=== PATIENT | male | born 1985 | race Caucasian/White ===

== ENCOUNTER 2020-01-10 05:00 | Emergency (ER) | payer OTHER, SELFPAY ==
[2020-01-10 05:08] VITALS: BP 116/83; PULSE 83; RESP 20; TEMP 36; O2SAT 96
--- NOTE | 2020-01-10 05:26 | ED.GENADULT ---
HPI - General Adult General Chief complaint: Urogenital-Male Stated complaint: sti exposure Time Seen by Provider: 01/10/20 05:02 Source: RN notes reviewed History of Present Illness HPI narrative: Patient presents emergency department from home for possible STD exposure. Patient states he had unprotected sexual intercourse approximately 1 week ago. He states that since that time he only symptom is noticed an occasional burning with urination. He does state though that his significant other has had vaginal discharge and he was concerned of a possible STD. He denies having fevers or chills abdominal pain testicular pain or any other symptoms Related Data Allergies Allergy/AdvReac Type Severity Reaction Status Date / Time No Known Allergies Allergy Unknown Verified 12/16/18 17:26 No Known Allergies Allergy Uncoded 12/16/18 17:26 Review of Systems Review of Systems: Narrative: Gen.: Denies fevers or chills Respiratory: Denies shortness of breath or cough CV: Denies chest pain GI: Denies abdominal pain nausea, emesis or diarrhea see HPI Musculoskeletal: Denies back pain or muscle pain Neuro: Denies headache Skin: Denies rash Except as documented, all other systems reviewed and negative [facility] Past Medical History Medical History (Updated 01/10/20 @ 06:00 by Ricardo Weaver DO) Patient denies significant medical history Social History Social History (Updated 01/10/20 @ 05:28 by Ricardo Weaver DO) Smoking status: Current every day smoker Exam Narrative: Exam Narrative: APPEARANCE: No acute distress, nontoxic, resting in bed EYES: EOMI HEENT: Normocephalic, atraumatic, OMM RESPIRATORY: No respiratory distress Clear to auscultation bilaterally with no rhonchi wheezing or rales. CARDIOVASCULAR: Regular rate and rhythm without murmurs rubs or gallops. ABDOMINAL: Soft, nontender, nondistended, no rebound or guarding MUSCULOSKELETAl: Moves all extremities. NEURO: Awake and alert. Following commands, speech normal, no focal deficits SKIN:: Warm, dry. No rashes lesions or abrasions PSYCHIATRIC: Normal affect/mood, Course Course Emergency Course: Discussed with patient testing via swab versus urine for chlamydia and gonorrhea RNA request urine at this time. Of note the patient significant other is in the emergency department being tested and had negative trichomonas test Discussed with patient results of workup and diagnosis. Discussed need for follow-up with primary care, proper use of medication, and reasons to return to the emergency department. Patient understands and agrees to current treatment plan Vital Signs Vital signs: Vital Signs Temperature 96.8 F L 01/10/20 05:08 Pulse Rate 83 01/10/20 05:08 Respiratory Rate 20 01/10/20 05:08 Blood Pressure 116/83 01/10/20 05:08 Pulse Oximetry 96 01/10/20 05:08 Temperature 96.8 F L 01/10/20 05:08 Pulse Rate 83 01/10/20 05:08 Respiratory Rate 20 01/10/20 05:08 Blood Pressure 116/83 01/10/20 05:08 Pulse Oximetry 96 01/10/20 05:08 Medical Decision Making Vital Signs Vital Signs: Vital Signs Temperature 96.8 F L 01/10/20 05:08 Pulse Rate 83 01/10/20 05:08 Respiratory Rate 20 01/10/20 05:08 Blood Pressure 116/83 01/10/20 05:08 Pulse Oximetry 96 01/10/20 05:08 Temperature 96.8 F L 01/10/20 05:08 Pulse Rate 83 01/10/20 05:08 Respiratory Rate 20 01/10/20 05:08 Blood Pressure 116/83 01/10/20 05:08 Pulse Oximetry 96 01/10/20 05:08 Lab Data Labs: Lab Results 01/10/20 Range/Units 05:29 C.trachomatis RNA (TMA) Pending N.gonorrhoeae RNA (TMA) Pending Discharge Plan Discharge Clinical Impression: Sexually transmitted disease exposure Patient Disposition: Home, Self-Care Condition: Stable Instructions: Antibiotic Form, Sexually Transmitted Diseases (ED) Additional Instructions: Return for fever abdominal pain or any other symptoms of concern Follow-up/Refe
[2020-01-10] MEDS: cefTRIAXone 250 MG VIAL IM (06:14)
[2020-01-10] MEDS: AZITHROMYCIN 250 MG TABLET 1000 MG PO (06:14)
[2020-01-10 06:15] VITALS: BP 124/71; PULSE 80; RESP 18; O2SAT 99
== END 2020-01-10 06:17 | disposition home or self-care (01) ==
LOC: ANHED 06:03
PROVIDERS: Emergency Provider Emergency Medicine; PCP Nurse Practitioner Family
DX: Z20.2 Contact with and (suspected) exposure to infections with a predominantly sexual mode of transmission (principal); F17.200 Nicotine dependence, unspecified, uncomplicated
CPT/HCPCS: 87491; 87591; 96372; 99283; A9270; J0696

== ENCOUNTER 2020-05-02 04:48 | Emergency (ER) | payer OTHER, SELFPAY ==
[2020-05-02 04:53] VITALS: BP 141/92; PULSE 120; RESP 18; TEMP 36.8; O2SAT 99
--- NOTE | 2020-05-02 05:22 | ED.GENADULT ---
HPI - General Adult General Chief complaint: Extremity Problem,Nontraumatic Stated complaint: bilat shoulder pain x 4 months now to my back. Time Seen by Provider: 05/02/20 05:00 Source: patient Mode of arrival: ambulatory Limitations: no limitations History of Present Illness HPI narrative: Patient is 34 years old white male presents with intermittent pain across upper back, shoulders and elbow for the last 4 to 5 months. Patient is physically inactive, denying any trauma. Denying any fever, chills, nausea, vomiting, shortness of breath, chest pain or abdominal pain. Related Data Allergies Allergy/AdvReac Type Severity Reaction Status Date / Time No Known Allergies Allergy Unknown Verified 12/16/18 17:26 No Known Allergies Allergy Uncoded 12/16/18 17:26 Review of Systems Review of Systems: Narrative: CONSTITUTIONAL: Denies fever, chills, or sweats. EYES: Denies visual changes, redness, or discharge. ENT: Denies rhinorrhea, congestion, sore throat, or otalgia. CARDIOVASCULAR: Denies chest pain, palpitations, or edema. RESPIRATORY: Denies cough or dyspnea. GASTROINTESTINAL: Denies abdominal pain, nausea, vomiting, or diarrhea. GENITOURINARY: Denies dysuria or hematuria. SKIN: Denies rash or itching. MUSCULOSKELETAL: Denies back pain, joint pain, or myalgia. NEUROLOGIC: Denies headache, numbness, or weakness. PSYCHIATRIC: Denies anxiety or depression. PMFSH Past Medical History Medical History Patient denies significant medical history Social History Social History Smoking status: Current every day smoker Exam Narrative: Exam Narrative: General appearance: Well-developed, well-nourished, patient looks very healthy Skin: Normal color Head: Normocephalic, nontraumatic Eyes: Clear conjunctiva ENT: Oropharynx normal, ears normal, nose normal Neck: Supple, nontender Chest and respiratory: Airway patent, no respiratory distress, no accessory muscle use Heart: Regular rate/rhythm Abdomen: Soft, nontender, no organomegaly, quiet bowel sounds Vascular: Normal peripheral pulses, normal capillary refill. Musculoskeletal: Normal range of motion, nontender back, no swelling, no deformity Neurologic: Alert and oriented ?3, [employer] is normal as tested, no gross motor deficit Course Course Emergency Course: Stable Vital Signs Vital signs: Vital Signs Temperature 36.8 C 05/02/20 04:53 Pulse Rate 120 H 05/02/20 04:53 Respiratory Rate 18 05/02/20 04:53 Blood Pressure 141/92 H 05/02/20 04:53 Pulse Oximetry 99 05/02/20 04:53 Temperature 36.8 C 05/02/20 04:53 Pulse Rate 120 H 05/02/20 04:53 Respiratory Rate 18 05/02/20 04:53 Blood Pressure 141/92 H 05/02/20 04:53 Pulse Oximetry 99 05/02/20 04:53 Medical Decision Making MDM Narrative Medical decision making narrative: Patient came with muscle pain. Denying associated symptoms. Patient probably need to do physical therapy or workout. My plan to discharge him on anti-inflammatory medication and PPI then referred him to his family physician if there is no improvement Differential Diagnosis Differential Diagnosis: Musculoskeletal pain Vital Signs Vital Signs: Vital Signs Temperature 36.8 C 05/02/20 04:53 Pulse Rate 120 H 05/02/20 04:53 Respiratory Rate 18 05/02/20 04:53 Blood Pressure 141/92 H 05/02/20 04:53 Pulse Oximetry 99 05/02/20 04:53 Temperature 36.8 C 05/02/20 04:53 Pulse Rate 120 H 05/02/20 04:53 Respiratory Rate 18 05/02/20 04:53 Blood Pressure 141/92 H 05/02/20 04:53 Pulse Oximetry 99 05/02/20 04:53 Critical Care
[2020-05-02] MEDS: KETOROLAC (*BKC) 60 MG/2 ML VIAL IM (05:45)
[2020-05-02] MEDS: CYCLOBENZAPRINE HCL 10 MG TABLET PO (05:45)
[2020-05-02 06:00] VITALS: BP 117/84; PULSE 111; RESP 16; O2SAT 96
== END 2020-05-02 06:00 | disposition home or self-care (01) ==
PROVIDERS: Emergency Provider Emergency Medicine; PCP Physician Assistant
DX: M25.512 Pain in left shoulder (principal); M25.511 Pain in right shoulder; F17.200 Nicotine dependence, unspecified, uncomplicated
CPT/HCPCS: 96372; 99283; A9270; J1885

== ENCOUNTER 2020-09-18 02:03 | Emergency (ER) | payer MEDICAID, SELFPAY ==
--- NOTE | ~2020-09-18 | CT_ITS ---
EXAMINATION: CT brain wo con INDICATION: Head injury COMPARISON: None TECHNIQUE: Standard unenhanced head CT. The dose-length product (DLP) was 605.33 mGy-cm. The mA was a djusted according to patient size. Iterative reconstruction technique was employed. FINDINGS: There is no acute infarction or abnormal mass lesion. There is a large laceration of the ri ght frontal scalp. There is a hematoma of the left parietal scalp. Areas of hyperattenuation are note d in the bilateral frontal lobes as well as the right temporal lobe. The ventricles are normal. There is no abnormal mass effect or midline shift. The fernandez-white matter differentiation is normal. The ba celia cisterns are patent. The orbits are normal. There is partial opacification of the bilateral maxil delaney sinuses and the left sphenoid sinus. IMPRESSION: 1. Acute subarachnoid hemorrhage in the frontal lobes and right temporal lobe, left parietal scalp he matoma, and right frontal scalp laceration. These findings were discussed with Dr. Royce Zimmerman MD in the Emergency Department at 0256 hours on 09/18/2020 by the [employer] Radiologist. Reviewed, dictated and finalized at location A. IMPRESSION: 1. Acute subarachnoid hemorrhage in the frontal lobes and right temporal lobe, left parietal scalp hematoma, and right frontal scalp laceration. These finding s were discussed with Dr. Royce Zimmerman MD in the Emergency Department at 0256 hours on 09/18/2020 by the [employer] Radiologist.
--- NOTE | ~2020-09-18 | CT_ITS ---
EXAMINATION: CT cervical spine wo con DATE: 09/18/2020 02:29 INDICATION: Neck pain, head injury TECHNIQUE: Computed tomography (CT) of the cervical spine was performed without intravenous contrast. The dose-length product (DLP) was 400.21 mGy-cm. Automated exposure control and iterative reconstruc tion technique were employed. COMPARISON: None FINDINGS: There is no fracture, dislocation, or subluxation. The vertebral body heights, alignment, a nd intervertebral disc spaces are normal. The paravertebral soft tissues are unremarkable. The odonto id is intact. IMPRESSION: 1. No acute osseous abnormality. Reviewed, dictated and finalized at location A.
[2020-09-18 02:06] VITALS: BP 142/93; PULSE 107; RESP 20; TEMP 36.7; O2SAT 98
--- NOTE | 2020-09-18 02:21 | PC.NURSE ---
Patient taken to CT via stretcher.
--- NOTE | 2020-09-18 02:32 | ED.HEATRA ---
HPI - Head Injury General Chief complaint: Head Injury Stated complaint: head laceration Time Seen by Provider: 09/18/20 02:10 History of Present Illness HPI Narrative: Patient is a 35-year-old male who presents to the ER with head trauma. Patient with large laceration to the right forehead and laceration behind the left ear. Patient reports remembers trying to walk down some stairs but is unsure if he walked down them or fell down them. He was dropped off by a friend who does not have a cell phone for him to contact to find out what happened. Patient reports he drinks 6 Budweiser's and had a pint of whiskey this evening. Has no complaints of change in vision/dizziness/nausea/vomiting/headache. Related Data Home Medications Medication Instructions Recorded Confirmed mirtazapine [Remeron] mg 09/18/20 Allergies Allergy/AdvReac Type Severity Reaction Status Date / Time No Known Allergies Allergy Unknown Verified 09/18/20 02:16 Review of Systems Review of Systems: ROS unobtainable: Yes other (Intoxication limits review of systems.) PMFSH Past Medical History Medical History (Updated 09/18/20 @ 03:28 by Royce Zimmerman MD) Patient denies significant medical history Surgical History Surgical History (Updated 09/18/20 @ 02:34 by Royce Zimmerman MD) History of fundoplication Social History Social History (Updated 09/18/20 @ 02:34 by Royce Zimmerman MD) Smoking status: Current every day smoker Alcohol intake: current Exam Narrative: Exam Narrative: GENERAL: Ill-appearing, well-nourished, and in no acute distress. HEAD: Normocephalic, gaping 4x 1.5 cm laceration right forehead. Dried blood across the face/scalp/neck. 2 cm laceration behind the left ear over the mastoid with soft tissue swelling. EYES: PERRL and EOMI. Contusion around right eye. ENT: Mucous membranes moist. NECK: Supple. C-Spine immobilized. CHEST: Clear to auscultation. No respiratory distress. HEART: Regular rate and rhythm. Normal peripheral pulses. ABDOMEN: Soft, nontender, nondistended. EXTREMITIES: Normal range of motion. No edema. SKIN: Warm, dry, no rash. NEURO: Alert and oriented x3. Course Course Emergency Course: Patient accepted for transfer to [facility]. After transfer patient became very argumentative and was wanting to walk out AGAINST MEDICAL ADVICE or sign papers to get discharged. Discussed that due to his intoxication, and his multiple areas of brain bleed I do not feel he is able to make an informed decision to refuse any sort of care. Patient was then given Ativan 2 mg. An ambulance is on the leg. Patient's mother was contacted by the patient and she was wanting the patient to be taken to [facility] by ambulance at the recommendation of this physician. After this patient continues to be agitated and received fentanyl for pain. He then calmed down. Ambulance arrived and he was agreeable to transport after once again contacting his mother via [employer] to discuss the situation. Vital Signs Vital signs: Vital Signs Temperature 98.1 F 09/18/20 02:06 Pulse Rate 107 H 09/18/20 02:06 Respiratory Rate 20 09/18/20 02:06 Blood Pressure 142/93 H 09/18/20 02:06 Pulse Oximetry 98 09/18/20 02:06 Temperature 98.1 F 09/18/20 03:45 Pulse Rate 102 H 09/18/20 03:45 Respiratory Rate 18 09/18/20 03:45 Blood Pressure 131/90 09/18/20 03:45 Pulse Oximetry 98 09/18/20 03:45 MDM - Head Injury Imaging Data Radiologist's impression: CT head: Multiple areas of subarachnoid hemorrhage. Pneumocephalus left temporal region. CT cervical spine: No acute fracture of the cervical spine. Critical Care Time Critical Care Time Critical Care Time: Yes Total Critical Care Time: 35 Discharge Plan Discharge Clinical Impression: Traumatic subarachnoid hemorrhage, Pneumocephalus Patient Disposition: Acute Care Hospital Condition: Serious Prescriptions: No Actio
--- NOTE | 2020-09-18 02:49 | PC.NURSE ---
VORB place patient in c-collar. C-collar placed.
--- NOTE | 2020-09-18 03:14 | PC.NURSE ---
Patient informed of his condition and need for transport. Patient removed his c-collar and attempting to remove IV. Patient informed of the severity of his condition. Patient started yelling and got out of bed. ERP, this nurse and digital imaging technician in room. Patient stating I know my rights, I am leaving here. My mom is coming to pick me up to take me there. I am leaving now! Patient informed that he is unable to do so, he is intoxicated. ERP in room and gave VORB at 0322 to give 2mg ativan IVP. Patient given med. ERP explaining to patient on why he cannot leave. Patient assisted back to [facility].
[2020-09-18] MEDS: LORazepam INJ (*CRX) 2 MG/ML VIAL (03:22)
--- NOTE | 2020-09-18 03:22 | PC.NURSE ---
VORB give 2mg ativan IVP. Given at 0322.
[2020-09-18] MEDS: fentaNYL CITRATE INJ (*CRX) 100 MCG/2 ML VIAL 50 MCG IV PUSH (03:35)
--- NOTE | 2020-09-18 03:41 | PC.NURSE ---
EMS here to transport patient. Patient agreeable at this time. C-collar placed back on.
[2020-09-18 03:45] VITALS: BP 131/90; PULSE 102; RESP 18; TEMP 36.7; O2SAT 98
== END 2020-09-18 03:47 | disposition short-term general hospital (02) ==
PROVIDERS: Emergency Provider Emergency Medicine; PCP Physician Assistant
DX: S06.6X9A Traumatic subarachnoid hemorrhage with loss of consciousness of unspecified duration, initial encounter (principal); G93.89 Other specified disorders of brain; F17.210 Nicotine dependence, cigarettes, uncomplicated; W10.9XXA Fall (on) (from) unspecified stairs and steps, initial encounter
CPT/HCPCS: 70450; 72125; 96374; 96375; 99291; J2060; J3010; L0140

== ENCOUNTER 2020-10-19 21:31 | Emergency (ER) | payer BC, SELFPAY ==
[2020-10-19 21:49] VITALS: BP 136/95; PULSE 105; RESP 14; TEMP 36.6; O2SAT 99
[2020-10-19 22:36] VITALS: BP 108/74; PULSE 97; RESP 18; TEMP 36.6; O2SAT 96
--- NOTE | 2020-10-19 23:24 | ED.WOUNDLAC ---
HPI - Wound/Laceration General Chief Complaint: Wound/Laceration Stated Complaint: INFECTED WOUND Time Seen by Provider: 10/19/20 22:41 Source: patient and family Mode of arrival: ambulatory Limitations: no limitations History of Present Illness HPI narrative: 35-year-old here with complaints of purulent drainage coming from his laceration which he sustained a month ago. Patient states that he will was hit by a baseball had sutures placed here in the ER and was later transferred to [facility]. For the past few days he has noticed some pus coming out from the site also states that he noticed a small suture material. Denies any fever or chills. Onset (ago): day(s) (2) Location: face Associated symptoms: none Related Data Home Medications Medication Instructions Recorded Confirmed mirtazapine [Remeron] mg 09/18/20 Allergies Allergy/AdvReac Type Severity Reaction Status Date / Time No Known Allergies Allergy Unknown Verified 10/19/20 22:44 Review of Systems Review of Systems: All systems reviewed & are unremarkable except as noted in HPI and below Constitutional: Constitutional: Reports no additional constitutional complaints Eyes: Eyes: Reports no additional eye complaints Cardiovascular: Cardiovascular: Reports no additional cardiovascular complaints Respiratory: Respiratory: Reports no additional respiratory complaints Gastrointestinal: Gastrointestinal: Reports no additional gastrointestinal complaints Musculoskeletal: Musculoskeletal: Reports no additional musculoskeletal complaints Integumentary/Breasts: Skin/Breast: Reports as per HPI Neurologic: Reports system reviewed and no additional complaints, except as documented PMFSH Past Medical History Medical History Patient denies significant medical history Surgical History Surgical History History of fundoplication Social History Social History Smoking status: Current every day smoker Alcohol intake: current Exam Narrative: GENERAL: Well-appearing, well-nourished, and in no acute distress. HEAD: Normocephalic, atraumatic. a small area on the right side of the face has scab with a suture material protruding through the skin and some purulent drainage . EYES: PERRLA and EOMI. ENT: Nares clear, no rhinorrhea or epistaxis. Mucous membranes moist. NECK: Supple. CHEST: Clear to auscultation. No respiratory distress. HEART: Regular rate and rhythm. No murmur heard. Normal peripheral pulses. EXTREMITIES: Normal range of motion. No edema. SKIN: Warm, dry, no rash. NEURO: No focal deficits. Alert and oriented x3. PSYCH: Normal mood and affect. Course Vital Signs Vital signs: Vital Signs Temperature 36.6 C 10/19/20 21:49 Pulse Rate 105 H 10/19/20 21:49 Respiratory Rate 14 10/19/20 21:49 Blood Pressure 136/95 H 10/19/20 21:49 Pulse Oximetry 99 10/19/20 21:49 Temperature 36.6 C 10/19/20 22:36 Pulse Rate 97 10/19/20 22:36 Respiratory Rate 18 10/19/20 22:36 Blood Pressure 108/74 10/19/20 22:36 Pulse Oximetry 96 10/19/20 22:36 Procedures Other Procedure Procedure 1: Other Procedure: suture was removed with forceps Discharge Plan Discharge Clinical Impression: Infected wound Patient Disposition: Home, Self-Care Condition: Stable Instructions: Antibiotic Form, Acute Wounds (DC) Additional Instructions: take antibiotic as prescribe Prescriptions: New amoxicillin-pot clavulanate [Augmentin] 875-125 mg tablet 1 tablet PO Q12H Qty: 20 RF: 0 No Action mirtazapine [Remeron] 30 mg Tablet RF: 0 Follow-up/Referrals: PHYSICIAN NOT ON STAFF,NONSTAFF [Primary Care Provider] - Shaggy Fisher MD [Physician] - Time of Disposition: 23:26
--- NOTE | 2020-10-19 23:53 | PC.NURSE ---
Pt left before being given discharge papers. Multiple attempts made to contact patient over the phone, no success at this time.
== END 2020-10-19 23:45 | disposition home or self-care (01) ==
PROVIDERS: Emergency Provider Family Medicine
DX: S01.81XA Laceration without foreign body of other part of head, initial encounter (principal); L08.9 Local infection of the skin and subcutaneous tissue, unspecified; W21.03XA Struck by baseball, initial encounter
CPT/HCPCS: 99283

== ENCOUNTER 2020-12-20 20:19 | Emergency (ER) | payer BC, SELFPAY ==
--- NOTE | ~2020-12-20 | CT_ITS ---
EXAMINATION: CT brain wo con EXAM DATE: 12/20/2020 20:52 INDICATION: Head injury, neuro symptoms. Bilateral hand numbness. TECHNIQUE: Spiral CT of the head was performed without contrast. Axial, coronal and sagittal images were reviewed. The dose-length product (DLP) for this examination was 605.33 mGy-cm. The exposure w as tailored according to patient size, and iterative reconstruction (ASIR) was used as additional dos e reduction technique. There is no prior study for comparison. FINDINGS: There is no acute intraparenchymal hemorrhage. No evidence of intraparenchymal brain mass lesion. No evidence of acute infarction. There is no mass effect or midline shift. The ventricles are normal in size. There are no extra-axial collections. There are no acute calvarial fractures. T he orbits are unremarkable. Soft tissue is unremarkable. The visualized sinuses and mastoid air kurt ls are well aerated. Resolution of previously seen subarachnoid hemorrhage. IMPRESSION: 1. No acute intracranial findings. Reviewed, dictated and finalized at location A.
[2020-12-20 20:33] VITALS: BP 153/99; PULSE 108; RESP 14; TEMP 36.8; O2SAT 99
[2020-12-20 21:39] VITALS: BP 128/71; PULSE 89; RESP 14; TEMP 36.6; O2SAT 98
[2020-12-20 21:52] VITALS: BP 120/88; PULSE 97; RESP 16; O2SAT 98
--- NOTE | 2020-12-20 22:23 | ED.NEUROSD ---
HPI - Neuro Symptoms/Deficit General Chief Complaint: Neuro Symptoms/Deficit Stated Complaint: bilateral hand numbness, 1 month Time Seen by Provider: 12/20/20 22:05 Source: patient History of Present Illness HPI Narrative: Patient presents with concerns for paresthesias to his bilateral hands. Patient reports he was seen a few months ago for a head injury had head bleeds was referred to [facility] was discharged home. Patient ports he has not followed up with anyone since his head injuries. Couple weeks after his head injury he noted bilateral numbness to his hands describes sensation in his hands fall asleep. Symptoms are constant all fingers and on the palmar surface of his hands. Denies any focal weakness. Also reports intermittent shooting sensation of numbness throughout his body. Patient is unable to identify any clear triggering events. His symptoms were not more prevalent any particular time of day they do not appear to be associated with headache. Denies any additional head injuries. Related Data Home Medications Medication Instructions Recorded Confirmed mirtazapine [Remeron] mg 09/18/20 Allergies Allergy/AdvReac Type Severity Reaction Status Date / Time No Known Allergies Allergy Unknown Verified 12/20/20 21:59 Review of Systems Review of Systems: CONSTITUTIONAL: Denies fever, chills, or sweats. EYES: Denies visual changes, redness, or discharge. ENT: Denies rhinorrhea, congestion, sore throat, or otalgia. CARDIOVASCULAR: Denies chest pain, palpitations, or edema. RESPIRATORY: Denies cough or dyspnea. GASTROINTESTINAL: Denies abdominal pain, nausea, vomiting, or diarrhea. GENITOURINARY: Denies dysuria or hematuria. SKIN: Denies rash or itching. MUSCULOSKELETAL: Denies back pain, joint pain, or myalgia. NEUROLOGIC: Denies headache, dizziness, or weakness. PSYCHIATRIC: Denies anxiety or depression. All systems reviewed & are unremarkable except as noted in HPI and below PMFSH Past Medical History Medical History Patient denies significant medical history Surgical History Surgical History History of fundoplication Social History Social History Smoking status: Current every day smoker Alcohol intake: current Exam Narrative: GENERAL: Well-appearing, well-nourished, and in no acute distress. HEAD: Normocephalic, atraumatic. EYES: PERRLA and EOMI. ENT: Nares clear, no rhinorrhea or epistaxis. Mucous membranes moist. NECK: Supple. No masses. No JVD EXTREMITIES: Normal range of motion. No edema. SKIN: Warm, dry, no rash. NEURO: Cranial nerves 2 through 12 are intact patient has 5 out of 5 strength in all extremities, sensation intact to light in all extremities alert and oriented x3. PSYCH: Normal mood and affect. Course Vital Signs Vital signs: Vital Signs Temperature 36.8 C 12/20/20 20:33 Pulse Rate 108 H 12/20/20 20:33 Respiratory Rate 14 12/20/20 20:33 Blood Pressure 153/99 H 12/20/20 20:33 Pulse Oximetry 99 12/20/20 20:33 Temperature 36.6 C 12/20/20 21:39 Pulse Rate 76 12/20/20 22:30 Respiratory Rate 14 12/20/20 22:30 Blood Pressure 130/81 12/20/20 22:30 Pulse Oximetry 97 12/20/20 22:30 MDM - Neuro Symptoms/Deficit MDM Narrative Medical decision making narrative: H&P as above, vs initially with mild tachycardia resolved without intervention, pt looks clinically well, exam without focal neurological deficits,img clinically unremarkable, additional labs/img considered, symptomatic relief available as needed, on reevaluation pt continues to looks clinically well. Suspect paresthesias remote head injury, dns active intracranial hemorrhage, cord compromise, electrolyte abnormalities. plan to tx/monitor as op w/ pcm f/u findings/plan discussed with pt, pt agree/comfortable with plan
[2020-12-20 22:30] VITALS: BP 130/81; PULSE 76; RESP 14; O2SAT 97
== END 2020-12-20 22:30 | disposition home or self-care (01) ==
PROVIDERS: Emergency Provider Emergency Medicine; PCP Physician Assistant
DX: R20.2 Paresthesia of skin (principal)
CPT/HCPCS: 70450; 99284

== ENCOUNTER 2020-12-29 06:27 | Emergency (ER) | payer BC, SELFPAY ==
[2020-12-29 06:29] VITALS: BP 146/84; PULSE 114; RESP 16; TEMP 36.4; O2SAT 97
[2020-12-29] MEDS: BACITRACIN OINTMENT 15 GM TUBE 1 APPLIC (08:05)
--- NOTE | 2020-12-29 08:23 | ED.WOUNDLAC ---
HPI - Wound/Laceration General Chief Complaint: Wound/Laceration Stated Complaint: i think i need a couple stitches Time Seen by Provider: 12/29/20 07:18 History of Present Illness HPI narrative: Dropped empty soup can on foot. He noted laceration so he came to the ER for evaluation. Patient did not feel he broke his foot reports pain just the laceration site but is burning, constant, with moving his toe, no radiation. Patient is unsure of his last tetanus shot. Denies any focal numbness or weakness Related Data Home Medications Medication Instructions Recorded Confirmed No Home Medications 12/29/20 12/29/20 Allergies Allergy/AdvReac Type Severity Reaction Status Date / Time No Known Allergies Allergy Unknown Verified 12/29/20 06:46 Review of Systems Review of Systems: CONSTITUTIONAL: Denies fever, chills, or sweats. CARDIOVASCULAR: Denies chest pain, palpitations, or edema. RESPIRATORY: Denies cough or dyspnea. GASTROINTESTINAL: Denies abdominal pain, nausea, vomiting, or diarrhea. MUSCULOSKELETAL: Denies back pain, or myalgia. NEUROLOGIC: Denies headache, numbness, dizziness, or weakness. PSYCHIATRIC: Denies anxiety or depression. [facility] Past Medical History Medical History Patient denies significant medical history Surgical History Surgical History History of fundoplication Social History Social History Smoking status: Current every day smoker Alcohol intake: current Exam Narrative: GENERAL: Well-appearing, well-nourished, and in no acute distress. HEAD: Normocephalic, atraumatic. EYES: PERRLA and EOMI. ENT: Nares clear, no rhinorrhea or epistaxis. Mucous membranes moist. NECK: Supple. No masses. No JVD EXTREMITIES: Normal range of motion. Superficial laceration to the dorsal aspect of the third right. Wound examined through full range of motion no deep space tissue was identified such as tendon bone or large vessels SKIN: Warm, dry, no rash. NEURO: No focal deficits. Alert and oriented x3. PSYCH: Normal mood and affect. Course Vital Signs Vital signs: Vital Signs Temperature 36.4 C 12/29/20 06:29 Pulse Rate 114 H 12/29/20 06:29 Respiratory Rate 16 12/29/20 06:29 Blood Pressure 146/84 H 12/29/20 06:29 Pulse Oximetry 97 12/29/20 06:29 Temperature 36.4 C 12/29/20 06:29 Pulse Rate 114 H 12/29/20 06:29 Respiratory Rate 16 12/29/20 06:29 Blood Pressure 146/84 H 12/29/20 06:29 Pulse Oximetry 97 12/29/20 06:29 MDM - Wound/Laceration MDM Narrative Medical decision making narrative: Patient presented with a laceration after dropping a empty soup can on his toe. Distal extremities neurovascularly intact. Patient offered imaging multiple times to evaluate for fracture patient declined, wound was irrigated. Attempted skin adhesive however patient was still bleeding after irrigation and exploration. wound was rewrapped for bleeding control with plan to reapply skin adhesive. Patient left prior to reapplication of skin adhesive. Wound edges were well approximated already and would likely heal without further intervention. Patient's tetanus was updated while in the ER Discharge Plan Discharge Clinical Impression: Laceration Patient Disposition: Elopement After Seen by Prov Condition: Improved Prescriptions: No Action No Home Medications RF: 0 Follow-up/Referrals: Phong,MICKY Mcneil [Primary Care Provider] - Time of Disposition: 10:00
== END 2020-12-29 09:05 | disposition left against medical advice (07) ==
PROVIDERS: Emergency Provider Emergency Medicine; PCP Physician Assistant
DX: S91.112A Laceration without foreign body of left great toe without damage to nail, initial encounter (principal); W20.8XXA Other cause of strike by thrown, projected or falling object, initial encounter; F17.200 Nicotine dependence, unspecified, uncomplicated
CPT/HCPCS: 12001; 99282; A9270

== ENCOUNTER 2021-02-24 22:58 | Emergency (ER) | payer BC, SELFPAY ==
--- NOTE | ~2021-02-24 | XR_ITS ---
EXAMINATION: XR hand RT min 3V EXAM DATE: 02/24/2021 23:14 INDICATION: Punching injury, right hand pain, laceration. TECHNIQUE: Right hand frontal, lateral and oblique projections obtained and reviewed. There is no pr ior study for comparison. FINDINGS: Lucency through the 4th metacarpal shaft suspected more likely vascular groove than acute c losed posttraumatic nondisplaced fracture. This finding has been indicated, marked on the examination for review, clinical correlation. Swelling over the 5th metatarsal base. IMPRESSION: Lucency through the right 4th metacarpal shaft suspected more likely vascular groove than acute closed posttraumatic nondisplaced fracture. Reviewed, dictated and finalized at location A. PLANS STAFF OFFICER IMPRESSION: Lucency through the right 4th metacarpal shaft suspected more likel y vascular groove than acute closed posttraumatic nondisplaced fracture.
[2021-02-24 23:01] VITALS: BP 116/91; PULSE 97; RESP 18; TEMP 36.9; O2SAT 99
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
[2021-02-24] MEDS: LIDO 1%/EPINEPHRINE 1:100,000 20 ML VIAL (23:50)
[2021-02-25 00:15] VITALS: BP 106/70; PULSE 89; RESP 16; O2SAT 100
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
== END 2021-02-25 00:17 ==
PROVIDERS: Emergency Provider General Practice; PCP Internal Medicine
DX: S61.411A Laceration without foreign body of right hand, initial encounter (principal); F17.210 Nicotine dependence, cigarettes, uncomplicated; W22.09XA Striking against other stationary object, initial encounter
CPT/HCPCS: 12002; 73130; 99283

== ENCOUNTER 2021-04-26 17:35 | Emergency (ER) | payer BC, SELFPAY ==
[2021-04-26 17:37] VITALS: BP 146/92; PULSE 101; RESP 17; TEMP 36.4; O2SAT 98
--- NOTE | 2021-04-26 18:43 | PC.NURSE ---
called to go to room, not in lobby
== END 2021-04-26 18:55 | disposition left against medical advice (07) ==
LOC: ANHED 18:49
PROVIDERS: PCP Internal Medicine
DX: R10.10 Upper abdominal pain, unspecified (principal)
CPT/HCPCS: 99199

== ENCOUNTER 2021-07-21 08:44 | Outpatient (CLI) | payer BC, SELFPAY ==
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
== END 2021-07-21 08:45 | disposition home or self-care (01) ==
LOC: ANHNEURO 08:46
PROVIDERS: PCP Internal Medicine; Visit Provider Psychiatry & Neurology Neurology
DX: R20.2 Paresthesia of skin (principal)
CPT/HCPCS: 95816

== ENCOUNTER 2021-08-31 16:46 | Emergency (ER) | payer BC, SELFPAY ==
[2021-08-31 16:58] VITALS: BP 118/76; PULSE 98; RESP 20; TEMP 36.9; O2SAT 99
== END 2021-08-31 18:00 | disposition left against medical advice (07) ==
LOC: ANHED 18:15
PROVIDERS: PCP Internal Medicine
DX: Z20.822 Contact with and (suspected) exposure to COVID-19 (principal)
CPT/HCPCS: 99199

== ENCOUNTER 2021-10-12 05:26 | Emergency (ER) | payer BC, SELFPAY ==
[2021-10-12 05:29] VITALS: BP 135/99; PULSE 77; RESP 18; TEMP 36.9; O2SAT 98
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
[2021-10-12 06:41] LABS: Basophils Absolute Auto 0.1 K/mm3 (0.0-0.1); Basophils Percent Auto 0.9 % (0.2-1.2); Eosinophils Absolute Auto 0.1 K/mm3 (0-0.3); Eosinophils Percent Auto 0.8 % (0-4.4); Hematocrit 49.2 % (42.0-52.0); Hemoglobin 16.4 g/dL (14.0-18.0); Immature Granulocyte Absolute 0.04 K/mm3 (0.00-0.031); Immature Granulocyte Percent A 0.5 % (0-0.5); Lymphocytes Absolute Auto 2.13 K/mm3 (0.9-3.2); Lymphocytes Percent Auto 26.8 % (18.3-44.2); Mean Corpuscular HGB Conc 33.3 g/dl (32-36); Mean Corpuscular Hemoglobin 32.4 pg (26-34); Mean Corpuscular Volume 97.2 fl (80-100); Mean Platelet Volume 10.4 fl (7.4-10.4); Monocytes Absolute Auto 0.7 K/mm3 (0.1-0.6); Monocytes Percent Auto 8.2 % (2.6-8.5); Neutrophils Percent Auto 62.8 % (45.5-73.1); Platelet Count Result 197 k/mm3 (150-375); Red Blood Count 5.06 M/mm3 (4.6-6.20); Red Cell Distribution Width 13.2 % (11.5-14.5); White Blood Count 7.9 K/mm3 (4.5-10.0)
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
--- NOTE | 2021-10-12 06:57 | PC.NURSE ---
Charito is refusing SI/HI at this time and is refusing green scrubs. ED charge aware as well as EDP Peri
[2021-10-12 07:02] LABS: Alanine Aminotransferase 34 U/L (6-50); Albumin Level 4.7 g/dL (3.5-5.1); Alkaline Phosphatase 56 U/L (38-126); Anion Gap 15 mmol/L (8-16); Aspartate Amino Transferase 39 U/L (17-59); Bilirubin,Total 1.3 mg/dL (0.2-1.3); Blood Urea Nitrogen 12 mg/dL (9-20); Calcium 9.3 mg/dL (8.4-10.2); Carbon Dioxide 24 mmol/L (22-30); Chloride 105 mmol/L (98-107); Estimated CRCL calculation 93 ml/min; Estimated Glomerular Filt Rate > 60; Glucose 93 mg/dL (65-110); Potassium 4.2 mmol/L (3.4-5.0); Sodium 144 mmol/L (137-145)
--- NOTE | 2021-10-12 07:13 | PC.NURSE ---
pt ambulated to waiting area. this RN and charge authorizer redirecting pt back to his room. pt refusing to listen. pt walked out ER doors. Mahsa SALCIDO called.
--- NOTE | 2021-10-12 07:41 | PC.NURSE ---
Mahsa SALCIDO still searching for pt.
[2021-10-12 08:00] LABS: Acetaminophen < 10 ug/mL (10-30); Ethanol 229 mg/dL (<10); Salicylate < 1.0 mg/dL (2-20)
== END 2021-10-12 07:43 | disposition left against medical advice (07) ==
LOC: ANHED 06:25
PROVIDERS: Emergency Provider Emergency Medicine; PCP Internal Medicine
DX: F41.9 Anxiety disorder, unspecified (principal); F19.10 Other psychoactive substance abuse, uncomplicated; F17.210 Nicotine dependence, cigarettes, uncomplicated
CPT/HCPCS: 36415; 80053; 80307; 84443; 85025; 99283

== ENCOUNTER 2021-10-25 17:47 | Emergency (ER) | payer BC, SELFPAY ==
[2021-10-25 18:04] VITALS: BP 104/58; PULSE 122; RESP 16; TEMP 36.8; O2SAT 100
--- NOTE | 2021-10-25 18:09 | PC.NURSE ---
pt stating he wants to leave and not be seen. EDP made aware.
--- NOTE | 2021-10-25 18:26 | PC.NURSE ---
EDP saw patient and gave fit for confinement VORB. pt out of department in PD custody.
== END 2021-10-25 18:29 | disposition left against medical advice (07) ==
LOC: ANHED 18:28
PROVIDERS: PCP Internal Medicine
DX: R47.81 Slurred speech (principal)
CPT/HCPCS: 99199

== ENCOUNTER 2022-04-13 06:26 | Emergency (ER) | payer BC, SELFPAY ==
--- NOTE | ~2022-04-13 | XR_ITS ---
Supine and upright views of the abdomen Clinical history: Dislodged G-tube Findings: Bowel gas pattern is nonspecific. Percutaneous gastrostomy tube noted. Oral contrast presen t throughout large bowel. No evidence for obstruction or free air. No abnormal mass lesion or calcifi cation is seen. Osseous structures are intact. Impression: Nonspecific bowel gas pattern. Percutaneous gastrostomy tube present. No definite abnormal extravasation of contrast seen, but the i njected contrast is poorly visualized on the final image. Reviewed, dictated and finalized at location M. MACHINE OPERATOR Impression: Nonspecific bowel gas pattern. Percutaneous gastrostomy tube present. No definite abnormal extravasation of co ntrast seen, but the injected contrast is poorly visualized on the final image.
[2022-04-13 06:29] VITALS: BP 96/71; PULSE 61; RESP 14; TEMP 36.6; O2SAT 100
--- NOTE | 2022-04-13 06:47 | PC.NURSE ---
ERP replaced G-tube in L lower abdomen. pt. has 16 FR. pt. tolerated well.
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
--- NOTE | 2022-04-13 08:30 | PC.NURSE ---
anh soria accepted return to [facility] 0900 trip #[id number]
[2022-04-13 09:07] VITALS: BP 97/69; PULSE 54; RESP 16; O2SAT 100
== END 2022-04-13 09:07 ==
PROVIDERS: Emergency Provider Family Medicine; PCP Internal Medicine
DX: Z43.1 Encounter for attention to gastrostomy (principal); Z87.820 Personal history of traumatic brain injury; F17.210 Nicotine dependence, cigarettes, uncomplicated
CPT/HCPCS: 49465; 99284

== ENCOUNTER 2022-06-18 09:54 | Emergency (ER) | payer BC, SELFPAY ==
--- NOTE | ~2022-06-18 | CT_ITS ---
EXAMINATION: CT cervical spine wo con DATE: 06/18/2022 11:29 INDICATION: Neck injury. TECHNIQUE: Computed tomography (CT) of the cervical spine was performed without intravenous contrast. Automated exposure control and iterative reconstruction technique were employed. The dose-length pro duct was 305.20 mGy-cm. COMPARISON: CT cervical spine 09/18/2020 FINDINGS: There is cerumen in the left external auditory canal. There is 6 degrees levocurvature of c ervical spine. Vertebral body heights are normal. There is mildly decreased disc height at C4-C5. The re are changes of posterior fusion procedure in thoracic spine. The following disc levels are specifi farhat discussed: C2-C3: There is mild bilateral uncovertebral joint osteoarthritis. There is mild right facet joint os teoarthritis. There is no neural foraminal stenosis. There is no central canal stenosis. C3-C4: There is mild bilateral uncovertebral joint osteoarthritis. There is mild right facet joint os teoarthritis. There is mild bilateral neural foraminal stenosis. There is no central canal stenosis. C4-C5: There is mild bilateral uncovertebral joint osteoarthritis. There is no facet joint osteoarthr itis. There is no neural foraminal stenosis. There is no central canal stenosis. C5-C6: There is no uncovertebral joint osteoarthritis. There is no facet joint osteoarthritis. There is no neural foraminal stenosis. There is no central canal stenosis. C6-C7: There is no uncovertebral joint osteoarthritis. There is no facet joint osteoarthritis. There is no neural foraminal stenosis. There is no central canal stenosis. C7-T1: There is no uncovertebral joint osteoarthritis. There is mild bilateral facet joint osteoarthr itis. There is no neural foraminal stenosis. There is no central canal stenosis. IMPRESSION: 1. No fracture. 2. Mild cervical spondylosis. Reviewed, dictated and finalized at location A.
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
--- NOTE | ~2022-06-18 | CT_ITS ---
EXAMINATION: CT brain wo con DATE: 06/18/2022 11:28 INDICATION: Fall with head injury TECHNIQUE: Computed tomography (CT) of the head was performed without intravenous contrast. Sagittal and coronal reconstructions were performed. The mA was adjusted according to patient size. Iterative reconstruction technique was employed. The dose-length product was 605.33 mGy-cm. COMPARISON: head CT dated 12/20/2020 FINDINGS: No fracture. Small region of chronic encephalomalacia, new since the prior study lentiform nucleus an d centered at the left lentiform nucleus and subinsular white matter. No acute intracranial hemorrhag e, acute infarction or abnormal extra axial fluid collection. Ventricles are normal and symmetric. No mass/mass effect. The orbits, paranasal sinuses and mastoid air cells are normal. IMPRESSION: 1. No fracture or acute intracranial process. 2. Chronic encephalomalacia at the left lentiform nucleus and subinsular white matter suggestive of p rior infarct. Reviewed, dictated and finalized at location A. IMPRESSION: 1. No fracture or acute intracranial process. 2. Chronic encephalomalacia at the left lentiform nucleus and subinsular white matter suggestive of prior infarct.
[2022-06-18 09:55] VITALS: BP 113/83; PULSE 99; RESP 18; TEMP 36.7; O2SAT 100
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
[2022-06-18] MEDS: KETOROLAC (*BKC) 60 MG/2 ML VIAL IM (11:01)
[2022-06-18 12:23] VITALS: BP 122/86; PULSE 94; RESP 14; O2SAT 98
--- NOTE | 2022-06-18 14:22 | PC.NURSE ---
[facility] HERE TO TRANSPORT PT BACK TO [facility]
== END 2022-06-18 14:23 | disposition home or self-care (01) ==
PROVIDERS: Emergency Provider Physician Assistant; PCP Internal Medicine
DX: S09.90XA Unspecified injury of head, initial encounter (principal); F17.210 Nicotine dependence, cigarettes, uncomplicated; Z87.820 Personal history of traumatic brain injury; G93.89 Other specified disorders of brain; M47.812 Spondylosis without myelopathy or radiculopathy, cervical region; Z98.1 Arthrodesis status; S22.061S Stable burst fracture of T7-T8 vertebra, sequela; Z99.3 Dependence on wheelchair; W05.0XXA Fall from non-moving wheelchair, initial encounter; X58.XXXS Exposure to other specified factors, sequela
CPT/HCPCS: 70450; 72125; 72128; 96372; 99284; J1885

== ENCOUNTER 2022-07-03 17:58 | Observation (INO) | payer BC, SELFPAY ==
[2022-07-03] VITALS (12 sets, daily range): BP systolic 94–113; BP diastolic 70–84; PULSE 107–144; RESP 16–23; TEMP 37.6–38.9; O2SAT 95–99
--- NOTE | ~2022-07-03 | CT_ITS ---
EXAMINATION: CT soft tissue neck wo con DATE: 07/03/2022 21:24 INDICATION: Fever following recent instrumentation. TECHNIQUE: Computed tomography (CT) of the neck was performed without intravenous contrast. The dose- length product was 570.77 mGy-cm. Automated exposure control and iterative reconstruction technique w ere employed. COMPARISON: None FINDINGS: Visualized intracranial content are unremarkable. There is mild mucosal thickening of the m axillary and the ethmoid sinuses. Mastoids are pneumatized. Parapharyngeal spaces are symmetric. No s ignificant cervical lymph node enlargement. No paraspinal soft tissue abnormality. No mass effect on the airway. There is patchy consolidation of the right upper and bilateral lower lobes, consistent wi th pneumonia. Cannot exclude aspiration. The epiglottis is unremarkable. No significant abnormality o f the cervical spine. Spinal fusion changes of the upper thoracic spine are partially visualized. IMPRESSION: 1. Patchy consolidation of the right upper and bilateral lower lobes, consistent with pneumonia. Cons ider aspiration in the appropriate clinical setting. Reviewed, dictated and finalized at location A. IMPRESSION: 1. Patchy consolidation of the right upper and bilateral lower lobes, consisten t with pneumonia. Consider aspiration in the appropriate clinical setting.
--- NOTE | ~2022-07-03 | XR_ITS ---
XR chest 2V 07/03/2022 19:19 Indication: Fever. Procedure: AP and lateral views of the chest Comparison: 03/29/2012 Findings: Elevated right diaphragm. Heart size normal. There are Watkins rods transfixing the thor acic spine. There is left basilar atelectasis. No significant effusion or pneumothorax. Impression: 1: Left basilar atelectasis. 2: Elevated right diaphragm, suspicious for phrenic nerve paralysis. Reviewed, dictated and finalized at location A. Impression: 1: Left basilar atelectasis. 2: Elevated right diaphragm, suspicious for phrenic nerve paralysis.
--- NOTE | ~2022-07-03 | CT_ITS ---
EXAMINATION: CT chest abdomen pelvis w con DATE: 07/03/2022 21:41 CDT INDICATION: Fever with recent instrumentation. TECHNIQUE: Computed tomography (CT) of the chest, abdomen, and pelvis was performed without intraveno us contrast. The dose-length product was 1139.83 mGy-cm. Automated exposure control and iterative rec onstruction technique were employed. COMPARISON: None FINDINGS: CHEST CT: There are spinal rods extending from T3-T9. There is a chronic burst there is consolidation of the glenna ng parenchyma of the right upper and bilateral lower lobes, consistent with pneumonia. No pneumothora x. No significant pleural or pericardial effusion. . Chronic fracture deformity of T6. Mild mediastin al lymph node enlargement, likely reactive. ABDOMEN/PELVIS CT: The liver, pancreas, adrenal glands and kidneys are unremarkable. There is splenomegaly. There is bri vation of the right diaphragm. No free air or free fluid. Gastric tube in expected position. There is fecal impaction of the rectum. IMPRESSION: 1. Patchy bilateral airspace disease, compatible with pneumonia. 2: Splenomegaly. Reviewed, dictated and finalized at location A.
--- NOTE | ~2022-07-03 | CT_ITS ---
EXAMINATION: CT brain wo con DATE: 07/03/2022 21:24 INDICATION: Fever. Recent instrumentation. TECHNIQUE: Computed tomography (CT) of the head was performed without intravenous contrast. The dose- length product was 605.33 mGy-cm. Automated exposure control and iterative reconstruction technique w ere employed. COMPARISON: CT dated 06/18/2022 FINDINGS: There is a large chronic left lacunar infarction of the subinsular white matter and lentifo rm nucleus. No acute hemorrhage, infarction, mass or mass effect. No ventriculomegaly or midline shif t. Basilar cisterns are patent. There is mild mucosal thickening of the paranasal sinuses. No depress ed skull fractures. IMPRESSION: 1. No acute intracranial abnormality. 2: Large chronic left lacunar infarction. Reviewed, dictated and finalized at location A.
--- NOTE | ~2022-07-03 | XR_ITS ---
MODIFIED ESOPHAGRAM HISTORY: Aspiration pneumonia TECHNIQUE: Modified barium esophagram was performed on 07/05/2022. I administered fluoroscopy and perf ormed the exam with speech pathologist. Patient was seated for lateral fluoroscopic imaging for nancy stion of thin liquids, pudding, solids and quantified amounts, followed by thin liquids in uncontroll ed amounts. This was recorded on tape. A single fluoroscopic spot image was also recorded. The DAP fo r this procedure was 3.2 Gycm2. The amount of fluoroscopy time used during this procedure was 4.8 min utes. FINDINGS: Oral stage: Adequate function. Pharyngeal stage: There is reduced laryngeal elevation and tongue base retraction. There is vallecula r residue and piriform sinus residue. Laryngeal penetration, potentially with small amount of aspirat ion with thin liquids which elicited a cough reflex. Cervical/esophageal stage: Adequate function. IMPRESSION: Pharyngeal dysphagia as detailed above including laryngeal penetration and potentially sm all amount of aspiration with thin liquids. Please correlate with speech pathologist findings and sp ecific feeding recommendations. Reviewed, dictated and finalized at location A. IMPRESSION: Pharyngeal dysphagia as detailed above including laryngeal penetrat ion and potentially small amount of aspiration with thin liquids. Please corre late with speech pathologist findings and specific feeding recommendations.
--- NOTE | 2022-07-03 18:16 | ECG_ITS ---
Measurements Intervals [place] Rate: 142 P: 52 MS: 153 QRS: -55 QRSD: 66 T: 55 QT: 259 QTc: 399 Interpretive Statements SINUS TACHYCARDIA, POSSIBLE ATRIAL FLUTTER MARKED LEFT AXIS DEVIATION [QRS AXIS < -30] LOW QRS VOLTAGE IN PRECORDIAL LEADS [QRS DEFLECTION < 1.0 mV IN CHEST LEADS] INCOMPLETE RIGHT BUNDLE BRANCH BLOCK NO PREVIOUS ECG AVAILABLE FOR COMPARISON Electronically Signed On 07-04-2022 15:41:23 CDT by Suman Lau M.D.
[2022-07-03 19:55] LABS: Basophils Percent Auto 0.1 % (0.2-1.2); Hematocrit 49.7 % (42.0-52.0); Hemoglobin 16.8 g/dL (14.0-18.0); Immature Granulocyte Absolute 0.03 K/mm3 (0.00-0.031); Immature Granulocyte Percent A 0.4 % (0-0.5); Lymphocytes Absolute Auto 0.53 K/mm3 (0.9-3.2); Lymphocytes Percent Auto 6.7 % (18.3-44.2); Mean Corpuscular HGB Conc 33.8 g/dl (32-36); Mean Corpuscular Hemoglobin 31.6 pg (26-34); Mean Corpuscular Volume 93.4 fl (80-100); Mean Platelet Volume 10.8 fl (7.4-10.4); Monocytes Absolute Auto 0.6 K/mm3 (0.1-0.6); Monocytes Percent Auto 8.1 % (2.6-8.5); Neutrophils Absolute Auto 6.7 K/mm3 (1.3-6.7); Neutrophils Percent Auto 84.7 % (45.5-73.1); Platelet Count Result 154 k/mm3 (150-375); Red Blood Count 5.32 M/mm3 (4.6-6.20); Red Cell Distribution Width 12.3 % (11.5-14.5); White Blood Count 7.9 K/mm3 (4.5-10.0)
[2022-07-03 20:11] LABS: Lactic Acid Reflex 1.3 mmol/L (0.7-2.0)
[2022-07-03 20:12] LABS: Alanine Aminotransferase 69 U/L (6-50); Albumin Level 5.1 g/dL (3.5-5.1); Alkaline Phosphatase 128 U/L (38-126); Anion Gap 9 mmol/L (8-16); Aspartate Amino Transferase 34 U/L (17-59); Bilirubin,Total 0.9 mg/dL (0.2-1.3); Blood Urea Nitrogen 15 mg/dL (9-20); Calcium 9.4 mg/dL (8.4-10.2); Carbon Dioxide 29 mmol/L (22-30); Chloride 97 mmol/L (98-107); Estimated CRCL calculation 144 ml/min; Estimated Glomerular Filt Rate > 60; Glucose 100 mg/dL (65-110); Potassium 4.2 mmol/L (3.4-5.0); Sodium 135 mmol/L (137-145)
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
[2022-07-03] MEDS: LACTATED RINGERS 1,000 ML 999 ML IV CONT ×2 (20:45→20:46)
[2022-07-03 21:18] LABS: Appearance Urine Clear (Clear); Bacteria Urine None Seen /hpf; Bilirubin Urine Negative (Negative); Blood Urine Negative (Negative); Color Urine Yellow (Yellow); Glucose Urine UA Negative (Negative); Ketones Urine Negative (Negative); Leukocyte Esterase Ur Negative LEU/UL (Negative); Nitrate Urine Negative (Negative); Non Pathogenic Casts 0-2; Protein Urine Trace mg/dL (Negative); RBC Urine 0-2 /hpf (0-2); Specific Grav Ur 1.021 (1.001-1.035); Squamous Epithelial Cell Urine None seen /hpf (Few); WBC Urine 0-5 /hpf; pH Urine 7.5 (5.0-9.0)
[2022-07-03 21:24] LABS: Add Urine Microscopic? YES
[2022-07-03 21:34] LABS: Influenza A QL RT-PCR Negative (Negative); Influenza B QL RT-PCR Negative (Negative); RSV RNA, RT-PCR Negative (Negative); SARS-CoV-2 RNA PCR Negative
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
[2022-07-03] MEDS: CEFEPIME 2 GM/NS 50 ML 2 GM/50 ML BAG IVPB (22:27)
[2022-07-04] VITALS (20 sets, daily range): BP systolic 98–130; BP diastolic 59–82; PULSE 81–127; RESP 16–18; TEMP 36.5–38.6; O2SAT 92–100; BMI 21.6
[2022-07-04 05:35] LABS: Estimated CRCL calculation 169 ml/min; Estimated Glomerular Filt Rate > 60
[2022-07-04] MEDS: SODIUM CHLORIDE 0.9% IV 1,000 ML 100 ML IV CONT (05:59)
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
[2022-07-04 08:29] LABS: CRP 5.8 mg/dL (<1.0)
[2022-07-04] MEDS: CEFEPIME 2 GM/NS 50 ML 2 GM/50 ML BAG IVPB ×3 (08:50→21:08)
[2022-07-04] MEDS: ACETAMINOPHEN ELIXIR 325 MG/10.15 ML UDC 650 MG FEED TUBE ×2 (08:54→16:44)
[2022-07-04 08:56] LABS: Procalcitonin 0.4 ng/mL
[2022-07-04] MEDS: metroNIDAZOLE 500 MG/ISO 100ML 500 MG/100 ML BAG 100 MG IVPB ×3 (09:39→21:07)
[2022-07-04] MEDS: ENOXAPARIN 40 MG/0.4 ML SYRINGE SUB-Q (09:40)
[2022-07-04] MEDS: FAMOTIDINE 20 MG TABLET FEED TUBE ×2 (09:40→21:08)
--- NOTE | 2022-07-04 11:54 | PC.NURSE ---
On 07/04/22, the student, [Shaila Mendez], provided care and completed [facility] documentation on this patient. I have reviewed the student's documentation and agree with the findings.
[2022-07-04] MEDS: HALOPERIDOL 0.5 MG TABLET 1.5 MG FEED TUBE (21:08)
[2022-07-05] VITALS (9 sets, daily range): BP systolic 95–118; BP diastolic 59–77; PULSE 59–108; RESP 16–18; TEMP 36.8–37.1; O2SAT 94–97; BMI 21.1
--- NOTE | 2022-07-05 | ECHO_ITS ---
Patient Info Name: Mitch Frias Age: 36 years : 1985 Gender: Male Ht: 71 in Wt: 154 lbs BSA: 1.87 m2 HR: 83 bpm BP: 95 / 59 mmHg Technical Quality: Good Exam Date: 07/05/2022 1:47 PM Exam Location: [facility] Pulmonary Patient Status: Inpatient Admit Date: 07/03/2022 Staff Ordering Physician: Alycia Diehl MD Regional Sales Engineer: Erich Springer, RDCS, RT Attending Provider: Alycia Diehl MD Referring Physician: Fazal MCCORMACK; Exam Type: CA echo doppler color flow Study Info Indications - Endocarditis Complete two-dimensional, color flow and Doppler transthoracic echocardiogram is performed. Strain analysis performed. Summary 1. Complete two-dimensional, color flow and Doppler transthoracic echocardiogram is performed. 2. Left ventricular chamber dimension is normal. 3. Left ventricular systolic function is normal, estimated at 60-65%. 4. The left ventricular diastolic function is normal. 5. E/e' 5 is not elevated. 6. Global longitudinal strain is mildly abnormal at -16.2%. 7. There is trace tricuspid valve regurgitation. Left Ventricle E/e' 5 is not elevated. Global longitudinal strain is mildly abnormal at -16.2%. Left ventricular chamber dimension is normal. Left ventricular systolic function is normal, estimated at 60-65%. The left ventricular diastolic function is normal. Right Ventricle Right ventricular chamber dimension is normal. Right ventricular systolic function is normal. Left Atria Left atrial chamber dimension is normal. Right Atria Right atrial chamber dimension is normal. Aortic Valve The aortic valve is trileaflet. There is no aortic valve stenosis. There is no aortic valve regurgitation. No aortic valve vegetation visualized. Pulmonic Valve There is no pulmonic regurgitation. No pulmonic valve vegetation visualized. Mitral Valve There is no mitral valve stenosis. There is no mitral valve regurgitation. No mitral valve vegetation visualized. Tricuspid Valve RVSP is not calculated due to an inadequate TR jet. There is trace tricuspid valve regurgitation. No tricuspid valve vegetation visualized. Pericardium/Pleural There is no pericardial effusion. Inferior Vena Cava Normal inferior vena cava with >50% collapse upon inspiration consistent with normal right atrial pressure, 5 mmHg. Aorta The aortic root size at the sinus of Valsalva is normal. Left Ventricular Outflow Tract Name Value Normal LVOT 2D LVOT Diameter 2.0 cm LVOT Doppler LVOT Peak Gradient 2 mmHg LVOT Mean Gradient 1 mmHg LVOT VTI 14 cm LVOT VTI/AV VTI Ratio 0.9 LVOT Stroke Volume 45 ml LVOT CO 3.7 l/min LVOT CI 2.0 l/min/m2 Mitral Valve Name Value Normal
[2022-07-05] MEDS: CEFEPIME 2 GM/NS 50 ML 2 GM/50 ML BAG IVPB ×3 (05:46→22:56)
[2022-07-05] MEDS: ACETAMINOPHEN ELIXIR 325 MG/10.15 ML UDC 650 MG FEED TUBE ×4 (05:47→23:30)
[2022-07-05] MEDS: metroNIDAZOLE 500 MG/ISO 100ML 500 MG/100 ML BAG 100 MG IVPB ×3 (05:47→22:56)
[2022-07-05 05:48] LABS: Basophils Percent Auto 0.2 % (0.2-1.2); Eosinophils Percent Auto 0.2 % (0-4.4); Hematocrit 41.1 % (42.0-52.0); Hemoglobin 13.9 g/dL (14.0-18.0); Immature Granulocyte Absolute 0.02 K/mm3 (0.00-0.031); Immature Granulocyte Percent A 0.4 % (0-0.5); Lymphocytes Absolute Auto 0.62 K/mm3 (0.9-3.2); Lymphocytes Percent Auto 12.8 % (18.3-44.2); Mean Corpuscular HGB Conc 33.8 g/dl (32-36); Mean Corpuscular Hemoglobin 31.7 pg (26-34); Mean Corpuscular Volume 93.6 fl (80-100); Mean Platelet Volume 10.8 fl (7.4-10.4); Monocytes Absolute Auto 0.5 K/mm3 (0.1-0.6); Monocytes Percent Auto 10.3 % (2.6-8.5); Neutrophils Absolute Auto 3.7 K/mm3 (1.3-6.7); Neutrophils Percent Auto 76.1 % (45.5-73.1); Platelet Count Result 148 k/mm3 (150-375); Red Blood Count 4.39 M/mm3 (4.6-6.20); Red Cell Distribution Width 12.1 % (11.5-14.5); White Blood Count 4.9 K/mm3 (4.5-10.0)
[2022-07-05 06:03] LABS: Alanine Aminotransferase 37 U/L (6-50); Albumin Level 3.8 g/dL (3.5-5.1); Alkaline Phosphatase 87 U/L (38-126); Anion Gap 6 mmol/L (8-16); Aspartate Amino Transferase 23 U/L (17-59); Bilirubin,Total 0.8 mg/dL (0.2-1.3); Blood Urea Nitrogen 14 mg/dL (9-20); Calcium 8.1 mg/dL (8.4-10.2); Carbon Dioxide 25 mmol/L (22-30); Chloride 101 mmol/L (98-107); Estimated CRCL calculation 169 ml/min; Estimated Glomerular Filt Rate > 60; Glucose 115 mg/dL (65-110); Magnesium 1.9 mg/dL (1.6-2.3); Potassium 4.1 mmol/L (3.4-5.0); Sodium 132 mmol/L (137-145)
[2022-07-05] MEDS: FAMOTIDINE 20 MG TABLET FEED TUBE ×2 (08:55→20:46)
[2022-07-05] MEDS: ENOXAPARIN 40 MG/0.4 ML SYRINGE SUB-Q (08:56)
[2022-07-05 10:26] LABS: Vancomycin Trough 7.7 ug/mL (10.0-20.0)
--- NOTE | 2022-07-05 10:49 | PC.NURSE ---
On 07/05/22, the student, [Roslyn Sabillon], provided care and completed [facility] documentation on this patient. I have reviewed the student's documentation and agree with the findings.
--- NOTE | 2022-07-05 14:24 | PCSTNOTE ---
Please refer to the Modified Barium Swallow Evaluation in the EMR.
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
[2022-07-05] MEDS: BACLOFEN 5 MG TABLET PO (17:50)
[2022-07-05] MEDS: HALOPERIDOL 0.5 MG TABLET 1.5 MG FEED TUBE (20:46)
[2022-07-06] VITALS: PULSE 89
[2022-07-06 04:00] VITALS: PULSE 76
[2022-07-06 06:00] VITALS: BP 107/60; PULSE 89; RESP 18; TEMP 36.8; O2SAT 96
[2022-07-06] MEDS: CEFEPIME 2 GM/NS 50 ML 2 GM/50 ML BAG IVPB (06:22)
[2022-07-06] MEDS: metroNIDAZOLE 500 MG/ISO 100ML 500 MG/100 ML BAG 100 MG IVPB (06:22)
[2022-07-06] MEDS: ACETAMINOPHEN ELIXIR 325 MG/10.15 ML UDC 650 MG FEED TUBE (06:23)
[2022-07-06 06:44] LABS: Basophils Percent Auto 0.6 % (0.2-1.2); Eosinophils Absolute Auto 0.1 K/mm3 (0-0.3); Eosinophils Percent Auto 3.8 % (0-4.4); Hematocrit 38.1 % (42.0-52.0); Hemoglobin 12.8 g/dL (14.0-18.0); Immature Granulocyte Absolute 0.01 K/mm3 (0.00-0.031); Immature Granulocyte Percent A 0.3 % (0-0.5); Lymphocytes Absolute Auto 0.93 K/mm3 (0.9-3.2); Mean Corpuscular HGB Conc 33.6 g/dl (32-36); Mean Corpuscular Volume 92.3 fl (80-100); Mean Platelet Volume 10.6 fl (7.4-10.4); Monocytes Absolute Auto 0.4 K/mm3 (0.1-0.6); Monocytes Percent Auto 10.7 % (2.6-8.5); Neutrophils Percent Auto 57.6 % (45.5-73.1); Platelet Count Result 137 k/mm3 (150-375); Red Blood Count 4.13 M/mm3 (4.6-6.20); Red Cell Distribution Width 12.2 % (11.5-14.5); White Blood Count 3.5 K/mm3 (4.5-10.0)
[2022-07-06 06:58] LABS: Alanine Aminotransferase 29 U/L (6-50); Albumin Level 3.5 g/dL (3.5-5.1); Alkaline Phosphatase 71 U/L (38-126); Anion Gap 5 mmol/L (8-16); Aspartate Amino Transferase 20 U/L (17-59); Bilirubin,Total 0.4 mg/dL (0.2-1.3); Blood Urea Nitrogen 14 mg/dL (9-20); Carbon Dioxide 26 mmol/L (22-30); Chloride 105 mmol/L (98-107); Estimated CRCL calculation 168 ml/min; Estimated Glomerular Filt Rate > 60; Glucose 145 mg/dL (65-110); Potassium 3.8 mmol/L (3.4-5.0); Sodium 136 mmol/L (137-145)
[2022-07-06 08:00] VITALS: PULSE 79
[2022-07-06] MEDS: ENOXAPARIN 40 MG/0.4 ML SYRINGE SUB-Q (08:39)
[2022-07-06] MEDS: polyethylene glycoL 3350 17 GM POWD.PACK PO (08:39)
[2022-07-06] MEDS: ASPIRIN 81 MG CHEWABLE TABLET PO (08:40)
[2022-07-06] MEDS: FAMOTIDINE 20 MG TABLET FEED TUBE (08:40)
[2022-07-06] MEDS: BACLOFEN 5 MG TABLET PO ×2 (08:40→16:34)
--- NOTE | 2022-07-06 11:41 | PCNFU ---
Nutrition Follow-Up Complete: Altered GI function as related to possible aspiration pneumonia as evidenced by NPO. goal: Meet estimated nutritional needs. Patient is progressing towards goal. We will continue current goal. Pt current nutrition is Minced and Moist Level 5 with Moderately Thick liquids, Level 2 with nocturnal tube feedings of Jevity 1.5 at 110 ml/hr from 2000 hrs to 0400 hrs. Last recorded weight is 69.6 kg up from 68.7 kg on admit. Bowel Motility:No Bm reported. Labs Reviewed:Glu 145, Na 136 Meds Noted:Pepcid, Lovenox,Miralax, Suppository Skin: WNL Additional Notes: Patient is tolerating > 75% of oral diet. Tube feedings also being tolerating of Jevity 1.5 at 110 ml/hr for 8 hours which are providing an additional 1320 kcals/56 gms protein/669 ml water. Tube feeding meeting 67% kcal needs and 81% protein needs. Flush ordered for 30 ml water q 4 hours. Agree with diet orders. Will monitor skin,weight, labs, tube feeding tolerance every Saturday and Saturday.
[2022-07-06] MEDS: AMOXICILLIN/CLAVULANATE K 875-125 MG TAB 1 TABLET FEED TUBE (12:02)
[2022-07-06] MEDS: TIZANIDINE HCL 4 MG TABLET PO (12:59)
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
[2022-07-06 14:00] VITALS: BP 99/62; PULSE 89; RESP 18; TEMP 36.6; O2SAT 98
[2022-07-06 14:52] VITALS: O2SAT 98
[2022-07-06 14:52] LABS: EDCOVIDSCREEN Negative (Negative)
== END 2022-07-06 17:45 ==
LOC: ANHED 19:55 → ANH2MED 07-04 00:36
PROVIDERS: Emergency Medicine; Nurse Practitioner Family; Admitting Provider Internal Medicine; Emergency Provider Emergency Medicine; PCP Hospitalist; Visit Provider Internal Medicine
DX: A41.9 Sepsis, unspecified organism (principal); J69.0 Pneumonitis due to inhalation of food and vomit; G81.91 Hemiplegia, unspecified affecting right dominant side; S06.9XAS Unspecified intracranial injury with loss of consciousness status unknown, sequela; V89.2XXS Person injured in unspecified motor-vehicle accident, traffic, sequela; R94.31 Abnormal electrocardiogram [ECG] [EKG]; R50.9 Fever, unspecified; F41.9 Anxiety disorder, unspecified; M62.421 Contracture of muscle, right upper arm; M62.461 Contracture of muscle, right lower leg; Z93.1 Gastrostomy status; Z20.822 Contact with and (suspected) exposure to COVID-19; R13.19 Other dysphagia; F17.210 Nicotine dependence, cigarettes, uncomplicated; F10.90 Alcohol use, unspecified, uncomplicated; I45.10 Unspecified right bundle-branch block; R00.0 Tachycardia, unspecified; I44.4 Left anterior fascicular block; R91.8 Other nonspecific abnormal finding of lung field; R16.1 Splenomegaly, not elsewhere classified; Z79.51 Long term (current) use of inhaled steroids; Z79.899 Other long term (current) drug therapy; Z84.89 Family history of other specified conditions
CPT/HCPCS: 36415; 70450; 70490; 71046; 71260; 74177; 80053; 80202; 81001; 82565; 83605; 83735; 84145; 84443; 85025; 86140; 87040; 87077; 87081; 87181; 87186; 87426; 87637; 92507; 92610; 92611; 93005; 93306; 94667; 94668; 96365; 96366; 96367; 96368; 96372; 96375; 97161; 97165; 97530; 97535; 99285; A9270; C9803; G0378; G0379; J0131; J0692; J1650; J3370; J7030; J7120; Q9967

== ENCOUNTER 2023-04-16 14:47 | Emergency (ER) | payer BC, SELFPAY ==
[2023-04-16 15:14] VITALS: BP 141/97; PULSE 121; RESP 18; TEMP 36.4; O2SAT 97
--- NOTE | 2023-04-16 15:55 | ED.URI ---
HPI - URI/Sore Throat General Chief Complaint: Upper Respiratory Infection Stated Complaint: sorethroat History of Present Illness HPI Narrative: 37-year-old male history of TBI presented for complaint of right sided sore throat, onset last night. Also reports decreased appetite today. Denies any associated symptoms. Related Data Home Medications Medication Instructions Recorded Confirmed aspirin 81 mg chewable tablet 81 mg PO DAILY 07/04/22 04/16/23 baclofen 5 mg tablet 10 mg PO TID 07/04/22 04/16/23 albuterol sulfate 90 mcg/actuation 2 puff inhalation PRN PRN 04/16/23 04/16/23 aerosol inhaler Shortness Of Breath Or Wheezing desipramine 25 mg tablet 100 mg PO HS 04/16/23 04/16/23 docusate sodium 100 mg capsule 100 mg PO BID 04/16/23 04/16/23 gabapentin 300 mg capsule 300 mg PO TID 04/16/23 04/16/23 haloperidol 1 mg tablet 1 mg PO DAILY 04/16/23 04/16/23 pantoprazole 40 mg tablet,delayed 40 mg PO BID 04/16/23 04/16/23 release Allergies Allergy/AdvReac Type Severity Reaction Status Date / Time No Known Allergies Allergy Unknown Verified 04/16/23 15:34 Review of Systems Review of Systems: CONSTITUTIONAL: Denies body aches, fever, chills, or sweats. EYES: Denies visual changes, redness, or discharge. ENT: reports throat pain Denies rhinorrhea, congestion, or otalgia. CARDIOVASCULAR: Denies chest pain, palpitations, or edema. RESPIRATORY: Denies dyspnea. GASTROINTESTINAL: Denies abdominal pain, nausea, vomiting, or diarrhea. SKIN: Denies rash, itching, or wounds. MUSCULOSKELETAL: Denies back pain, joint pain, or myalgia. NEUROLOGIC: Denies headache PMFSH Past Medical History Medical History Anxiety Head ache Patient denies significant medical history Stroke Left lacunar infarction 2021 Substance abuse Methamphetamines TBI (traumatic brain injury) Tobacco abuse Surgical History Surgical History History of fundoplication History of tracheostomy Removed 01/2022 Family History Family History Father Hypertension Anxiety Mother Anxiety Social History Social History Smoking packs per day: 1 Smoking cigarettes per day: 20.0 Smoking status: Current every day smoker Tobacco type: cigarettes Alcohol intake: current Alcohol use details: soical Substance use: never Substance use type: does not use Lack of Transportation: No Lack of Food: Never True Current Housing: I Have Housing Concerned About Future Housing: No Difficulty Paying Gas/Electric Bills: No Difficulty Paying for Meds: No Currently Unemployed: No Education: High School Diploma/GED Difficulty w/ Childcare or Family Care: No Spiritual care concerns: No Exam Narrative: GENERAL: well-appearing, no acute distress. Sitting in w/c. EYES: conjunctivae clear ENT: Mucous membranes moist. TM pearly fernandez with normal light reflex bilaterally; no tragal tenderness. Oropharynx erythematous Tonsils enlarged 2+ with exudate. No drooling, no hoarseness, no trismus, uvula midline. No tripod positioning, hot potato voice, or soft palate swelling. NECK: Supple. No lymphadenopathy CHEST: Clear to auscultation, breath sounds equal. No respiratory distress, speaks in full sentences. HEART: Regular rate and rhythm. No murmur heard. SKIN: Warm, dry, no rash. NEURO: Alert and oriented x3. Course Course Emergency Course: Patient is aware of diagnosis, understands and agrees to treatment plan. Anticipatory guidance given. Patient agrees to follow-up as directed and is aware of reasons to seek care at the emergency department. Portions of this record may have been created with voice recognition software Level of Care: Express Care Visit Vital Signs Vital signs: Vital Signs Te
== END 2023-04-16 16:11 | disposition home or self-care (01) ==
PROVIDERS: Emergency Provider Nurse Practitioner Family; PCP Family Medicine
DX: J02.9 Acute pharyngitis, unspecified (principal); F17.210 Nicotine dependence, cigarettes, uncomplicated; Z86.73 Personal history of transient ischemic attack (TIA), and cerebral infarction without residual deficits; Z79.82 Long term (current) use of aspirin
CPT/HCPCS: 87081; 87880; 99213; G0463

== ENCOUNTER 2023-09-29 22:54 | Emergency (ER) | payer OTHER, SELFPAY ==
--- NOTE | ~2023-09-29 | XR_ITS ---
Portable chest x-ray Comparison: 07/03/2022 Clinical History: Aspiration Findings: Stable elevation right hemidiaphragm. Lungs are clear, without focal consolidation or pleu ral effusion. Cardiomediastinal silhouette is stable. Extensive thoracic spinal fixation hardware is unchanged. Impression: Clear lungs. Stable elevation of right hemidiaphragm. Stable extensive thoracic spinal fixation hardware. Reviewed, dictated and finalized at location . Impression: Clear lungs. Stable elevation of right hemidiaphragm. Stable extensive thoracic spinal fixation hardware.
[2023-09-29 23:10] VITALS: BP 147/108; PULSE 88; RESP 20; TEMP 36.1; O2SAT 95
[2023-09-30 00:58] VITALS: PULSE 74; RESP 18; O2SAT 94
--- NOTE | 2023-09-30 02:19 | ED.GENADULT ---
HPI - General Adult General Chief complaint: Unspecified Stated complaint: took home meds, aspiration? Time Seen by Provider: 09/30/23 01:38 History of Present Illness HPI narrative: 38-year-old male presents emergency department for evaluation for possible aspiration. Patient states he was taking his nighttime medications when he coughed and gagged. Mother states that the patient did have some emesis after taking the meds. Patient was then complaining of some shortness of breath. Patient does have a history of aspiration pneumonia when he was nursing wounds of follow-up was concerned and did want this to evolve into something worse. Upon arrival emergency department patient states that his symptoms have improved. Patient states he has some soreness of his upper throat but denies any chest pain or abdominal pain. Patient is in no distress at time of evaluation. Related Data Home Medications Medication Instructions Recorded Confirmed aspirin 81 mg chewable tablet 81 mg PO DAILY 07/04/22 04/16/23 baclofen 5 mg tablet 10 mg PO TID 07/04/22 04/16/23 albuterol sulfate 90 mcg/actuation 2 puff inhalation PRN PRN 04/16/23 04/16/23 aerosol inhaler Shortness Of Breath Or Wheezing desipramine 25 mg tablet 100 mg PO HS 04/16/23 04/16/23 docusate sodium 100 mg capsule 100 mg PO BID 04/16/23 04/16/23 gabapentin 300 mg capsule 300 mg PO TID 04/16/23 04/16/23 haloperidol 1 mg tablet 1 mg PO DAILY 04/16/23 04/16/23 pantoprazole 40 mg tablet,delayed 40 mg PO BID 04/16/23 04/16/23 release Allergies Allergy/AdvReac Type Severity Reaction Status Date / Time No Known Allergies Allergy Unknown Verified 09/29/23 23:13 Review of Systems Review of Systems: All systems reviewed & are unremarkable except as noted in HPI and below PMFSH Past Medical History Medical History Anxiety Head ache Patient denies significant medical history Stroke Left lacunar infarction 2021 Substance abuse Methamphetamines TBI (traumatic brain injury) Tobacco abuse Surgical History Surgical History History of fundoplication History of tracheostomy Removed 01/2022 Family History Family History Father Hypertension Anxiety Mother Anxiety Social History Social History Smoking packs per day: 1 Smoking cigarettes per day: 20.0 Smoking status: Current every day smoker Tobacco type: cigarettes Alcohol intake: current Alcohol use details: soical Substance use: never Substance use type: does not use Lack of Transportation: No Lack of Food: Never True Current Housing: I Have Housing Concerned About Future Housing: No Difficulty Paying Gas/Electric Bills: No Difficulty Paying for Meds: No Currently Unemployed: No Education: High School Diploma/GED Difficulty w/ Childcare or Family Care: No Spiritual care concerns: No Exam Narrative: APPEARANCE: Well appearing, no pain, no distress, well-nourished. HEAD: normocephalic, atraumatic. EYES: PERRLA/EOMI, conjunctivae clear. NOSE: Normal no drainage EARS:TMS clear with good light reflex. THROAT: Pharynx clear, no exudate. NECK: Supple. No adenopathy, no masses. RESPIRATORY: Airway patent, respirations nonlabored. Clear to auscultation bilaterally, no rales, rhonchi, wheezing. CARDIOVASCULAR: Regular rate and rhythm without murmurs rubs or gallops. ABDOMINAL: Soft, nontender, nondistended, normal bowel sounds MUSCULOSKELETAL: Moves all extremities. Strength/ROM intact, No edema, No calf tenderness. NEURO: Alert. Cranial nerves II through XII intact. Grossly intact SKIN: Warm, dry. Normal Color Course Course Emergency Course: Patient felt improved compared to arrival. Patient and family are comfortable plan for discharge and close follow.
== END 2023-09-30 02:30 | disposition home or self-care (01) ==
PROVIDERS: Emergency Provider Emergency Medicine; PCP Family Medicine
DX: T17.998A Other foreign object in respiratory tract, part unspecified causing other injury, initial encounter (principal); F41.9 Anxiety disorder, unspecified; F17.210 Nicotine dependence, cigarettes, uncomplicated; Z87.820 Personal history of traumatic brain injury; Z79.82 Long term (current) use of aspirin; Z79.899 Other long term (current) drug therapy
CPT/HCPCS: 71045; 99283

== ENCOUNTER 2024-07-21 09:04 | Emergency (ER) | payer OTHER, SELFPAY ==
[2024-07-21 09:06] VITALS: BP 147/103; PULSE 66; RESP 17; TEMP 36.6; O2SAT 96
--- OUTSIDE RECORDS SUMMARY | 2024-07-21 09:29 | XMS_ITS | Clinical Summary ---
Author Organization [facility] Address [address] [place] [address] Care Team Providers Care Inspector Final Assembly Mechanical Name Role Phone Ran Thacker MD Primary Care Provider [phone] Korey Matute MD Unavailable [phone] Fernando Camarillo MD Unavailable Allergies No known active allergies Medications polyethylene glycol (GLYCOLAX) 17 GM/SCOOP Powder take BY MOUTH DAILY NEEDED FOR CONSTIPATION DIRECTED. DISSOLVE 17 GRAMS (ONE CAPFUL/PACKET) IN 8 OZ OF WATER, JUICE, SODA, COFFEE OR TEA AND DRINK DAILY DIRECTED. 023 Active Aspirin Low Dose 81 MG Chewable Tablet Take 81 mg by mouth daily. 023 Active botulinum Toxin Type A (Botox) 100 units Recon Soln 100 Units by Intramuscular route. 024 Active pantoprazole (PROTONIX) 40 MG Tablet Delayed Response Take 1 Tablet by mouth daily. 90 Tablet 3 024 Active oxyCODONE-Aceta minophen (PERCOCET) 10-325 MG TabletIndicatio ns:History of back surgery,Chronic bilateral thoracic back pain Take 1 Tablet by mouth 2 times daily as needed for Severe pain. 60 Tablet 025 Active gabapentin (NEURONTIN) 300 MG Capsule TAKE 1 CAPSULE BY MOUTH EVERY 8 HOURS 90 Capsule 2 025 Active metoprolol Succinate (TOPROL-XL) 25 MG TABLET SR 24 HRIndications:P rimary hypertension Take 1 Tablet by mouth daily. 90 Tablet 3 025 Active temazepam (RESTORIL) 30 MG CapsuleIndicati ons:Insomnia, unspecified type Take 1 Capsule by mouth nightly as needed for Sleep. 30 Capsule 025 Active docusate sodium (COLACE) 100 MG CapsuleIndicati ons:Constipatio n, unspecified constipation type Take 1 Capsule by mouth 2 times daily. 180 Capsule 1 025 Active baclofen (LIORESAL) 10 MG TabletIndicatio ns:Chronic pain syndrome Take 1 Tablet by mouth 3 times daily. 90 Tablet 1 025 Active metoprolol Succinate (TOPROL-XL) 25 MG TABLET SR 24 HRIndications:P rimary hypertension Take 1 Tablet by mouth daily. 90 Tablet 3 024 2024 Discontinued(R eorder) docusate sodium (COLACE) 100 MG CapsuleIndicati ons:Constipatio n, unspecified constipation type Take 1 Capsule by mouth 2 times daily. 180 Capsule 1 024 2024 Discontinued(R eorder) gabapentin (NEURONTIN) 300 MG Capsule TAKE 1 CAPSULE BY MOUTH EVERY 8 HOURS 90 Capsule 2 025 2024 Discontinued baclofen (LIORESAL) 10 MG TabletIndicatio ns:Chronic pain syndrome Take 1 Tablet by mouth 3 times daily. 90 Tablet 1 025 2024 Discontinued(R eorder) temazepam (RESTORIL) 30 MG CapsuleIndicati ons:Insomnia, unspecified type Take 1 Capsule by mouth nightly as needed for Sleep. 30 Capsule 025 2024 Discontinued(R eorder) Active Problems Problem Noted Date Diagnosed Date Memory loss 05/11/2024 Gastroesophageal reflux disease 05/11/2024 Bleeding hemorrhoids 01/08/2024 Psoriasis 10/10/2023 Chronic pain syndrome 07/11/2023 Tachycardia 07/11/2023 Primary hypertension 07/11/2023 Chronic bilateral thoracic back pain 07/05/2023 Overweight (BMI 25.0-29.9) 04/04/2023 Constipation 04/04/2023 Insomnia 04/04/2023 Hyperlipidemia 01/27/2023 B12 deficiency 01/27/2023 Vitamin D deficiency 01/27/2023 Polycythemia 01/27/2023 History of traumatic brain injury 12/27/2022 History of back surgery 12/27/2022 Impacted cerumen of left ear 12/27/2022 Impaired mobility and ADLs 12/27/2022 Hyperglycemia 12/27/2022 Encounters Date Type Department Care Team Description 07/16/2024 10:45 AM CDT Physical Therapy [facility] [address] [place] [address] William Harrison MD Bogowith, Kelly A, PT History of traumatic brain injury (Primary Dx); Gait difficulty; Contracture of muscle of multiple sites Discharge Disposition: Discharged to home or Selfcare 07/16/2024 Travel 07/09/2024 11:30 AM CDT Physical Therapy [facility] [address] [address] William Harrison MD Bogowith, Kelly A, PT History of traumatic brain injury (Primary Dx); Gait difficulty; Contracture of muscle of multiple sites Discharge Disposition: Discharged to home or Selfcare 07/09/2024 [facility] [address] [place] [address] Ran Thacker MD Medication Renewal Reviewed 07/09/2024 Travel 07/03/2024 [facility] [place] [address] Ran Thacker MD Medication Renewal Reviewed 06/27/2024 MyChart RX Renewal [facility] [address] [place] [address] Ran Thacker MD Medication Renewal Reviewed 06/25/2024 11:30 AM CDT Physical Therapy [facility] at [address] [place] [address] William Hrarison MD Kutchma, Joshua J, PT Gait difficulty (Primary Dx); Contracture of muscle of multiple sites; History of traumatic brain injury Discharge Disposition: Discharged to home or Selfcare 06/25/2024 Travel 06/22/2024 [facility] [place] [address] Ran Thacker MD Medication Refill 06/18/2024 11:30 AM CDT Physical Therapy [facility] at [address] [place] [address] William Harrison MD Bogowith, Kelly A, PT History of traumatic brain injury (Primary Dx); Gait difficulty; Contracture of muscle of multiple sites Discharge Disposition: Discharged to home or Selfcare 06/18/2024 Travel 06/11/2024 MyChart RX Renewal [facility] [address] [place] [address] Ran Thacker MD Medication Renewal Declined 06/10/2024 2:00 PM CDT Physical Therapy [facility] at [address] [address] William Harrison MD Bogowith, Kelly A, PT History of traumatic brain injury (Primary Dx); Gait difficulty Discharge Disposition: Discharged to home or Selfcare 06/10/2024 Travel 06/01/2024 2:00 PM CDT Clinical Support [facility] [address] [place] [address] Donna Michel PAC B12 deficiency; Polycythemia Discharge Disposition: Discharged to home or Selfcare 06/01/2024 Travel 05/31/2024 MyChart RX Renewal [facility] [address] [place] [address] Ran Thacker MD Medication Renewal Reviewed 05/27/2024 10:45 AM CDT Physical Therapy [facility] [address] [place] [address] William Harrison MD Bogowith, Kelly A, PT History of traumatic brain injury (Primary Dx); Gait difficulty; Contracture of muscle of multiple sites Discharge Disposition: Discharged to home or Selfcare 05/27/2024 Plan of Care Documentation [facility] at [address] [place] [address] 05/27/2024 Travel 05/18/2024 11:00 AM EMISSIONS TESTING TECHNICIAN Occupational Therapy [facility] at [address] [place] [address] William Harrison MD Embick, Alyssa, [place] Discharge Disposition: Discharged to home or Selfcare 05/18/2024 Travel 05/11/2024 10:00 AM EMISSIONS TESTING TECHNICIAN [facility] [address] [place] [address] Ran Thacker MD Memory loss (Primary Dx); Chronic pain syndrome; History of traumatic brain injury; Gastroesophageal reflux disease, unspecified whether esophagitis present Discharge Disposition: Discharged to home or Selfcare 05/11/2024 [facility]phone [facility] [place] [address] Ran Thacker MD 05/11/2024 Travel 05/07/2024 8:30 AM EMISSIONS TESTING TECHNICIAN Physical Therapy [facility] [address] [place] [address] William Harrison MD Bogowith, Kelly A, PT History of traumatic brain injury (Primary Dx); Gait difficulty; Contracture of muscle of multiple sites Discharge Disposition: Discharged to home or Selfcare 05/07/2024 7:45 AM EMISSIONS TESTING TECHNICIAN Occupational Therapy [facility] [address] [place] [address] William Harrison MD Embick, Alyssa, OT History of traumatic brain injury (Primary Dx) Discharge Disposition: Discharged to home or Selfcare 05/07/2024 Travel 05/01/2024 MyChart RX Renewal [facility] [address] [place] [address] Ran Thacker MD Medication Renewal Reviewed 04/30/2024 8:30 AM EMISSIONS TESTING TECHNICIAN Physical Therapy [facility] [address] [place] [address] William Harrison MD Bogowith, Kelly A, PT History of traumatic brain injury (Primary Dx); Gait difficulty; Contracture of muscle of multiple sites Discharge Disposition: Discharged to home or Selfcare 04/30/2024 Travel 04/23/2024 8:30 AM EMISSIONS TESTING TECHNICIAN Physical Therapy [facility] [address] [place] [address] William Harrison MD Bogowith, Kelly A, PT History of traumatic brain injury (Primary Dx); Gait difficulty; Contracture of muscle of multiple sites Discharge Disposition: Discharged to home or Selfcare 04/23/2024 Travel from Last 3 Months Immunizations Immunization Administration Dates Next Due COVID-19, MRNA, LNP-S, BIVAL ENT , PFIZER, 30 MCG/0.3 ML (12+ Y/O) 07/25/2022 COVID-19, Mrna, Lnp-s, Pf, 50 mcg/0.5 mL 023 Covid-19, Mrna, Lnp-s, Pf, 1 00 Mcg Or 50 Mcg Dose (MODERNA) 03/31/2021,10/12/2020,09/14/2020 Covid-19, Mrna, Lnp-s, Pf, 3 0 Mcg/0.3 Ml Dose, Neftali-sucrose (Pfizer masters top) 06/13/2022 Influenza Vaccine greater than 3 yrs 11/21/2023 Influenza Vaccine, Quadrivalent, PF 12/27/2022 Influenza,Split Virus,Trivalent,Injectable,PF 11/21/2023 TDAP Vaccine 11/06/2021,09/18/2020,10/07/2015 Family History Medical History Relation Name Comments No Known Problems Brother 1 No Known Problems Brother 2 No Known Problems Daughter Hypertension Father Yash Frias Sr Control led blood pressure Other-comment Father Yash Frias Sr bladde r issues Heart Disease Maternal Grandfather Rheumatoid Arthritis Mother Sinai Frias Takes arthritis medicine weekly No Known Problems Son 1 No Known Problems Son 2 Relation Name Status Comments Brother 1 Alive Brother 2 Alive Daughter Alive Father Yash Frias Sr Alive Maternal Grandfather Mother Sinai Frias Alive Son 1 Alive Son 2 Alive Social History Tobacco Use Types Packs/Day Years Used Date Smoking Tobacco: Former Cigarettes 1 17 2 005 - 2021 Smokeless Tobacco: Never Tobacco Cessation:Counseling Given: Yes Alcohol Use Standard Drinks/Week Comments Not Currently 0 (1 standard drink = 0.6 oz pur e alcohol) [facility] [employer] Answer Date Recorded In the past 12 months has [employer] gas, oil, or water [employer] threatened to shut off services in your home? No 01/08/2024 Social Connection and Isolat ion Panel [NHANES] Answer Date Recorded In a typical week, how many times do you talk on the phone with family, friends, or neighbors? More than three times a week 01/08/2024 How often do you get togethe r with friends or relatives? Once a week 01/08/2024 How often do you attend chur or sikh services? Patient declined 01/08/2024 Do you belong to any clubs o r organizations such as synagogue groups, unions, fraternal or athletic groups, or school groups? Patient declined 01/08/2024 How often do you attend meet ings of the clubs or organizations you belong to? Never 01/08/2024 Are you , , di vorced, , never , or living with a partner? 01/08/2024 AUDIT-C Answer Date Recorded Q1: How often do you have a drink containing alc ohol? Monthly or less 01/08/2024 Q2: How many drinks containi ng alcohol do you have on a typical day when you are drinking? 1 or 2 01/08/2024 Q3: How often do you have si x or more drinks on one occasion? Never 01/08/2024 Overall Financial Resource Strain (CARDIA) Answe r Date Recorded How hard is it for you to pa y for the very basics like food, housing, medical care, and heating? Somewhat hard 01/08/2024 PHQ-2 Answer Date Recorded Total Score - Questions 1-9 0 04/19 [facility] Occupat ional [facility] - Occupational Stress Questionnaire Answer Date Recorded Do you feel stress - tense, restless, nervous, or anxious, or unable to sleep at night because your mind is troubled all the time - these days? To some extent 01/08/2024 Exercise Vital Sign Answer Date Recorde d On average, how many days pe r week do you engage in moderate to strenuous exercise (like a brisk walk)? 7 days On average, how many minutes do you engage in exercise at this level? Patient declined 01/08/2024 Hunger Vital Sign Answer Date Recorded Within the past 12 months, y ou worried that your food would run out before you got the money to buy more. Never true 01/08/20 24 Within the past 12 months, t he food you bought just didn't last and you didn't have money to get more. Never true 01/08/2024 PRAPARE - Transportation Answer Date Re corded In the past 12 months, has l ack of transportation kept you from medical appointments or from getting medications? No 12/17 In the past 12 months, has l ack of transportation kept you from meetings, work, or from getting things needed for daily living? No 01/08/2024 Housing Stability Vital Sign Answer Mookie e Recorded In the last 12 months, was t here a time when you were not able to pay the mortgage or rent on time? No 04/03/2023 In the last 12 months, how many places have you lived? 1 04/03/2023 In the last 12 months, was t here a time when you did not have a steady place to sleep or slept in a mcc (including now)? No 04/03/2023 Housing Stability Vital Sign Answer Mookie e Recorded In the last 12 months, was t here a time when you were not able to pay the mortgage or rent on time? No 01/08/2024 In the past 12 months, how m any times have you moved where you were living? 0 01/08/2024 At any time in the past 12 m ont, were you homeless or living in a mcc (including now)? No 01/08/2024 Sexually Active Control Partners Comments Not Currently Female Sex and Gender Information Value Date Recorded Sex Assigned at Not on file Legal Sex Male 10:13 AM CDT Gender Identity Not on file Sexual Orientation Not on file Last Filed Vital Signs Vital Sign Reading Time Taken Comments Blood Pressure 120/80 05/11/2024 9:42 AM EMISSIONS TESTING TECHNICIAN Pulse 55 05/11/2024 9:42 AM EMISSIONS TESTING TECHNICIAN Temperature 36.3 C (97.3 F) 05/11/2024 9:42 AM EMISSIONS TESTING TECHNICIAN Respiratory Rate 16 03/03/2024 9:28 AM EMISSIONS TESTING TECHNICIAN Oxygen Saturation 94% 05/11/2024 9:42 AM EMISSIONS TESTING TECHNICIAN Inhaled Oxygen Concentration - - Weight 99.8 kg (220 lb) 05/11/2024 9:42 AM EMISSIONS TESTING TECHNICIAN Height 180.3 cm (5' 11 ) 05/11/2024 9:42 AM EMISSIONS TESTING TECHNICIAN Body Mass Index 30.68 05/11/2024 9:42 AM EMISSIONS TESTING TECHNICIAN Plan of Treatment Upcoming Encounters Date Type Department Care Team (Late st Contact Info) Description 07/23/2024 2:45 PM CDT Physical Therapy [facility] [address] [address] William Harrison MD [address] [facility] [facility] [address] [place] [address] Evie Arechiga, PT [place] Discharge Disposition: Discharged to home or Selfcare 09/03/2024 8:30 AM CDT Lab [facility] [address] [place] [address] MichelDonna August, PAC [address] [place] [address] Discharge Disposition: Discharged to home or Selfcare 09/03/2024 9:40 AM CDT [facility] [address] [place] [address] MichelDonna August, PAC [address] [place] [address] Renan Hernandez MD [address] [place] [address] Discharge Disposition: Discharged to home or Selfcare 09/03/2024 10:30 AM CDT Clinical Support [facility] [address] [place] [address] MichelJennyfere August, PAC [address] [place] [address] Discharge Disposition: Discharged to home or Selfcare 09/14/2024 10:45 AM CDT Office Visit [facility] [address] [place] [address] [facility] [address] [facility] [address] [address] Health Maintenance Due Date Last Done Comments Hepatitis C Virus (HCV) Screening 1985 Hepatitis B Immunization (1 of 3 - 19+ 3-dose series) 2004 Td Immunization Every 10 Years (Adults With 1 Tdap) 11/07/2031 11/06/2021, 09/18/2020, 10/07/2015 Respiratory Syncytial Virus (RSV) Immunization (Adult) (1 - 1-dose 75+ series) 2060 DTaP/Tdap/Td Immunization Discontinued 2021, 09/18/2020, 10/07/2015 Influenza Immunization Completed 4, 11/21/2023, 12/27/2022 SARS-COV-2 Immunization Completed 11/21/19 24, 01/28/2023, 07/25/2022, Additional history exists Human Papillomavirus (HPV) Immunization Aged Out No longer eligible based on patient's age to complete this topic Meningococcal Immunization (ACWY) Aged Out No longer eligible based on patient's age to complete this topic Pneumococcal Immunization Combined Aged Out No longer eligible based on patient's age to complete this topic Rotavirus Immunization Aged Out No lo nger eligible based on patient's age to complete this topic Procedures Procedure Name Priority Date/Time Associated Diagnosis Comments CBC WITH AUTO DIFFERENTIAL Routine 06/01/2024 1:10 PM CDT Polycythemia COMPLETE BLOOD COUNT (CBC) WITH DIFF Routine 06/01/2024 1:10 PM CDT Polycythemia VITAMIN B12 Routine 06/01/2024 1:10 PM CDT B12 deficiency URINE DRUG SCREEN Today 05/11/2024 Chronic pain syndrome from Last 3 Months Results * CBC WITH AUTO DIFFERENTIAL (06/01/2024 1:10 PM CDT) WBC 7.49 4.00 - 12.00 10(3)/mcL 06/01/2024 1:20 PM CDT [facility] RBC 5.18 4.40 - 5.80 10(6)/mcL 06/01/2024 1:20 PM CDT [facility] HEMOGLOBIN (HGB) 15.4 13.0 - 16.5 g/dL 06/01/2024 1:20 PM CDT [facility] HEMATOCRIT (HCT) 47.0 38.0 - 50.0 % 06/01/2024 1:20 PM CDT [facility] MCV 90.7 82.0 - 96.0 fL 06/01/2024 1:20 PM CDT [facility] MCH 29.7 26.0 - 32.0 pg 06/01/2024 1:20 PM CDT [facility] MCHC 32.8 31.0 - 36.0 g/dL 06/01/2024 1:20 PM CDT [facility] PLATELET COUNT 144 140 - 440 10(3)/mcL 06/01/2024 1:20 PM CDT [facility] RDW 12.8 11.8 - 15.5 % 06/01/2024 1:20 PM CDT [facility] MPV 11.5 8.0 - 12.6 fL 06/01/2024 1:20 PM CDT [facility] NEUTROPHILS 65.3 40.0 - 68.0 % 06/01/2024 1:20 PM CDT [facility] LYMPHOCYTES 22.3 19.0 - 49.0 % 06/01/2024 1:20 PM CDT [facility] MONOCYTES 8.5 3.0 - 13.0 % 06/01/2024 1:20 PM CDT [facility] EOSINOPHILS 3.5 0.0 - 8.0 % 06/01/2024 1:20 PM CDT [facility] BASOPHILS 0.4 0.0 - 1.0 % 06/01/2024 1:20 PM CDT [facility] ABSOLUTE NEUTROPHILS 4.89 1.40 - 5.30 10(3)/mcL 06/01/2024 1:20 PM CDT [facility] ABSOLUTE LYMPHOCYTES 1.67 0.90 - 3.30 10(3)/mcL 06/01/2024 1:20 PM CDT [facility] ABSOLUTE MONOCYTES 0.64 0.10 - 0.90 10(3)/mcL 06/01/2024 1:20 PM CDT [facility] ABSOLUTE EOSINOPHIL 0.26 0.00 - 0.50 10(3)/mcL 06/01/2024 1:20 PM CDT [facility] ABSOLUTE BASOPHILS 0.03 0.00 - 0.10 10(3)/mcL 06/01/2024 1:20 PM CDT [facility] NRBC PER 100 WBC 0 06/02/19 1:20 PM CDT [facility] Blood Venipuncture / Unknown 06/01/2024 1:10 PM CDT 06/01/2024 1:[address] [facility] PAC HEMATOLOGY ORDERABLES Fin al Result Performing Organization Address City/[facility]/ZIP Co de Phone Number [facility] [address] [place] [address] * VITAMIN B12 (06/01/2024 1:10 PM CDT) VITAMIN B12 572 213 - 816 pg/mL 06/01/2024 2:34 PM CDT [facility] Blood Venipuncture / Unknown 06/01/2024 1:10 PM CDT 06/01/2024 1:10 PM CDT Result [facility] CHEMISTRY ORDERABLES Estella l Result Performing Organization Address City/[facility] Co de Phone Number [facility] [address] [place] [address] * URINE DRUG SCREEN (05/11/2024) Saliva 05/11/2024 Ran Thacker MD URINE ORDERABLES Final Re sult from Last 3 Months Insurance MEDICAID [facility] PLAN Advance Directives Documents on File Type Date Recorded Patient Wave Solder Offbearer Expl anation Power of Hydrometeorologist for Health Care 01/08/2024 10:05 AM POA Power of Hydrometeorologist for Health Care 12/27/2022 3:34 PM POA MEDICAL Care Teams Inspector Final Assembly Mechanical Relationship Specialty Start Date End Date Ran Thacker MD [address]2 [facility] [address] [place] [address] PCP - General Family Medicine 11/30/22 Korey Matute MD [address] [place] [id number] Consulting Physician Neurology 02/01/23 Fernando Camarillo MD [address] [facility] [address] [place] [address] Consulting Physician Colon and Rectal Surgery 01/31/24
--- OUTSIDE RECORDS SUMMARY | 2024-07-21 09:29 | XMS_ITS | Encounter Summary ---
Author Organization [facility] Address [address] [place] [address] Phone Care Team Providers Care Pmo Business Analyst Name Role Phone Ran Thacker MD Primary Care Provider [phone] Korey Matute MD Unavailable [phone] Fernando Camarillo MD Unavailable Reason for Visit * Reason Comments Medication Refill Encounter Details Date Type Department Care Team (Late st Contact Info) Description 11/11/2023 Refill [facility] #2 [place] [address] Ran Thacker MD #[address] [id number] Medication Refill Social History Tobacco Use Types Packs/Day Years Used Date Smoking Tobacco: Former Cigarettes Smokeless Tobacco: Never Alcohol Use Standard Drinks/Week Comments Not Currently 0 (1 standard drink = 0.6 oz pur e alcohol) [facility] Utilities Answer Date Recorded In the past 12 months has [employer], gas, oil, or water [employer] threatened to shut off services in your home? No 04/03/2023 Social Connection and Isolat ion Panel [NHANES] Answer Date Recorded In a typical week, how many times do you talk on the phone with family, friends, or neighbors? More than three times a week 04/03/2023 How often do you get togethe r with friends or relatives? More than three times a week 04/03/2023 How often do you attend chur ch or zoroastrian services? Never 04/03/2023 Do you belong to any clubs o r organizations such as sabianist groups, unions, fraternal or athletic groups, or school groups? No 04/03/2023 How often do you attend meet ings of the clubs or organizations you belong to? Never 04/03/2023 Are you , , di vorced, , never , or living with a partner? 04/03/2023 AUDIT-C Answer Date Recorded Q1: How often do you have a drink containing alcohol? Never 04/03/2023 Q2: How many drinks containi ng alcohol do you have on a typical day when you are drinking? Patient does not drink Q3: How often do you have si x or more drinks on one occasion? Never 04/03/2023 Overall Financial Resource Strain (CARDIA) Answe r Date Recorded How hard is it for you to pa y for the very basics like food, housing, medical care, and heating? Not hard at all 04/03/2023 PHQ-2 Answer Date Recorded Total Score - Questions 1-9 0 09/16 [facility] [place] of Occupat ional Health - Occupational Stress Questionnaire Answer Date Recorded Do you feel stress - tense, restless, nervous, or anxious, or unable to sleep at night because your mind is troubled all the time - these days? Not at all 04/03/2023 Exercise Vital Sign Answer Date Recorde d On average, how many days pe r week do you engage in moderate to strenuous exercise (like a brisk walk)? 0 days 04/03/2023 On average, how many minutes do you engage in exercise at this level? 0 min 04/03/2023 Hunger Vital Sign Answer Date Recorded Within the past 12 months, y ou worried that your food would run out before you got the money to buy more. Never true 04/03/19 24 Within the past 12 months, t he food you bought just didn't last and you didn't have money to get more. Never true 04/03/2023 PRAPARE - Transportation Answer Date Re corded In the past 12 months, has l ack of transportation kept you from medical appointments or from getting medications? No 03/18 In the past 12 months, has l ack of transportation kept you from meetings, work, or from getting things needed for daily living? No 04/03/2023 Housing Stability Vital Sign Answer [...] place to sleep or slept in a correction (including now)? No 04/03/2023 Sex and Gender Information Value Date Recorded Sex Assigned at Not on file Legal Sex Male 10:13 AM CDT Gender Identity Not on file Sexual Orientation Not on file documented as of this encounter Miscellaneous Notes * Telephone Encounter - Nakia Davis RN - 11/12/2023 11:18 AM CDT Images from the original note were not included. Name from pharmacy: BACLOFEN 10MG TABLETS Will file in chart as: baclofen (LIORESAL) 10 MG Tablet The original prescription was reordered on 11/12/2023 by Ran Thacker MD. * Telephone Encounter - Nakia Davis RN - 11/12/2023 8:12 AM CDT duplicate documented in this encounter Plan of Treatment Upcoming Encounters Date Type Department Care Team (Late st Contact Info) Description 07/23/2024 2:45 PM CDT Physical Therapy [facility] Rehab at [facility] [address] [facility], [facility] [address] [place] [address] William Harrison MD [address] [address] Evie Arechiga, PT [place] Discharge Disposition: Discharged to home or Selfcare 09/03/2024 8:30 AM CDT Lab [facility] [address] [place] [address] MichelJennyferaugust, PAC [address] [place] [address] Discharge Disposition: Discharged to home or Selfcare 09/03/2024 9:40 AM CDT Office Visit [facility] [address] [place] [address] Michel, Donna August, PAC [address] [place] [address] Renan Hernandez MD [address] [place] [address] Discharge Disposition: Discharged to home or Selfcare 09/03/2024 10:30 AM CDT Clinical Support [facility] [address] [place] [address] [facility] [address] [place] [address] Discharge Disposition: Discharged to home or Selfcare 09/14/2024 10:45 AM CDT Office Visit [facility] #2 [place] [address] Ran Thacker MD [address] [address] documented as of this encounter Visit Diagnoses Not on filedocumented in this encounter Additional Health Concerns Assessment Noted Time PHQ-9 Depression Total Score: 0 07//20 24 1:23 PM CDT documented as of this encounter Care Teams Pmo Business Analyst Relationship Specialty Start Date End Date Ran Thacker MD #[address] [address] PCP - General Family Medicine 11/30/22 Korey Matute MD #2 [place] [address] Consulting Physician Neurology 02/01/23 Fernando Camarillo MD #[address] [address] Consulting Physician Colon and Rectal Surgery 01/31/24 documented as of this encounter
--- OUTSIDE RECORDS SUMMARY | 2024-07-21 09:29 | XMS_ITS | Encounter Summary ---
Author Organization [facility] Address [address] [place] [address] Phone Care Team Providers Care Signal Wirer Name Role Phone Ran Thacker MD Primary Care Provider [phone] Milena Chakraborty Unavailable Unavailab Milena Pollard Unavailable Unavailab Korey Mccloud MD Unavailable [phone] Fernando Camarillo MD Unavailable Reason for Visit * Reason Comments Medication Refill Encounter Details Date Type Department Care Team (Late st Contact Info) Description 03/28/2023 Refill [facility] - Family Medicine [facility] #2 [place] [address] Ran Thacker MD #[address] [address] Medication Refill Social History Tobacco Use Types Packs/Day Years Used Date Smoking Tobacco: Never Smokeless Tobacco: Never Alcohol Use Standard Drinks/Week Comments Never 0 (1 standard drink = 0.6 oz pur e alcohol) Sex and Gender Information Value Date Recorded Sex Assigned at Not on file Legal Sex Male 10:13 AM CDT Gender Identity Not on file Sexual Orientation Not on file documented as of this encounter Miscellaneous Notes * Telephone Encounter - Nakia Davis RN - 03/29/2023 8:41 AM CST Medication failed the protocol, provider to review and approve the medication order if appropriate. Requested Prescriptions Pending Prescriptions Disp Refills baclofen (LIORESAL) 10 MG Tablet [Pharmacy Med Name: BACLOFEN 10MG TABLETS] 90 Tablet 0 Sig: TAKE 1 TABLET BY MOUTH THREE TIMES DAILY Not Delegated - Muscle Relaxants Protocol Failed - 03/28/2023 3:48 PM Failed - This refill cannot be delegated Passed - Visit with relevant provider in past 12 months or upcoming 90 days Recent Visits Date Type Provider Dept 12/27/22 Office Visit Rna Thacker MD [facility] Showing recent visits within past 365 days and meeting all other requirements Future Appointments Date Type Provider Dept 04/04/23 Appointment Ran Thacker MD [facility] Showing future appointments within next 90 days and meeting all other requirements UELS PRODUCT MANAGER documented in this encounter Plan of Treatment Upcoming Encounters Date Type Department Care Team (Late st Contact Info) Description 07/23/2024 2:45 PM CDT Physical Therapy [facility] Rehab at [facility] [address] [phone] William Harrisno MD [address] [address] Evie Arechiga, PT [place] Discharge Disposition: Discharged to home or Selfcare 09/03/2024 8:30 AM CDT Lab [facility] [address] [place] [address] Donna Michel PAC [address] [place] [address] Discharge Disposition: Discharged to home or Selfcare 09/03/2024 9:40 AM CDT Office Visit [facility] Services [address] [place] [address] Donna Michel August, PAC [address] [place] [address] Renan Hernandez MD [address] [place] [address] Discharge Disposition: Discharged to home or Selfcare 09/03/2024 10:30 AM CDT Clinical Support [facility] [address] [place] [address] Donna Michel August, PAC [address] [place] [address] Discharge Disposition: Discharged to home or Selfcare 09/14/2024 10:45 AM CDT Office Visit [facility] - Family Medicine [facility] #2 [place] [address] Ran Thacker MD #[address] [address] documented as of this encounter Visit Diagnoses Not on filedocumented in this encounter Additional Health Concerns Infection Onset Date Last Indicated Resolved Time COVID - 19 03/28/2023 03/28/2023 04/07/2023 12:1 6 AM [employer] PRODUCT MANAGER documented as of this encounter Care Teams Signal Wirer Relationship Specialty Start Date End Date Ran Thacker MD #[address] [address] PCP - General Family Medicine 11/30/22 Milena Chakraborty LSW [place] Rail Engineer 12/27/22 04/03/23 Milena Chakraborty LSW [place] Fish Packer Rail Engineer 12/27/22 06/24/23 Korey Matute MD #2 [place] [address] Consulting Physician Neurology 02/01/23 Fernando Camarillo MD #[address] [address] Consulting Physician Colon and Rectal Surgery 01/31/24 documented as of this encounter
--- OUTSIDE RECORDS SUMMARY | 2024-07-21 09:29 | XMS_ITS | Encounter Summary ---
Author Organization [facility] Address [address] [place] [address] Phone Care Team Providers Care Siphon Operator Name Role Phone Ran Thacker MD Primary Care Provider [phone] Korey Matute MD Unavailable [phone] Fernando Camarillo MD Unavailable Reason for Visit * Reason Comments Medication Refill Encounter Details Date Type Department Care Team (Late st Contact Info) Description 11/11/2023 Refill [facility] - Family Medicine [facility] #2 [place] [address] Ran Thacker MD #[address] [id number] Medication Refill Social History Tobacco Use Types Packs/Day Years Used Date Smoking Tobacco: Former Cigarettes Smokeless Tobacco: Never Alcohol Use Standard Drinks/Week Comments Not Currently 0 (1 standard drink = 0.6 oz pur e alcohol) [facility] Utilities Answer Date Recorded In the past 12 months has [employer], gas, oil, or water [employer] threatened to shut off services in your [...] often do you attend chur ch or denominational services? Never 04/03/2023 Do you belong to any clubs o r organizations such as yazidism groups, unions, fraternal or athletic groups, or [...] Total Score - Questions 1-9 0 09/16 [facility] [place] of Occupat ional Health - Occupational Stress [...] place to sleep or slept in a detention (including now)? No 04/03/2023 Sex and Gender [...] prescription was reordered on 11/12/2023 by Ran Tahcker MD. * Telephone Encounter - Nakia Davis RN - 11/12/2023 8:12 AM CDT duplicate documented in this encounter Plan of Treatment Upcoming Encounters Date Type Department Care Team (Late st Contact Info) Description 07/23/2024 2:45 PM CDT Physical Therapy [facility] Rehab at [facility] 200 [facility], [facility] H[address] [place] [address] William Harrison MD [address] [address] Evie Arechiga, PT [place] Discharge Disposition: Discharged to home or Selfcare 09/03/2024 8:30 AM CDT Lab [facility] Services [address] [place] [address] MichelJennyferaugust, PAC [address] [place] [address] Discharge Disposition: Discharged to home or Selfcare 09/03/2024 9:40 AM CDT Office Visit [facility] [address] [place] [address] Michel, Donna August, PAC [address] [place] [address] Renan Hernandez MD [address] [place] [address] Discharge Disposition: Discharged to home or Selfcare 09/03/2024 10:30 AM CDT Clinical Support [facility] [address] [place] [address] [facility] [address] [place] [address] Discharge Disposition: Discharged to home or Selfcare 09/14/2024 10:45 AM CDT Office Visit [facility] - Family Medicine [facility] #2 [place] [address] Ran Thacker MD #[address] [address] documented as of this encounter Visit Diagnoses Not on filedocumented in this encounter Additional Health Concerns Assessment Noted Time PHQ-9 Depression Total Score: 0 07//20 24 1:23 PM CDT documented as of this encounter Care Teams Siphon Operator Relationship Specialty Start Date End Date Ran Thacker MD #[address] [address] PCP - General Family Medicine 11/30/22 Korey Matute MD #2 [place] [address] Consulting Physician Neurology 02/01/23 Fernando Camarillo MD #[address] [address] Consulting Physician Colon and Rectal Surgery 01/31/24 documented as of this encounter
--- OUTSIDE RECORDS SUMMARY | 2024-07-21 09:30 | XMS_ITS | Encounter Summary ---
Author Organization [facility] Address [address] [place] [address] Phone Care Team Providers Care Mononitrotoluene Operator Name Role Phone Ran Thacker MD Primary Care Provider [phone] Milena Chakraborty Unavailable Unavailab Milena Pollard Unavailable Unavailab Korey Mccloud MD Unavailable [phone] Fernando Camarillo MD Unavailable Reason for Visit * Reason Comments Medication Refill Encounter Details Date Type Department Care Team (Late st Contact Info) Description 03/25/2023 Refill [facility] - Family Medicine [facility] #2 [place] [address] Ran Thacker MD #[address] [address] Medication Refill Social History Tobacco Use Types [...] Telephone Encounter - Nakia Davis RN - 03/25/2023 2:35 PM CST Signed Yesterday (03/24/2023): desipramine (NORPRAMIN) 25 MG Tablet Sig: TAKE 4 TABLETS BY MOUTH EVERY NIGHT Disp: 120 Tablet ? Refills: 0 Signed by: Ran Thacker MD [facility] MEJIA ICAL SECURITY MANAGER documented in this encounter Plan of Treatment Upcoming Encounters Date Type Department Care Team (Late st Contact Info) Description 07/23/2024 2:45 PM CDT Physical Therapy [facility] Rehab at [facility] [address] [phone] William Harrison MD [address] [address] Evie Arechiga, PT [place] Discharge Disposition: Discharged to home or Selfcare 09/03/2024 8:30 AM CDT Lab [facility] Oncology Services 0 [place] [address] Donna Michel August, PAC [address] [place] [address] Discharge Disposition: Discharged to home or Selfcare 09/03/2024 9:40 AM CDT Office Visit [facility] Services [address] [place] [address] Donna Michel August, PAC [address] [place] [address] Renan Hernandez MD [address] [place] [address] Discharge Disposition: Discharged to home or Selfcare 09/03/2024 10:30 AM CDT Clinical Support [facility] On[facility] Services [address] [place] [address] Michel Donna Meghna, PAC [address] [place] [address] Discharge Disposition: Discharged to home or Selfcare 09/14/2024 10:45 AM CDT Office Visit [facility] - [facility] #2 [place] [address] Ran Thacker MD #2 [facility] [address] [place] [address] documented as of this encounter Visit Diagnoses Not on filedocumented in this encounter Additional Health Concerns Infection Onset Date Last Indicated Resolved Time COVID - 19 03/28/2023 03/28/2023 04/07/2023 12:1 6 AM PHYSICAL SECURITY MANAGER documented as of this encounter Care Teams Mononitrotoluene Operator Relationship Specialty Start Date End Date Ran Thacker MD #[address] [address] PCP - General Family Medicine 11/30/22 Milena Chakraborty LSW [place] Quartz Cutter 12/27/22 04/03/23 Milena Chakraborty LSW [place] Sleeping Bag Filler Quartz Cutter 12/27/22 06/24/23 Korey Matute MD #2 [place] [address] Consulting Physician Neurology 02/01/23 Fernando Camarillo MD #2 [facility] [address] [place] [address] Consulting Physician Colon and Rectal Surgery 01/31/24 documented as of this encounter
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
--- OUTSIDE RECORDS SUMMARY | 2024-07-21 09:30 | XMS_ITS | Encounter Summary ---
Author Organization [facility] Address [address] [place] [address] Phone Care Team Providers Care Ict Support And Test Engineers Name Role Phone Ran Thacker MD Primary Care Provider [phone] Milena Chakraborty Unavailable Unavailab Milena Pollard Unavailable Unavailab Korey Mccloud MD Unavailable [phone] Fernando Camarillo MD Unavailable Reason for Visit * Reason Comments Medication Refill Encounter Details Date Type Department Care Team (Late st Contact Info) Description 02/20/2023 Refill [facility] - Family Medicine [facility] [address] [place] [address] Ran Thacker MD [address] [address] Medication Refill Social History Tobacco Use Types Packs/Day Years Used Date Smoking Tobacco: Never Smokeless Tobacco: Never Alcohol Use Standard Drinks/Week Comments Never 0 (1 standard drink = 0.6 oz pur e alcohol) Sex and Gender Information Value Date Recorded Sex Assigned at Not on file Legal Sex Male 10:13 AM CDT Gender Identity Not on file Sexual Orientation Not on file COVID-19 Exposure Response Date Recorded In the last 10 days, have yo u been in contact with someone who was confirmed or suspected to have Coronavirus/COVID-19? No / Unsure 01/25/2023 9:16 AM RUNNING INSTRUCTOR documented as of this encounter Miscellaneous Notes * Telephone Encounter - Jaycee Soto RN - 02/20/2023 12:32 PM RUNNING INSTRUCTOR Medication failed the protocol, provider to review and approve the medication order if appropriate. Requested Prescriptions Pending Prescriptions Disp Refills gabapentin (NEURONTIN) 300 MG Capsule [Pharmacy Med Name: GABAPENTIN 300MG CAPSULES] 90 Capsule 0 Sig: TAKE 1 CAPSULE BY MOUTH EVERY 8 HOURS Not Delegated - Anticonvulsants Excluding Benzodiazepines Protocol Failed - 02/20/2023 12:28 PM Failed - This refill cannot be delegated Passed - Visit with relevant provider in past 12 months or upcoming 90 days Recent Visits Date Type Provider Dept 12/27/22 Office Visit Ran Thacker MD [facility] Showing recent visits within past 365 days and meeting all other requirements Future Appointments Date Type Provider Dept 04/04/23 Appointment Ran Thacker MD [facility] Showing future appointments within next 90 days and meeting all other requirements ING INSTRUCTOR documented in this encounter Plan of Treatment Upcoming Encounters Date Type Department Care Team (Late st Contact Info) Description 07/23/2024 2:45 PM CDT Physical Therapy [facility] at [address] [phone] William Harrison MD [address] [address] Evie Arechiga, PT [place] Discharge Disposition: Discharged to home or Selfcare 09/03/2024 8:30 AM CDT Lab [facility] Oncology Services [address] [place] [phone] Donna Michel, PAC [address] [place] [address] Discharge Disposition: Discharged to home or Selfcare 09/03/2024 9:40 AM CDT Office Visit [facility] Oncology Services [address] [place] [address] HeltonDonna August, PAC [address] [place] [address] Renan Hernandez MD [address] [place] [address] Discharge Disposition: Discharged to home or Selfcare 09/03/2024 10:30 AM CDT Clinical Support [facility] Oncology Services [address] [place] [address] [facility] August, PAC [address] [place] [address] Discharge Disposition: Discharged to home or Selfcare 09/14/2024 10:45 AM CDT Office Visit [facility] Group - Family Medicine [facility] [address] [place] [address] Ran Thacker MD [address] [address] documented as of this encounter Visit Diagnoses Not on filedocumented in this encounter Additional Health Concerns Infection Onset Date Last Indicated Resolved Time COVID - 19 03/28/2023 03/28/2023 04/07/2023 12:1 6 AM RUNNING INSTRUCTOR documented as of this encounter Care Teams Ict Support And Test Engineers Relationship Specialty Start Date End Date Ran Thacker MD [address] [address] PCP - General Family Medicine 11/30/22 Milena Chakraborty LSW [place] Agriculture Technician 12/27/22 04/03/23 Milena Chakraborty, TECHNICAL EDUCATION TEACHER [place] Auger Operator Agriculture Technician 12/27/22 06/24/23 Korey Matute MD [address] [place] [address] Consulting Physician Neurology 02/01/23 Fernando Camarillo MD [address] [address] Consulting Physician Colon and Rectal Surgery 01/31/24 documented as of this encounter
--- OUTSIDE RECORDS SUMMARY | 2024-07-21 09:30 | XMS_ITS | Encounter Summary ---
Author Organization [facility] Address [address] [place] [address] Phone Care Team Providers Care Transformation Analyst Name Role Phone Ran Thacker MD Primary Care Provider [phone] Korey Matute MD Unavailable [phone] Fernando Camarillo MD Unavailable Reason for Visit * Reason Comments Medication Refill Encounter Details Date Type Department Care Team (Late st Contact Info) Description 06/28/2023 Refill [facility] Medical [facility] - Family Medicine [facility] [address] [place] [address] Ran Thacker MD #[address] [id number] Medication Refill Social History Tobacco Use Types Packs/Day Years Used Date Smoking Tobacco: Some Days Cigarettes Smokeless Tobacco: Never Alcohol Use Standard Drinks/Week Comments Not Currently 0 (1 standard drink = 0.6 oz pur e alcohol) [facility] Utilities Answer Date Recorded In the past 12 months has [employer], gas, oil, or water [employer] threatened to shut off services in your [...] often do you attend chur ch or taoism services? Never 04/03/2023 Do you belong to any clubs o r organizations such as congregation groups, unions, fraternal or athletic groups, or [...] Recorded Total Score - Questions 1-9 0 03/18 [facility] - Occupational Stress [...] place to sleep or slept in a fpc (including now)? No 04/03/2023 Sex and Gender Information Value Date Recorded Sex Assigned at Not on file Legal Sex Male 10:13 AM CDT Gender Identity Not on file Sexual Orientation Not on file documented as of this encounter Miscellaneous Notes * Telephone Encounter - Nakia Davis RN - 06/28/2023 1:25 PM CDT Medication failed the protocol, provider to review and approve the medication order if appropriate. Requested Prescriptions Pending Prescriptions Disp Refills baclofen (LIORESAL) 10 MG Tablet [Pharmacy Med Name: BACLOFEN 10MG TABLETS] 90 Tablet 0 Sig: TAKE 1 TABLET BY MOUTH THREE TIMES DAILY Not Delegated - Muscle Relaxants Protocol Failed - 06/28/2023 8:30 AM Failed - This refill cannot be delegated Passed - Visit with relevant provider in past 12 months or upcoming 90 days Recent Visits Date Type Provider Dept 04/04/23 Office Visit Ran Thacker MD [facility] 12/27/22 Office Visit Ran Thacker MD [facility] Showing recent visits within past 365 days and meeting all other requirements Future Appointments Date Type Provider Dept 07/11/23 Appointment Ran Thacker MD [facility] Showing future appointments within next 90 days and meeting all other requirements documented in this encounter Plan of Treatment Upcoming Encounters Date Type Department Care Team (Late st Contact Info) Description 07/23/2024 2:45 PM CDT Physical Therapy [facility] at [facility] [address] [facility], [address] [address] William Harrison MD [address] [facility] [address] [place] [address] Evie Arechiga, PT [place] Discharge Disposition: Discharged to home or Selfcare 09/03/2024 8:30 AM CDT Lab [facility] [address] [place] [address] Donna Michel August, PAC [address] [place] [address] Discharge Disposition: Discharged to home or Selfcare 09/03/2024 9:40 AM CDT [facility] [address] [place] [address] Donna Michel August, PAC [address] [place] [address] Renan Hernandez MD [address] [place] [address] Discharge Disposition: Discharged to home or Selfcare 09/03/2024 10:30 AM CDT [facility] [address] [place] [address] Donna Michel August, PAC [address] [place] [address] Discharge Disposition: Discharged to home or Selfcare 09/14/2024 10:45 AM CDT Office Visit [facility] Medical Group - Family [facility] [address] [place] [address] Ran Thacker MD #[address] [facility] [address] [place] [address] documented as of this encounter Visit Diagnoses Not on filedocumented in this encounter Additional Health Concerns Assessment Noted Time PHQ-9 Depression Total Score: 0 04/03/19 24 9:52 AM DROP FORGER documented as of this encounter Care Teams Transformation Analyst Relationship Specialty Start Date End Date Ran Thacker MD #[address] [address] PCP - General Family Medicine 11/30/22 Korey Matute MD [address] [place] [address] Consulting Physician Neurology 02/01/23 Fernando Camarillo MD #[address] [address] Consulting Physician Colon and Rectal Surgery 01/31/24 documented as of this encounter
--- OUTSIDE RECORDS SUMMARY | 2024-07-21 09:30 | XMS_ITS | Encounter Summary ---
Author Organization [facility] Address [address] [place] [address] Phone Care Team Providers Care Acid Splicer Name Role Phone Ran Thacker MD Primary Care Provider [phone] Korey Matute MD Unavailable [phone] Fernando Camarillo MD Unavailable Reason for Referral * Medication Prior Authorization - Denied Specialty Diagnoses / Procedures Referred By Contmike t Referred To Contact Ran Thacker MD #[address] [address] Phone: tel: fax: Referral ID Status Reason Start Date Expiration Date Visits Re quested Visits Authorized [id number] Denied 1 1 Reason for Visit * Reason Onset Date Comments Medication Management 01/10/2024 Encounter Details Date Type Department Care Team (Late st Contact Info) Description 01/10/2024 [facility]phone [facility] [address] [place] [address] Ran Thacker MD #[address] [address] Medication Management Social History Tobacco Use Types Packs/Day Years Used Date Smoking Tobacco: Former Cigarettes Smokeless Tobacco: Never Alcohol Use Standard Drinks/Week Comments Not Currently 0 (1 standard drink = 0.6 oz pur e alcohol) [facility] Utilities Answer Date Recorded In the past 12 months has th e electric, gas, oil, or water company threatened to shut off services in your [...] 01/08/2024 How often do you attend chur ch or voodoo services? Patient declined 01/08/2024 Do you belong to any clubs o r organizations such as jain groups, unions, fraternal or athletic groups, or [...] Total Score - Questions 1-9 0 09/16 [facility] [place] of Occupat ional Health - Occupational Stress [...] place to sleep or slept in a long term (including now)? No 04/03/2023 Housing Stability Vital Sign Answer Mookie e Recorded In the last 12 months, was t here a time when you were not able to pay the mortgage or rent on time? No 01/08/2024 In the past 12 months, how m any times have you moved where you were living? 0 01/08/2024 At any time in the past 12 m [facility], were you homeless or living in a long term (including now)? No 01/08/2024 Sex and Gender Information Value Date Recorded Sex Assigned at Not on file Legal Sex Male 10:13 AM CDT Gender Identity Not on file Sexual Orientation Not on file documented as of this encounter Miscellaneous Notes * Telephone Encounter - Ran Thacker MD - 01/10/2024 9:18 PM CDT New med order entered for once a day. Thanks! * Telephone Encounter - Marquita Keane RN - 01/10/2024 10:41 AM CDT Situation: Medication management Background: EVANGELISTA Rawls verified calling Assessment: For the Pantoprazole medication, was advised per pharmacy the insurance will not pay for if taking twice per day. States was advised the insurance will pay for medication if taking one pill per day. [facility] stating Mitch has been taking two pills per day. Current prescription is for twice daily. [facility] asking if able to decrease dose to once per day for insurance to cover medication. Recommendation: Please advise and callback to notify. Thank you. documented in this encounter Plan of Treatment Upcoming Encounters Date Type Department Care Team (Late st Contact Info) Description 07/23/2024 2:45 PM CDT Physical Therapy [facility] [address] [address] William Harrison MD [address] [address] Evie Arechiga, PT [place] Discharge Disposition: Discharged to home or Selfcare 09/03/2024 8:30 AM CDT [facility] [address] [place] [phone] Donna Michel August, PAC [address] [place] [address] Discharge Disposition: Discharged to home or Selfcare 09/03/2024 9:40 AM CDT Office Visit [facility] Services [address] [place] [phone] Donna Michel August, PAC [address] [place] [address] Renan Hernandez MD 0 [place] [address] Discharge Disposition: Discharged to home or Selfcare 09/03/2024 10:30 AM CDT Clinical Support [facility] On[facility] Services [address] [place] [phone] Donna Michel, [facility] [address] [place] [address] Discharge Disposition: Discharged to home or Selfcare 09/14/2024 10:45 AM CDT Office Visit [facility] Medical Group - Family [facility] #2 [place] [address] Ran Thacker MD #2 [facility] [address] [place] [address] documented as of this encounter Visit Diagnoses Not on filedocumented in this encounter Additional Health Concerns Assessment Noted Time PHQ-9 Depression Total Score: 0 10/10/19 24 1:23 PM CDT documented as of this encounter Care Teams Acid Splicer Relationship Specialty Start Date End Date Ran Thacker MD #2 [facility] [address] [place] [address] PCP - General Family Medicine 11/30/22 Korey Matute MD #2 [place] [phone] Consulting Physician Neurology 02/01/23 Fernando Camarillo MD #2 [facility] [address] [place] [address] Consulting Physician Colon and Rectal Surgery 01/31/24 documented as of this encounter
--- OUTSIDE RECORDS SUMMARY | 2024-07-21 09:30 | XMS_ITS | Encounter Summary ---
Author Organization [facility] Address [address] [place] [address] Care Team Providers Care Matrix Bath Operator Name Role Phone Ran Thacker MD Primary Care Provider [phone] Encounter Details Date Type Department Care Team (Late st Contact Info) Description 07/12/2024 Results Follow-Up [facility] Convenient Care at [address] [address] Sugar Hernández PA [address] [place] [address] [address] [place] [address] Social History Tobacco Use Types Packs/Day Years Used Date Smoking Tobacco: Never Assessed Sex and Gender Information Value Date Recorded Sex Assigned at Not on file Legal Sex Male 5:27 PM CDT Gender Identity Not on file Sexual Orientation Not on file documented as of this encounter Miscellaneous Notes * Result Encounter Note - Aruna Esparza MA - 07/13/2024 9:54 AM CDT Patient called back again and asked again for his test results of his STD testing. I informed him again that all of his STD testing that we tested him for was negative. He asked again about blood work. I informed him that we did not order blood work for him and that we did not test him for anythingother than, trichomonas, gonorrheae, chlamydia and HSV. Not entirely sure patient understood but conversation was over and call was ended. * Result Encounter Note - Aruna Esparza MA - 07/13/2024 9:13 AM CDT Patient called back about his test results and he was informed that he was negative for all his STDtesting. He then asked about Syphilous. I told him that that was a blood test and that I do not seethat he had blood work done. He said he only had urine testing done and I told him it was a blood test and then just hung up. * Result Encounter Note - Sugar Hernández PA - 07/12/2024 7:56 AM CDT Please inform patient of negative HSV test. documented in this encounter Plan of Treatment Not on file documented as of this encounter Visit Diagnoses Not on filedocumented in this encounter Care Teams Matrix Bath Operator Relationship Specialty Start Date End Date Ran Thacker MD [address] [place] [address] PCP - General Family Medicine 07/10/24 documented as of this encounter
--- OUTSIDE RECORDS SUMMARY | 2024-07-21 09:30 | XMS_ITS | Clinical Summary ---
Author Organization [facility] [place] [facility] Office Center Address [address] [place] [address] Care Team Providers Care Spray Ii Painter Name Role Phone Ran Thacker MD Primary Care Provider [phone] Allergies No known active allergies Medications gabapentin (NEURONTIN) 300 mg capsule Take 1 capsule (300 mg total) by mouth every 8 (eight) hours 09/28/2023 Active tiZANidine (ZANAFLEX) 4 mg tablet Take 1 tablet (4 mg total) by mouth every 8 (eight) hours as needed Active temazepam (RESTORIL) 30 mg capsule TAKE 1 CAPSULE BY MOUTH EVERY NIGHT NEEDED FOR SLEEP Active baclofen (LIORESAL) 10 mg tablet Take 1 tablet (10 mg total) by mouth 3 (three) times a day Active busPIRone (BUSPAR) 10 mg tablet Take 1 tablet (10 mg total) by mouth 2 (two) times a day 02/01/2020 Active desipramine (NORPRAMIN) 25 mg tablet Take 4 tablets (100 mg total) by mouth nightly Active docusate sodium (COLACE) 100 mg capsule Take 1 capsule (100 mg total) by mouth 2 (two) times a day Active haloperidoL (HALDOL) 2 mg tablet Take 1 tablet (2 mg total) by mouth as directed 05/14/2022 Active metoprolol XL (TOPROL-XL) 25 mg extended release tablet Take 1 tablet (25 mg total) by mouth daily Active sennosides 8.6 mg capsule Take 1 tablet by mouth as directed Active sertraline (ZOLOFT) 50 mg tablet Take 1 tablet (50 mg total) by mouth daily 02/01/2020 Active Active Problems No known active problems Encounters Date Type Department Care Team Description 07/14/2024 6:45 PM CDT Office Visit [facility] Medical [facility] Convenient Care at [address] [address] Mariam Cordero NP Anal pain (Primary Dx) 07/12/2024 Results Follow-Up [facility]ient Care at [address] [address] Sugar Hernández PA 07/10/2024 4:15 PM CDT Office Visit [facility]ient Care at [address] [address] Silvia Brown NP Possible exposure to STI (Primary Dx) 07/10/2024 3:37 PM CDT - 07/10/2024 11:59 PM CDT Hospital Encounter [address] [address] Possible exposure to STI Discharge Disposition: Discharge to home or self care from Last 3 Months Social History Tobacco Use Types Packs/Day Years Used Date Smoking Tobacco: Never Assessed Sex and Gender Information Value Date Recorded Sex Assigned at Not on file Legal Sex Male 5:27 PM CDT Gender Identity Not on file Sexual Orientation Not on file Obstetrics History Last Filed Vital Signs Vital Sign Reading Time Taken Comments Blood Pressure 145/92 07/14/2024 6:32 PM CDT Pulse 67 07/14/2024 6:32 PM CDT Temperature 36.6 C (97.8 F) 07/14/2024 6:32 PM CDT Respiratory Rate 18 07/14/2024 6:32 PM CDT Oxygen Saturation 95% 07/14/2024 6:32 PM CDT Inhaled Oxygen Concentration - - Weight 96.7 kg (213 lb 3.2 oz) 07/14/2024 6:32 P M CDT Height 180.3 cm (5' 10.98 ) 07/14/2024 6:32 PM C DT Body Mass Index 29.75 07/14/2024 6:32 PM CDT Plan of Treatment Health Maintenance Due Date Last Done Comments Depression Screening 1985 Hepatitis C Screening 1985 Varicella Vaccines (1 of 2 - 13+ 2-dose series) 1998 Hepatitis B Screening 09/13/2003 Regular Well Visit/Exam 18-64 09/13/2003 Covid-19 Vaccine (4 - 2023-2 5 season) 2023 03/31/2021, 10/12/2020, 09/14/2020 DTaP/Tdap/Td Vaccine (4 - Td or Tdap) 11/07/2031 11/06/2021, 09/18/2020, 10/07/2015 Influenza Vaccine Completed 11/21/2023, 12/27/2022 HPV Vaccines Aged Out No longer eligi ble based on patient's age to complete this topic Pneumococcal vaccine <65 Aged Out No longer eligible based on patient's age to complete this topic Procedures Procedure Name Priority Date/Time Associated Diagnosis Comments TRICHOMONAS VAGINALIS PCR Routine 07/10/2024 3:37 PM CDT N. GONORRHOEAE/C. TRACHOMATIS AMPLIFICATION Routine 07/10/2024 3:37 PM CDT Possible exposure to STI HERPES SIMPLEX VIRUS (HSV) PCR Routine 07/10/2024 3:37 PM CDT Possible exposure to STI from Last 3 Months Results * Herpes Simplex Virus (HSV) PCR Penile (07/10/2024 3:37 PM CDT) HSV DNA Not Detected Not Detected [facility] Comment: Interpretive Data This assay is performed using primers specific for the DNA polymerase gene of both HSV-1 and HSV-2. The assay contains unique primer/probe sets capable of distinguishing between HSV-1 and HSV-2. This assay has been cleared by the U.S. Food and Drug Administration for performance on cerebrospinal fluid and genital swabs. The assay has been evaluated for use on alternative sample types, though it is not FDA cleared for these applications. The performance of all sample types has been validated by the performing laboratory and deemed acceptable for patient testing. Current Interpretive Data was last reviewed on 07/15/2018 Testing performed by: [facility], [address] [facility] [place] [address] Penile 07/10/2024 3:37 PM CDT 07/11/2024 6:40 PM CDT Silvia Brown NP LAB MICROBIOLOGY - GENERAL ORD ERABLES Final Result Performing Organization Address [facility] Co de Phone Number RAD [address] [address] [place] [address] [facility] * N. gonorrhoeae/C. trachomatis Amplification Urine (07/10/2024 3:37 PM CDT) C. trachomatis Not Detected [facility] Comment:Testing performed by : [facility], [address] [place] [address]., [address] N. gonorrhoeae Not Detected [facility] Comment: Interpretive Data This assay detects Chlamydia trachomatis and Neisseria gonorrhoeae by nucleic acid amplification testing (NAAT). This assay has been cleared by the [place] Food and Drug administration. The performance characteristics of this test have been verified by the [facility] Molecular Infectious Disease laboratory. The performance characteristics of this test have not been evaluated in individuals less than 14 years of age. Current Interpretive Data was last revised on 2023. Testing performed by: [facility], [address] [place] [address]., [address] Urine (None) 07/10/2024 3:37 PM CDT 07/11/2024 6:43 PM CDT Silvia Brown NP LAB MICROBIOLOGY - GENERAL ORD ERABLES Final Result Performing Organization Address City/[facility]/ZIP Co de Phone Number RAD EVELIN [address] [address] [facility] [place] [address] [facility] * Trichomonas vaginalis PCR Urine (07/10/2024 3:37 PM CDT) Trichomonas DNA Not Detected [facility] Comment: Interpretive Data This assay detects Trichomonas vaginalis by nucleic acid amplification testing (NAAT). This assay has been cleared by the [place] Food and Drug administration. The performance characteristics of this test have been verified by the [facility] Molecular Infectious Disease laboratory. The performance of this test has not been evaluated in individuals less than 18 years of age. Current Interpretive Data was last revised on 2023. Testing performed by: [facility], [address] [facility], [place]., [address] Urine 07/10/2024 3:37 PM CDT 07/11/2024 6:43 PM CDT us Silvia Brown NP LAB MICROBIOLOGY - GENERAL ORD ERABLES [place] Result RAD [address] [address] Department [place] [address] [facility] from Last 3 Months Insurance [facility] MICKY FLETCHER [id number] [facility] Care Teams Spray Ii Painter Relationship Specialty Start Date End Date Ran Thacker MD [address] [address] PCP - General Family Medicine 07/10/24
--- OUTSIDE RECORDS SUMMARY | 2024-07-21 09:30 | XMS_ITS | Encounter Summary ---
Author Organization [facility] Address [address] [place] [address] Phone Care Team Providers Care Funeral Home Director Name Role Phone Ran Thacker MD Primary Care Provider [phone] Korey Matute MD Unavailable [phone] Fernando Camarillo MD Unavailable Reason for Visit * Reason Comments Medication Refill Encounter Details Date Type Department Care Team (Late st Contact Info) Description 08/06/2023 Refill [facility] Medical Group - Family Medicine [facility] #[address] [place] [address] Ran Thacker MD #[address] [address] Medication Refill Social History Tobacco Use Types Packs/Day Years Used Date Smoking Tobacco: Former Cigarettes Smokeless Tobacco: Never Alcohol Use Standard Drinks/Week Comments Not Currently 0 (1 standard drink = 0.6 oz pur e alcohol) [facility] Utilities Answer Date Recorded In the past 12 months has [employer], gas, oil, or water [employer] threatened to shut off services in your [...] often do you attend chur ch or tenriism services? Never 04/03/2023 Do you belong to any clubs o r organizations such as yazidi groups, unions, fraternal or athletic groups, or [...] Total Score - Questions 1-9 0 03/18 [facility] [place] of Occupat ional Health - Occupational Stress [...] Telephone Encounter - Nakia Davis RN - 08/06/2023 9:58 AM CDT Medication failed the protocol, provider to review and approve the medication order if appropriate. Requested Prescriptions Pending Prescriptions Disp Refills baclofen (LIORESAL) 10 MG Tablet [Pharmacy Med Name: BACLOFEN 10MG TABLETS] 90 Tablet 0 Sig: TAKE 1 TABLET BY MOUTH THREE TIMES DAILY Not Delegated - Muscle Relaxants Protocol Failed - 08/06/2023 9:17 AM Failed - This refill cannot be delegated Passed - Visit with relevant provider in past 12 months or upcoming 90 days Recent Visits Date Type Provider Dept 07/11/23 Office Visit Ran Thacker MD [facility] 07/04/23 Telemedicine Ran Thacker MD [facility] 04/04/23 Office Visit Ran Thacker MD [facility] 12/27/22 Office Visit Ran Thacker MD [facility] Showing recent visits within past 365 days and meeting all other requirements Future Appointments Date Type Provider Dept 08/08/23 Appointment Ran Thacker MD [facility] 10/10/23 Appointment Ran Thacker MD [facility] Showing future appointments within next 90 days and meeting all other requirements documented in this encounter Plan of Treatment Upcoming Encounters Date Type Department Care Team (Late st Contact Info) Description 07/23/2024 2:45 PM CDT Physical Therapy [facility] Re[facility] at [facility] 200 [facility], [facility] [address] [place] [address] William Harrison MD [address] [facility] [address] [place] [address] Eive Arechiga, PT [place] Discharge Disposition: Discharged to home or Selfcare 09/03/2024 8:30 AM CDT [facility] [address] [place] [address] Donna Michel August, PAC [address] [place] [address] Discharge Disposition: Discharged to home or Selfcare 09/03/2024 9:40 AM CDT [facility] [address] [place] [address] Donna Michel August, PAC [address] [place] [address] Renan Hernandez MD [address] [place] [address] Discharge Disposition: Discharged to home or Selfcare 09/03/2024 10:30 AM CDT Clinical Support [facility] Oncology Services [address] [place] [address] Donna Michel August, PAC [address] [place] [address] Discharge Disposition: Discharged to home or Selfcare 09/14/2024 10:45 AM CDT Office Visit [facility] #2 [place] [address] Ran Thacker MD #[address] [address] documented as of this encounter Visit Diagnoses Not on filedocumented in this encounter Additional Health Concerns Assessment Noted Time PHQ-9 Depression Total Score: 0 04/03/19 9:52 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
--- OUTSIDE RECORDS SUMMARY | 2024-07-21 09:30 | XMS_ITS | Clinical Summary ---
Author Organization [facility] Address [address] [place] [address] Care Team Providers Care Physician Specialist Name Role Phone Ran Layne Gerson CASTELLANO Primary Care Provider [phone] Allergies No known active allergies Medications loratadine (CLARITIN) 10 MG tabletIndication s:Seasonal allergic rhinitis due to pollen Take 1 tablet (10 mg total) by mouth daily. 30 tablet 11 0 Active nicotine 14 MG/24HR Place 1 patch onto the skin daily. Active busPIRone 10 MG tabletIndication s:Anxiety Take 1 tablet (10 mg total) by mouth 2 (two) times daily. 60 tablet 1 0 Active sertraline (ZOLOFT) 50 MG tabletIndication s:Current moderate episode of major depressive disorder, unspecified whether recurrent (CMS/HCC) Take 1 tablet (50 mg total) by mouth daily. 30 tablet 1 0 Active triamcinolone 0.1 % creamIndications :Psoriasis Apply topically 2 (two) times daily. 80 g 1 0 Active albuterol sulfate HFA (PROAIR HFA) 108 (90 Base) MCG/ACT inhalerIndicatio ns:Cough Inhale 2 puffs into the lungs every 6 (six) hours as needed for Wheezing. 1 Inhaler 1 0 Active Active Problems No known active problems Immunizations Immunization Administration Dates Next Due Tdap (Generic) 10/07/2015 Family History Medical History Relation Comments Diabetes Brother Hyperlipidemia Father Hypertension Father Asthma Mother Heart Disease Paternal Grandfather Relation Status Comments Brother Father Mother Paternal Grandfather Social History Tobacco Use Types Packs/Day Years Used Date Smoking Tobacco: Every Day Cigarettes Smokeless Tobacco: Never Tobacco Cessation:Ready to Q uit: No; Counseling Given: Yes Alcohol Use Standard Drinks/Week Comments Yes 0 (1 standard drink = 0.6 oz pur e alcohol) a couple days a week PHQ-2 Answer Date Recorded PHQ-2 Score - If the patient scores above 3, please move on to questions 3-9 1 12/17/2019 Sex and Gender Information Value Date Recorded Sex Assigned at Not on file Legal Sex Male 3:34 PM CDT Gender Identity Not on file Sexual Orientation Not on file Last Filed Vital Signs Vital Sign Reading Time Taken Comments Blood Pressure 120/79 11/05/2021 10:40 PM CDT Pulse 98 11/05/2021 10:40 PM CDT Temperature 36.9 C (98.5 F) 11/05/2021 10:10 PM CDT Respiratory Rate 18 11/05/2021 10:40 PM CDT Oxygen Saturation 98% 11/05/2021 10:40 PM CDT Inhaled Oxygen Concentration - - Weight 80 kg (176 lb 5.9 oz) 11/05/2021 10:10 PM CDT Height 177.8 cm (5' 10 ) 11/05/2021 10:10 PM CDT Body Mass Index 25.31 11/05/2021 10:10 PM CDT Plan of Treatment Health Maintenance Due Date Last Done Comments Annual Physical 1988 Hepatitis C 09/13/2003 Hepatitis B Vaccines (1 of 3 - 19+ 3-dose series) 2004 Pneumococcal Vaccine: Pediatrics (0 to 5 Years) and At-Risk Patients (6 to 49 Years) (1 of 2 - PCV) 2004 COVID-19 Vaccine (2023-2 5 season) 2023 03/31/2021, 10/12/2020, 09/14/2020 DTaP, Tdap and Td Vaccines ( 2 - Td or Tdap) 10/06/2025 10/07/2015 HPV Vaccines Aged Out No longer eligi ble based on patient's age to complete this topic Meningococcal B Vaccine Aged Out No l onger eligible based on patient's age to complete this topic Meningococcal Vaccine Aged Out No alice astrid eligible based on patient's age to complete this topic RSV Immunizations Under 20 Months Aged Out No longer eligible b ased on patient's age to complete this topic Insurance [facility] Care Teams Physician Specialist Relationship Specialty Start Date End Date Layne Tong NP [address] [address] PCP - General Nurse Practitioner Family 11/26/19
--- OUTSIDE RECORDS SUMMARY | 2024-07-21 09:30 | XMS_ITS | Encounter Summary ---
Author Organization [facility] Address [address] [place] [address] Phone Care Team Providers Care Practical Nurse Name Role Phone Ran Thacker MD Primary Care Provider [phone] Milena Chakraborty Unavailable Unavailab Korey Mccloud MD Unavailable [phone] Fernando Camarillo MD Unavailable Reason for Visit * Reason Comments Medication Refill Encounter Details Date Type Department Care Team (Late st Contact Info) Description 05/23/2023 Refill [facility] Medical Group - Family Medicine [facility] #2 [place] [address] Ran Thacker MD #[address] [address] Medication Refill Social History Tobacco Use Types Packs/Day Years Used Date Smoking Tobacco: Never Smokeless Tobacco: Never Alcohol Use Standard Drinks/Week Comments Never 0 (1 standard drink = 0.6 oz pur e alcohol) [facility] Utilities Answer Date Recorded In the past 12 months has e electric, gas, oil, or water company [...] often do you attend chur ch or hinduism services? Never 04/03/2023 Do you belong to any clubs o r organizations such as scientology groups, unions, fraternal or athletic groups, or [...] Total Score - Questions 1-9 0 03/18 [facility] - Occupational Stress [...] place to sleep or slept in a prison (including now)? 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 Requested Prescriptions Pending Prescriptions Disp Refills desipramine (NORPRAMIN) 25 MG Tablet [Pharmacy Med Name: DESIPRAMINE 25MG TABLETS] 120 Tablet 0 Sig: TAKE 4 TABLETS BY MOUTH EVERY NIGHT Not Delegated - Tricyclic Agents Protocol Failed - 05/23/2023 5:16 AM Failed - This refill cannot be [...] 90 days and meeting all other requirements GHT ELEVATOR ERECTOR documented in this encounter Plan of Treatment Upcoming Encounters Date Type Department Care Team (Ricardo medrano Contact Info) Description 07/23/2024 2:45 PM CDT Physical Therapy [facility] at [facility] 200 [facility], [address] [address] William Harrison MD 36[address] [facility] [address] [place] [address] Evie Arechiga, PT [place] Discharge Disposition: Discharged to home or Selfcare 09/03/2024 8:30 AM CDT [facility] [address] [place] [address] Donna Michel August, PAC [address] [place] [address] Discharge Disposition: Discharged to home or Selfcare 09/03/2024 9:40 AM CDT [facility] [address] [place] [address] Donna Michel August, PAC [address] [place] [address] Renan Hernandez MD [address] [place] [address] Discharge Disposition: Discharged to home or Selfcare 09/03/2024 10:30 AM CDT Clinical Support [facility] Oncology Services [address] [place] [address] Donna Michel August, PAC [address] [place] [address] Discharge Disposition: Discharged to home or Selfcare 09/14/2024 10:45 AM CDT Office Visit [facility] Medical Group - Family [facility] #2 [place] [address] Ran Thacker MD #2 [facility] [address] [place] [address] documented as of this encounter Visit Diagnoses Not on filedocumented in this encounter Additional Health Concerns Assessment Noted Time PHQ-9 Depression Total Score: 0 04/03/19 9:52 AM 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
--- OUTSIDE RECORDS SUMMARY | 2024-07-21 09:30 | XMS_ITS | Encounter Summary ---
Author Organization [facility] Address [address] [place] [address] Phone Care Team Providers Care Manager Private Name Role Phone Ran Thacker MD Primary Care Provider [phone] Milena Chakraborty Unavailable Unavailab Milena Pollard Unavailable Unavailab Korey Mccloud MD Unavailable [phone] Fernando Camarillo MD Unavailable Reason for Visit * Reason Comments Medication Refill Encounter Details Date Type Department Care Team (Late st Contact Info) Description 01/28/2023 Refill [facility] Medical Group - Family Medicine [facility] #2 [place] [address] Ran Thacker MD #[address] [address] Medication Refill Social History Tobacco Use Types Packs/Day Years Used Date Smoking Tobacco: Never Alcohol Use Standard Drinks/Week Comments [...] Coronavirus/COVID-19? No / Unsure 01/25/2023 9:16 AM COMPLIANCE TECHNICIAN documented as of this encounter Miscellaneous Notes * Telephone Encounter - Ran Thacker MD - 01/28/2023 4:00 PM COMPLIANCE TECHNICIAN Thanks for clarifying this! I removed Tizanidine from his med list :) LIANCE TECHNICIAN * Telephone Encounter - Nakia Davis RN - 01/28/2023 3:57 PM CST Regarding your note - Patient wants to stay on the Baclofen. Please discontinue the Tizanidine. Medication failed the protocol, provider to review and approve the medication order if appropriate. Requested Prescriptions Pending Prescriptions Disp Refills baclofen (LIORESAL) 10 MG Tablet [Pharmacy Med Name: BACLOFEN 10MG TABLETS] 90 Tablet 0 Sig: TAKE 1 TABLET BY MOUTH THREE TIMES DAILY Not Delegated - Muscle Relaxants Protocol Failed - 01/28/2023 12:46 PM Failed - This refill cannot be [...] 90 days and meeting all other requirements Refused Prescriptions Disp Refills tiZANidine (ZANAFLEX) 4 MG Tablet [Pharmacy Med Name: TIZANIDINE 4MG TABLETS] 30 Tablet 0 Sig: TAKE 1/2 TABLET BY MOUTH TWICE DAILY Not Delegated - Muscle Relaxants Protocol Failed - 01/28/2023 12:46 PM Failed - This refill cannot be delegated Passed - Visit with relevant provider in past 12 months or upcoming 90 days Recent Visits Date Type Provider Dept 12/27/22 Office Visit Ran Thacker MD [facility] Showing recent visits within past 365 days and meeting all other requirements Future Appointments Date Type Provider Dept 04/04/23 Appointment Ran Thacker MD [facility] Showing future appointments within next 90 days and meeting all other requirements Passed - ALT less than 90 and AST less than 55 on record in past 12 months SGOT (AST) Date Value Ref Range Status 12/27/2022 14 5 - 34 U/L Final SGPT (ALT) Date Value Ref Range Status 12/27/2022 26 0 - 55 U/L Final LIANCE TECHNICIAN documented in this encounter Plan of Treatment Upcoming Encounters Date Type Department Care Team (Late st Contact Info) Description 07/23/2024 2:45 PM CDT Physical Therapy [facility] Rehab at [facility] [address] [address] William Harrison MD [address] [address] Evie Arechiga, PT [place] Discharge Disposition: Discharged to home or Selfcare 09/03/2024 8:30 AM CDT Lab [facility] [address] [place] [address] Donna Michel August, PAC [address] [place] [address] Discharge Disposition: Discharged to home or Selfcare 09/03/2024 9:40 AM CDT Office Visit [facility] Oncology Services [address] [place] [address] Donna Michel August, PAC [address] [place] [address] Renan Hernandez MD [address] [place] [address] Discharge Disposition: Discharged to home or Selfcare 09/03/2024 10:30 AM CDT Clinical [facility] [address] [place] [address] Donna Michel, PAC [address] [place] [address] Discharge Disposition: Discharged to home or Selfcare 09/14/2024 10:45 AM CDT Office Visit [facility] Medical Group - Family [facility] #2 [place] [address] Ran Thacker MD #[address] [address] documented as of this encounter Visit Diagnoses Not on filedocumented in this encounter Additional Health Concerns Infection Onset Date Last Indicated Resolved Time COVID - 19 03/28/2023 03/28/2023 04/07/2023 12:1 6 AM COMPLIANCE TECHNICIAN documented as of this encounter Care Teams Manager Private Relationship Specialty Start Date End Date Ran Thacker MD #[address] [address] PCP - General Family Medicine 11/30/22 Milena Chakraborty LSW [place] Security And Privacy Consultant 12/27/22 04/03/23 Milena Chakraborty LSW [place] Senior Technical Trainer Security And Privacy Consultant 12/27/22 06/24/23 Korey Matute MD #2 [place] [address] Consulting Physician Neurology 02/01/23 Fernando Camarillo MD #2 [facility] [address] [place] [address] Consulting Physician Colon and Rectal Surgery 01/31/24 documented as of this encounter
--- OUTSIDE RECORDS SUMMARY | 2024-07-21 09:30 | XMS_ITS | Encounter Summary ---
Author Organization [facility] Address [address] [place] [address] Phone Care Team Providers Care Rehab Trainer Name Role Phone Ran Thacker MD Primary Care Provider [phone] Milena Chakraborty Unavailable Unavailab Korey Mccloud MD Unavailable [phone] Fernando Camarillo MD Unavailable Reason for Visit * Reason Comments Medication Refill Encounter Details Date Type Department Care Team (Late st Contact Info) Description 04/23/2023 Refill [facility] Medical Group - Family Medicine [facility] #2 [place] [address] Ran Thacker MD #[address] [address] Medication Refill Social History Tobacco Use Types Packs/Day Years Used Date Smoking Tobacco: Never Smokeless Tobacco: Never Alcohol Use Standard Drinks/Week Comments Never 0 (1 standard drink = 0.6 oz pur e alcohol) [facility] Utilities Answer Date Recorded In [...] often do you attend chur ch or anglican services? Never 04/03/2023 Do you belong to any clubs o r organizations such as quaker groups, unions, fraternal or athletic groups, or [...] Total Score - Questions 1-9 0 03/18 [facility] Occupat ional Health - Occupational [...] place to sleep or slept in a residential (including now)? No 04/03/2023 Sex and Gender Information Value Date Recorded Sex Assigned at Not on file Legal Sex Male 10:13 AM CDT Gender Identity Not on file Sexual Orientation Not on file documented as of this encounter Miscellaneous Notes * Telephone Encounter - Maite White RMA - 04/24/2023 12:47 PM RAILROAD SIGNAL AND SWITCH OPERATOR Pt declined, states is fine ROAD SIGNAL AND SWITCH OPERATOR * Telephone Encounter - Nakia Davis RN - 04/23/2023 1:52 PM CST Medication failed the protocol, provider to review and approve the medication order if appropriate. Requested Prescriptions Pending Prescriptions Disp Refills gabapentin (NEURONTIN) 300 MG Capsule [Pharmacy Med Name: GABAPENTIN 300MG CAPSULES] 90 Capsule 0 Sig: TAKE 1 CAPSULE BY MOUTH EVERY 8 HOURS Not Delegated - Anticonvulsants Excluding Benzodiazepines Protocol Failed - 04/23/2023 12:05 PM Failed - This refill cannot be delegated Passed - Visit with relevant provider in past 12 months or upcoming 90 days Recent Visits Date Type Provider Dept 04/04/23 Office Visit Ran Thacekr MD [facility] 12/27/22 Office Visit Ran Thacker MD [facility] Showing recent visits within past 365 days and meeting all other requirements Future Appointments Date Type Provider Dept 07/11/23 Appointment Ran Thacker MD [facility] Showing future appointments within next 90 days and meeting all other requirements ROAD SIGNAL AND SWITCH OPERATOR * Telephone Encounter - Ran Thacker MD - 04/23/2023 12:04 PM RAILROAD SIGNAL AND SWITCH OPERATOR Schedule him for telephone visit with me for Urgent Care follow-up this week. Thanks! ROAD SIGNAL AND SWITCH OPERATOR documented in this encounter Plan of Treatment Upcoming Encounters Date Type Department Care Team (Late st Contact Info) Description 07/23/2024 2:45 PM CDT Physical Therapy [facility] Rehab at [facility] 200 [facility], [address] [address] William Harrison MD [address] [address] Evie Arechiga, PT [place] Discharge Disposition: Discharged to home or Selfcare 09/03/2024 8:30 AM CDT Lab [facility] [address] [place] [phone] Donna Michel August, PAC [address] [place] [address] Discharge Disposition: Discharged to home or Selfcare 09/03/2024 9:40 AM CDT Office Visit [facility] Oncology Services [address] [place] [address] Donna Michel August, PAC [address] [place] [address] Renan Hernandez MD [address] [place] [address] Discharge Disposition: Discharged to home or Selfcare 09/03/2024 10:30 AM CDT [facility] [address] [place] [address] Donna Michel, PAC [address] [place] [address] Discharge Disposition: Discharged to home or Selfcare 09/14/2024 10:45 AM CDT Office Visit [facility] Medical Group - Family [facility] #2 [place] [address] Ran Thacker MD #[address] [address] documented as of this encounter Visit Diagnoses Not on filedocumented in this encounter Additional Health Concerns Assessment Noted Time PHQ-9 Depression Total Score: 0 04/03/19 9:52 AM RAILROAD SIGNAL AND SWITCH OPERATOR documented as of this encounter Care Teams Rehab Trainer Relationship Specialty Start Date End Date Ran Thacker MD #[address] [address] PCP - General Family Medicine 11/30/22 Milena Chakraborty, [facility] Safety Manager Carpenter Form 12/27/22 06/24/23 Korey Matute MD #2 [place] [address] Consulting Physician Neurology 02/01/23 Fernando Camarillo MD #[address] [address] Consulting Physician Colon and Rectal Surgery 01/31/24 documented as of this encounter
--- OUTSIDE RECORDS SUMMARY | 2024-07-21 09:30 | XMS_ITS | Encounter Summary ---
Author Organization [facility] Address [address] [facility] [place] [address] Care Team Providers Care Display Screen Fabricator Name Role Phone Ran Thacker MD Primary Care Provider [phone] Reason for Visit * Reason Onset Date Comments Appointment 11/21/2023 Encounter Details Date Type Department Care Team (Late st Contact Info) Description 11/21/2023 Telephone [facility] - Centralized Scheduling [address] [place] [phone] William Harrison MD [address] [address] Appointment Social History Tobacco Use Types Packs/Day Years Used Date Smoking Tobacco: Former Cigarettes Q uit: 11/06/2021 Smokeless Tobacco: Never Alcohol Use Standard Drinks/Week [...] AM CDT Sexual Orientation Not on file documented as of this encounter Functional Status * Is person deaf or have serious hearing difficulty? Answer Date of Assessment Author No 11/06/2021 6:15 AM CDT Margaux Donald RN * Is person blind or have serious difficulty seeing? Answer Date of Assessment Author No 11/06/2021 6:15 AM CDT Margaux Donald RN * Does person have serious difficulty walking/climbing stairs? Answer Date of Assessment Author No 11/06/2021 6:15 AM CDT Margaux Donald RN * Does person have difficulty dressing/bathing? Answer Date of Assessment Author No 11/06/2021 6:15 AM DALIT Margaux Donald RN * Does person have difficulty doing errands alone? Answer Date of Assessment Author No 11/06/2021 6:15 AM Margaux Dimas RN documented as of this encounter Mental Status * Does person have difficulty concentrating/remembering/making decisions? Answer Entry Date Author No 11/06/2021 6:15 AM Margaux Dimas RN documented in this encounter Miscellaneous Notes * Telephone Encounter - Kasandra Santos - 11/21/2023 8:07 AM CDT Patient's mother called to reschedule the patient's botox appt on 12/02 teither sooner or later date. documented in this encounter Plan of Treatment Upcoming Encounters Date Type Department Care Team (Late st Contact Info) Description 09/01/2024 10:30 AM CDT Procedure visit [facility] - Neurology [address] [place] [phone] William Harrison MD [address] [place] [address] [place] [address] 10/29/2024 10:30 AM CDT Office Visit [facility] Physician Group - Orthopedics [address] [place] [address] Baltazar Gonzales MD [address] [place] [address] DIV [place] [address] 12/01/2024 2:30 PM CDT Procedure visit [facility] - Neurology [address] [place] [address], [place] [address] William Harrison MD [address] [place] [address] [place] [phone] documented as of this encounter Visit Diagnoses Not on filedocumented in this encounter Care Teams Display Screen Fabricator Relationship Specialty Start Date End Date Ran Thacker MD [address] [address] PCP - General Family Medicine 06/20/23 documented as of this encounter
--- OUTSIDE RECORDS SUMMARY | 2024-07-21 09:30 | XMS_ITS | Encounter Summary ---
Author Organization [facility] Address [address] [place] [address] Phone Care Team Providers Care Plywood And Veneer Repairer Name Role Phone Ran Thacker MD Primary Care Provider [phone] Milena Chakraborty Unavailable Unavailab Korey Mccloud MD Unavailable [phone] Fernando Camarillo MD Unavailable Reason for Visit * Reason Comments Medication Refill Encounter Details Date Type Department Care Team (Late st Contact Info) Description 04/25/2023 Refill [facility] Medical Group - Family Medicine [facility] #2 [place] [address] Ran Thacker MD #[address] [address] Medication Refill Social History Tobacco Use Types Packs/Day Years Used Date Smoking Tobacco: Never Smokeless Tobacco: Never Alcohol Use Standard Drinks/Week Comments Never 0 (1 standard drink = 0.6 oz pur e alcohol) [facility] Utilities Answer Date Recorded In the past [...] often do you attend chur ch or orthodoxy services? Never 04/03/2023 Do you belong to any clubs o r organizations such as adventist groups, unions, fraternal or athletic groups, or [...] Telephone Encounter - Nakia Davis RN - 04/25/2023 11:29 AM CST Needs lab work prior to refill. DLE CUT OFF SAW OPERATOR documented in this encounter Plan of Treatment Upcoming Encounters Date Type Department Care Team (Late st Contact Info) Description 07/23/2024 2:45 PM CDT [facility] [address] [address] William Harrison MD [address] [facility] [address] [place] [address] Evie Arechiga, PT [place] Discharge Disposition: Discharged to home or Selfcare 09/03/2024 8:30 AM CDT [facility] [address] [place] [address] Donna Michel, PAC [address] [place] [address] Discharge Disposition: Discharged to home or Selfcare 09/03/2024 9:40 AM CDT Office Visit [facility] Oncology Services [address] [place] [address] MichelDonna August, PAC [address] [place] [address] Renan Hernandez MD 0 [place] [address] Discharge Disposition: Discharged to home or Selfcare 09/03/2024 10:30 AM CDT Clinical Support [facility] Oncology Services [address] [place] [address] [facility] August, PAC [address] [place] [address] Discharge Disposition: Discharged to home or Selfcare 09/14/2024 10:45 AM CDT Office Visit [facility] Medical Group - Family Medicine [facility] #2 [place] [address] Ran Thacker MD #[address] [address] documented as of this encounter Visit Diagnoses Not on filedocumented in this encounter Additional Health Concerns Assessment Noted Time PHQ-9 Depression Total Score: 0 04/03/19 24 9:52 AM TREADLE CUT OFF SAW OPERATOR documented as of this encounter Care Teams Plywood And Veneer Repairer Relationship Specialty Start Date End Date Ran Thacker MD #[address] [address] PCP - General Family Medicine 11/30/22 Milena Chakraborty LSW [place] Production Machine Shop Supervisor Sales Agent Insurance 12/27/22 06/24/23 Korey Matute MD #2 [place] [address] Consulting Physician Neurology 02/01/23 Fernando Camarillo MD #[address] [address] Consulting Physician Colon and Rectal Surgery 01/31/24 documented as of this encounter
--- OUTSIDE RECORDS SUMMARY | 2024-07-21 09:30 | XMS_ITS | Encounter Summary ---
Author Organization [facility] Address [address] [place] [address] Phone Care Team Providers Care Wardrobe Mistress Name Role Phone Ran Thacker MD Primary Care Provider [phone] Milena Chakraborty Unavailable Unavailab Milena Pollard Unavailable Unavailab Korey Mccloud MD Unavailable [phone] Fernando Camarillo MD Unavailable Reason for Visit * Reason Comments Medication Refill Encounter Details Date Type Department Care Team (Late st Contact Info) Description 02/21/2023 Refill [facility] - Family [facility] #2 [place] [address] Ran Thacker MD #[address] [address] Medication Refill Social History Tobacco Use Types [...] Coronavirus/COVID-19? No / Unsure 01/25/2023 9:16 AM RESISTOR INSPECTOR documented as of this encounter Miscellaneous Notes * Telephone Encounter - Nakia Davis RN - 02/22/2023 7:53 AM CST Medication failed the protocol, provider to review and approve the medication order if appropriate. Requested Prescriptions Pending Prescriptions Disp Refills baclofen (LIORESAL) 10 MG Tablet [Pharmacy Med Name: BACLOFEN 10MG TABLETS] 90 Tablet 0 Sig: Take 1 Tablet by mouth 3 times daily. Not Delegated - Muscle Relaxants Protocol Failed - 02/21/2023 9:31 AM Failed - This refill cannot be [...] 90 days and meeting all other requirements desipramine (NORPRAMIN) 25 MG Tablet [Pharmacy Med Name: DESIPRAMINE 25MG TABLETS] 120 Tablet 0 Sig: TAKE 4 TABLETS BY MOUTH EVERY NIGHT Not Delegated - Tricyclic Agents Protocol Failed - 02/21/2023 9:31 AM Failed - This refill cannot be [...] 90 days and meeting all other requirements STOR INSPECTOR documented in this encounter Plan of Treatment Upcoming Encounters Date Type Department Care Team (Late st Contact Info) Description 07/23/2024 2:45 PM CDT Physical Therapy [facility] at [facility] [address], [address] [place] [address] William Harrison MD [address] [address] Evie Arechiga, PT [place] Discharge Disposition: Discharged to home or Selfcare 09/03/2024 8:30 AM CDT [facility] [address] [place] [address] MichelDonna August, PAC [address] [place] [address] Discharge Disposition: Discharged to home or Selfcare 09/03/2024 9:40 AM CDT Office Visit [facility] [address] [place] [address] MichelDonna August, PAC [address] [place] [address] Renan Hernandez MD [address] [place] [address] Discharge Disposition: Discharged to home or Selfcare 09/03/2024 10:30 AM CDT Clinical Support [facility] Oncology Services [address] [place] [address] New OrleansDonna Meghna, PAC [address] [place] [address] Discharge Disposition: Discharged to home or Selfcare 09/14/2024 10:45 AM CDT Office Visit [facility] - Family [facility] [address]2 [place] [address] Ran Thacker MD #[address] [address] documented as of this encounter Visit Diagnoses Not on filedocumented in this encounter Additional Health Concerns Infection Onset Date Last Indicated Resolved Time COVID - 19 03/28/2023 03/28/2023 04/07/2023 12:1 6 AM RESISTOR INSPECTOR documented as of this encounter Care Teams Wardrobe Mistress Relationship Specialty Start Date End Date Ran Thacker MD #[address] [address] PCP - General Family Medicine 11/30/22 Milena Chakraborty LSW [place] Payable Processor 12/27/22 04/03/23 Milena Chakraborty LSW [place] Desolderer Payable Processor 12/27/22 06/24/23 Korey Matute MD #2 [place] [address] Consulting Physician Neurology 02/01/23 Fernando Camarillo MD #[address] [address] Consulting Physician Colon and Rectal Surgery 01/31/24 documented as of this encounter
--- OUTSIDE RECORDS SUMMARY | 2024-07-21 09:30 | XMS_ITS | Encounter Summary ---
Author Organization [facility] Address [address] [place] [address] Phone Care Team Providers Care Multiple Knife Edge Trimmer Operator Name Role Phone Ran Thacker MD Primary Care Provider [phone] Milena Chakraborty Unavailable Unavailab Milena Pollard Unavailable Unavailab Korey Mccloud MD Unavailable [phone] Fernando Camarillo MD Unavailable Reason for Visit * Reason Comments Medication Refill Encounter Details Date Type Department Care Team (Late st Contact Info) Description 03/24/2023 Refill [facility] - Family Medicine [facility] #2 [place] [address] Ran Thacker MD #[address] [address] Medication Refill Social History Tobacco Use Types [...] Telephone Encounter - Jaycee Soto RN - 03/24/2023 5:46 PM LOAN SERVICING SPECIALIST Medication failed the protocol, provider to review and approve the medication order if appropriate. Requested Prescriptions Pending Prescriptions Disp Refills gabapentin (NEURONTIN) 300 MG Capsule [Pharmacy Med Name: GABAPENTIN 300MG CAPSULES] 90 Capsule 0 Sig: TAKE 1 CAPSULE BY MOUTH EVERY 8 HOURS Not Delegated - Anticonvulsants Excluding Benzodiazepines Protocol Failed - 03/24/2023 5:16 AM Failed - This refill cannot be delegated Passed - Visit with relevant provider in past 12 months or upcoming 90 days Recent Visits Date Type Provider Dept 12/27/22 Office Visit Ran Thacker MD [facility] Showing recent visits [...] Delegated - Tricyclic Agents Protocol Failed - 03/24/2023 5:16 AM Failed - This refill cannot [...] 90 days and meeting all other requirements SERVICING SPECIALIST documented in this encounter Plan of Treatment Upcoming Encounters Date Type Department Care Team (Late st Contact Info) Description 07/23/2024 2:45 PM CDT Physical Therapy [facility] at [facility] [address], [facility] [address] [place] [address] William Harrison MD [address] [facility] [address] [place] [address] Evie Arechiga, PT [place] Discharge Disposition: Discharged to home or Selfcare 09/03/2024 8:30 AM CDT Lab [facility] Services [address] [place] [address] Michel Donna August, PAC [address] [place] [address] Discharge Disposition: Discharged to home or Selfcare 09/03/2024 9:40 AM CDT Office Visit [facility] [address] [place] [address] MichelDonna August, PAC [address] [place] [address] Renan Hernandez MD [address] [place] [address] Discharge Disposition: Discharged to home or Selfcare 09/03/2024 10:30 AM CDT Clinical Support [facility] Oncology Services [address] [place] [address] Michel Donna June, PAC [address] [place] [address] Discharge Disposition: Discharged to home or Selfcare 09/14/2024 10:45 AM CDT Office Visit [facility] - Family Medicine [facility] #2 [place] [address] Ran Thacker MD [address] [address] documented as of this encounter Visit Diagnoses Not on filedocumented in this encounter Additional Health Concerns Infection Onset Date Last Indicated Resolved Time COVID - 19 03/28/2023 03/28/2023 04/07/2023 12:1 6 AM LOAN SERVICING SPECIALIST documented as of this encounter Care Teams Multiple Knife Edge Trimmer Operator Relationship Specialty Start Date End Date Ran Thacker MD #[address] [address] PCP - General Family Medicine 11/30/22 Milena Chakraborty LSW [place] Crap Game Box Person 12/27/22 04/03/23 Milena Chakraborty LSW [place] Deburring And Tooling Machine Operator Crap Game Box Person 12/27/22 06/24/23 Korey Matute MD #2 [place] [address] Consulting Physician Neurology 02/01/23 Fernando Camarillo MD #[address] [address] Consulting Physician Colon and Rectal Surgery 01/31/24 documented as of this encounter
--- OUTSIDE RECORDS SUMMARY | 2024-07-21 09:30 | XMS_ITS | Encounter Summary ---
Author Organization [facility] Address [address] [place] [address] Phone Care Team Providers Care Lens Gauger Name Role Phone Ran Thacker MD Primary Care Provider [phone] Korey Matute MD Unavailable Fernando Camarillo MD Unavailable Reason for Visit * Reason Onset Date Comments Medication Management 01/10/2024 Encounter Details Date Type Department Care Team (Late st Contact Info) Description 01/10/2024 Telephone [facility] [address] [place] [address] Ran Thacker MD #[address] [address] Medication Management Social History Tobacco Use Types Packs/Day Years Used Date Smoking Tobacco: Former Cigarettes Smokeless Tobacco: Never Alcohol Use Standard Drinks/Week Comments Not Currently 0 (1 standard drink = 0.6 oz pur e alcohol) [facility] Utilities Answer Date Recorded In the past 12 months has [employer], gas, oil, or water company threatened to [...] How often do you attend chur or holiness services? Patient declined 01/08/2024 Do you belong to any clubs o r organizations such as orthodox groups, unions, fraternal or athletic groups, or [...] Total Score - Questions 1-9 0 09/16 [facility] [place] of Occupat ional Health - Occupational Stress [...] place to sleep or slept in a senior care (including now)? No 04/03/2023 Housing Stability Vital Sign Answer Mookie e Recorded In the last 12 months, was t here a time when you were not able to pay the mortgage or rent on time? No 01/08/2024 In the past 12 months, how m any times have you moved where you were living? 0 01/08/2024 At any time in the past 12 [facility], were you homeless or living in a senior care (including now)? No 01/08/2024 Sex and Gender Information Value Date Recorded Sex Assigned at Not on file Legal Sex Male 10:13 AM CDT Gender Identity Not on file Sexual Orientation Not on file documented as of this encounter Miscellaneous Notes * Telephone Encounter - Nakia Davis RN - 01/10/2024 11:54 AM CDT Oxy pended - baclofen pended in another encounter * Telephone Encounter - Marquita Keane RN - 01/10/2024 10:28 AM CDT Situation: [facility] verified calling regarding medication refills Background: Mitch Frias 1985 contact phone # [phone] Callers concern: Medication refills Action: Name of Medication: Baclofen Dose: 10mg Frequency: three times daily Route: Oral Directions: N/A Ordering Provider: Dr. Thacker Pharmacy: [place], [place] Name of Medication: Oxycodone-Acetaminophen Dose: 10-325 Frequency: Twice daily as needed Route: Oral Directions: Take twice daily as needed Ordering Provider: Dr. Thacker Pharmacy: [facility] in [place], [place] Recommendation: Route high priority to surescripts pool. documented in this encounter Plan of Treatment Upcoming Encounters Date Type Department Care Team (Late st Contact Info) Description 07/23/2024 2:45 PM CDT Physical Therapy [facility] Re[facility] at [facility] 200 [facility], [address] [address] William Harrison MD [address] [address] Evie Arechiga, PT [place] Discharge Disposition: Discharged to home or Selfcare 09/03/2024 8:30 AM CDT [facility] [address] [place] [address] Donna Michel Meghna, PAC [address] [place] [address] Discharge Disposition: Discharged to home or Selfcare 09/03/2024 9:40 AM CDT Office Visit [facility] [address] [place] [address] Donna Michel Meghna, PAC [address] [place] [address] Renan Hernandez MD [address] [place] [address] Discharge Disposition: Discharged to home or Selfcare 09/03/2024 10:30 AM CDT Clinical Support [facility] [address] [place] [address] Donna Michel Meghna, [facility] [address] [place] [address] Discharge Disposition: Discharged to home or Selfcare 09/14/2024 10:45 AM CDT [facility] [place] [place] #2 [place] [address] Ran Thacker MD #[address] [address] documented as of this encounter Visit Diagnoses Diagnosis History of back surgery Other postprocedural status Chronic bilateral thoracic back pain documented in this encounter Additional Health Concerns Assessment Noted Time PHQ-9 Depression Total Score: 0 10/10/19 1:23 PM CDT documented as of this encounter Care Teams Lens Gauger Relationship Specialty Start Date End Date Ran Thacker MD #[address] [address] PCP - General Family Medicine 11/30/22 Korey Matute MD #2 [place] [address] Consulting Physician Neurology 02/01/23 Fernando Camarillo MD #[address] [address] Consulting Physician Colon and Rectal Surgery 01/31/24 documented as of this encounter
--- OUTSIDE RECORDS SUMMARY | 2024-07-21 09:30 | XMS_ITS | Encounter Summary ---
Author Organization [facility] Address [address] [place] [address] Phone Care Team Providers Care Deburring And Tooling Machine Operator Name Role Phone Ran Thacker MD Primary Care Provider [phone] Korey Matute MD Unavailable [phone] Fernando Camarillo MD Unavailable Reason for Visit * Reason Comments Medication Refill Encounter Details Date Type Department Care Team (Late st Contact Info) Description 12/18/2023 Refill [facility] Group - Family Medicine [facility] #2 [place] [address] Ran Thacker MD #[address] [id number] Medication Refill Social History Tobacco Use Types Packs/Day Years Used Date Smoking Tobacco: Former Cigarettes Smokeless Tobacco: Never Alcohol Use Standard Drinks/Week Comments Not Currently 0 (1 standard drink = 0.6 oz pur e alcohol) [facility] Utilities Answer Date Recorded In the past 12 months has [employer], gas, oil, or water [employer] threatened to shut off services in your [...] any clubs o r organizations such as confucianism groups, unions, fraternal or athletic groups, or [...] Total Score - Questions 1-9 0 09/16 [facility] [place] of Occupat ional Health - Occupational Stress [...] encounter Miscellaneous Notes * Telephone Encounter - Estelle Beard MA - 12/19/2023 2:28 PM CDT Jose's parents were informed of lab order. * Telephone Encounter - Ran Thacker MD - 12/19/2023 10:22 AM CDT Tell him to get a Vit. D lab done (nonfasting) before getting refills on this. Lab order entered. Thanks! * Telephone Encounter - Nakia Davis RN - 12/19/2023 9:55 AM CDT Vitamin D last check in August Medication failed the protocol, provider to review and approve the medication order if appropriate. Requested Prescriptions Pending Prescriptions Disp Refills ergocalciferol (VITAMIN D) [address] UNIT Capsule [Pharmacy Med Name: VITAMIN D2 50,000IU (ERGO) CAP RX] 12 Capsule 0 Sig: TAKE 1 CAPSULE BY MOUTH 1 TIME A WEEK FOR 12 DOSES Vitamin Supplements (Adult) Protocol Failed - 12/18/2023 10:12 AM Failed - Vitamin D dose not greater than 1.25mg Passed - Visit with relevant provider in past 12 months or upcoming 90 days Recent Visits Date Type Provider Dept 12/05/23 Telemedicine Ran Thacker MD [facility] 10/10/23 Office Visit Ran Thacker MD [facility] 08/08/23 Telemedicine Ran Thacker MD [facility] 07/11/23 Office Visit Ran Thacker MD [facility] 07/04/23 Telemedicine Ran Thacker MD [facility] 04/04/23 Office Visit Ran Thacker MD [facility] 12/27/22 Office Visit Ran Thacker MD [facility] Showing recent visits within past 365 days and meeting all other requirements Future Appointments Date Type Provider Dept 01/08/24 Appointment Ran Thacker MD [facility] Showing future appointments within next 90 days and meeting all other requirements documented in this encounter Plan of Treatment Upcoming Encounters Date Type Department Care Team (Late st Contact Info) Description 07/23/2024 2:45 PM CDT Physical Therapy [facility] at [address] [address] William Harrison MD [address] [facility] [address] [place] [address] Evie Arechiga, PT [place] Discharge Disposition: Discharged to home or Selfcare 09/03/2024 8:30 AM CDT [facility] [address] [place] [address] Donna Michel, PAC [address] [place] [address] Discharge Disposition: Discharged to home or Selfcare 09/03/2024 9:40 AM CDT [facility] [address] [place] [address] Donna Michel August, PAC [address] [place] [address] Renan Hernandez MD [address] [place] [address] Discharge Disposition: Discharged to home or Selfcare 09/03/2024 10:30 AM CDT [facility] [address] [place] [address] Donna Michel August, PAC [address] [place] [address] Discharge Disposition: Discharged to home or Selfcare 09/14/2024 10:45 AM CDT Office Visit [facility] Medical Group - Family Medicine [facility] #[address] [place] [address] Ran Thacker MD #[address] [address] documented as of this encounter Results * VITAMIN D, 25 HYDROXY TOTAL (01/09/2024 10:20 AM CDT) VITAMIN D, 25 HYDROX 33.4 ng/mL 01/09/2024 11:30 AM CDT [facility] Blood Venipuncture / Unknown 01/09/2024 10:20 AM CDT 01/09/2024 10:45 AM CDT Narrative [facility] - 01/09/2024 11:30 AM CDT Published reference ranges for Vitamin D vary depending on time and place and method of testing, and on patient's age, sex, ethnicity and levels of other measured analytes such as parathormone, calcium and phosphorus. The result should be evaluated in conjunction with clinical findings and suspicions. [place] of [facility] and Endocrine Clinical Practice Guidelines: Status Vitamin D levels (ng/mL) Deficient <=20 At risk of inadequacy 21-29 Sufficient 30-100 Centers of Disease Control and Prevention Guidelines: Status Vitamin D levels (ng/mL) Deficient <13 At risk of inadequacy 13-19 Sufficient 20-50 Possibly harmful >50 References: [place] [employer], 2010 Dietary reference intakes for calcium and vitamin D. [place]: The National Academies Press. Vicente M, Evelia N, Kristine BURNS, et al., Evaluation, treatment, and prevention of Vitamin D deficiency: an Endocrinology Clinical Practice Guideline. JCEM 2011 96: 7 2452-2250. Eliseo A, Barry C, Arnulfo D, et al., Vitamin D Status: [place], , [facility] data brief, no. 59, [place]: National Center for Health Statistics. 2011. Ran Thacker MD CHEMISTRY ORDERABLES Estella salazar Result [facility] #[address] [place] [address] documented in this encounter Visit Diagnoses Diagnosis Vitamin D deficiency Unspecified vitamin D deficiency documented in this encounter Additional Health Concerns Assessment Noted Time PHQ-9 Depression Total Score: 0 10/10/19 24 1:23 PM CDT documented as of this encounter Care Teams Deburring And Tooling Machine Operator Relationship Specialty Start Date End Date Ran Thacker MD #[address] [address] PCP - General Family Medicine 11/30/22 Korey Matute MD #2 [place] [address] Consulting Physician Neurology 02/01/23 Fernando Camarillo MD #2 [place] [address] Consulting Physician Colon and Rectal Surgery 01/31/24 documented as of this encounter
--- OUTSIDE RECORDS SUMMARY | 2024-07-21 09:30 | XMS_ITS | Encounter Summary ---
Author Organization [facility] Address [address] [place] [address] Phone Care Team Providers Care Doll Eye Setter Name Role Phone Ran Thacker MD Primary Care Provider [phone] Korey Matute MD Unavailable [phone] Fernando Camarillo MD Unavailable Reason for Visit * Reason Comments Medication Refill Encounter Details Date Type Department Care Team (Late st Contact Info) Description 07/29/2023 Refill [facility] - Family Medicine [facility] #2 [place] [address] Ran Thacker MD #[address] [address] Medication Refill Social History Tobacco Use Types Packs/Day Years Used Date Smoking Tobacco: Former Cigarettes Smokeless Tobacco: Never Alcohol Use Standard Drinks/Week Comments Not Currently 0 (1 standard drink = 0.6 oz pur e alcohol) [facility] Utilities Answer Date Recorded In the past 12 months has [employer], gas, oil, or water [employer] threatened to shut off services in your [...] often do you attend chur ch or druze services? Never 04/03/2023 Do you belong to any clubs o r organizations such as bahai groups, unions, fraternal or athletic groups, or [...] Total Score - Questions 1-9 0 03/18 [facility] [place] of Occupat ional Health - Occupational Stress [...] place to sleep or slept in a penitentiary (including now)? No 04/03/2023 Sex and Gender Information Value Date Recorded Sex Assigned at Not on file Legal Sex Male 10:13 AM CDT Gender Identity Not on file Sexual Orientation Not on file documented as of this encounter Miscellaneous Notes * Telephone Encounter - Nakia Davis RN - 07/29/2023 4:32 PM CDT Medication failed the protocol, provider to review and approve the medication order if appropriate. Requested Prescriptions Pending Prescriptions Disp Refills gabapentin (NEURONTIN) 300 MG Capsule [Pharmacy Med Name: GABAPENTIN 300MG CAPSULES] 90 Capsule 0 Sig: Take 1 Capsule by mouth every 8 hours. Not Delegated - Anticonvulsants Excluding Benzodiazepines Protocol Failed - 07/29/2023 10:07 AM Failed - This refill cannot be [...] requirements Future Appointments Date Type Provider Dept 10/10/23 Appointment Ran Thacker MD [facility] Showing future appointments within next 90 days and meeting all other requirements documented in this encounter Plan of Treatment Upcoming Encounters Date Type Department Care Team (Late st Contact Info) Description 07/23/2024 2:45 PM CDT Physical Therapy [facility] at [facility] [address], [address] [place] [address] William Harrison MD [address] [address] Evie Arechiga, PT [place] Discharge Disposition: Discharged to home or Selfcare 09/03/2024 8:30 AM CDT [facility] [address] [place] [address] Donna Michel August, PAC [address] [place] [address] Discharge Disposition: Discharged to home or Selfcare 09/03/2024 9:40 AM CDT Office Visit [facility] Services [address] [place] [address] Donna Michel August, PAC [address] [place] [address] Renan Hernandez MD [address] [place] [address] Discharge Disposition: Discharged to home or Selfcare 09/03/2024 10:30 AM CDT Clinical Support [facility] Services [address] [place] [address] Donna Michel August, PAC [address] [place] [address] Discharge Disposition: Discharged to home or Selfcare 09/14/2024 10:45 AM CDT [facility] #2 [place] [address] Ran Thacker MD #2 [facility] [address] [place] [address] documented as of this encounter Visit Diagnoses Not on filedocumented in this encounter Additional Health Concerns Assessment Noted Time PHQ-9 Depression Total Score: 0 04/03/19 9:52 AM BRANDING MACHINE OPERATOR documented as of this encounter Care Teams Doll Eye Setter Relationship Specialty Start Date End Date Ran Thacker MD #[address] [address] PCP - General Family Medicine 11/30/22 Korey Matute MD #2 [place] [address] Consulting Physician Neurology 02/01/23 Fernando Camarillo MD #[address] [address] Consulting Physician Colon and Rectal Surgery 01/31/24 documented as of this encounter
--- OUTSIDE RECORDS SUMMARY | 2024-07-21 09:30 | XMS_ITS | Encounter Summary ---
Author Organization [facility] Address [address] [place] [address] Phone Care Team Providers Care Quality Cloth Tester Name Role Phone Ran Thacker MD Primary Care Provider [phone] Milena Chakraborty DISPATCHER SERVICE Unavailable Unavailab Milena Pollard Unavailable Unavailab Korey Mccloud MD Unavailable [phone] Fernando Camarillo MD Unavailable Encounter Details Date Type Department Care Team (Late st Contact Info) Description 01/16/2023 Telephone [facility] at [facility] [address], [address] [place] [address] Cindy Jordan, OT [place] Social History Tobacco Use Types Packs/Day Years [...] suspected to have Coronavirus/COVID-19? No / Unsure 01/18/2023 10:13 AM CDT documented as of this encounter Plan of Treatment Upcoming Encounters Date Type Department Care Team (Late st Contact Info) Description 07/23/2024 2:45 PM CDT Physical Therapy [facility] Rehab at [facility] [address] [facility], [address] [address] William Harrison MD [address] [address] Evie Arechiga, PT [place] Discharge Disposition: Discharged to home or Selfcare 09/03/2024 8:30 AM CDT [facility] [address] [place] [address] Donna Michel August, PAC [address] [place] [address] Discharge Disposition: Discharged to home or Selfcare 09/03/2024 9:40 AM CDT Office Visit [facility] Oncology Services [address] [place] [address] Donna Michel August, PAC [address] [place] [address] Renan Hernandez MD [address] [place] [address] Discharge Disposition: Discharged to home or Selfcare 09/03/2024 10:30 AM CDT Clinical Support [facility] Oncology Services [address] [place] [address] Donna Michel August, PAC [address] [place] [address] Discharge Disposition: Discharged to home or Selfcare 09/14/2024 10:45 AM CDT Office Visit [facility] Medical Group - Family [facility] #2 [place] [address] Ran Thacker MD #2 [facility] [address] [place] [address] documented as of this encounter Visit Diagnoses Not on filedocumented in this encounter Additional Health Concerns Infection Onset Date Last Indicated Resolved Time COVID - 19 03/28/2023 03/28/2023 04/07/2023 12:1 6 AM PSYCHIATRIC SOCIAL WORKER documented as of this encounter Care Teams Quality Cloth Tester Relationship Specialty Start Date End Date Ran Thacker MD #[address] [address] PCP - General Family Medicine 11/30/22 Milena Chakraborty LSW [place] Computer Forensic Examiner 12/27/22 04/03/23 Milena Chakraborty LSW [place] Converting Supervisor Computer Forensic Examiner 12/27/22 06/24/23 Korey Matute MD #2 [place] [address] Consulting Physician Neurology 02/01/23 Fernando Camarillo MD #[address] [address] Consulting Physician Colon and Rectal Surgery 01/31/24 documented as of this encounter
--- OUTSIDE RECORDS SUMMARY | 2024-07-21 09:30 | XMS_ITS | Encounter Summary ---
Author Organization [facility] Address [address] [place] [address] Phone Care Team Providers Care Ceo Na Name Role Phone Ran Thacker MD Primary Care Provider [phone] Milena Chakraborty Unavailable Unavailab Korey Mccloud MD Unavailable [phone] Fernando Camarillo MD Unavailable Reason for Visit * Reason Comments Medication Refill Encounter Details Date Type Department Care Team (Late st Contact Info) Description 04/26/2023 Refill [facility] Medical Group - Family Medicine [facility] #2 [place] [address] Ran Thacker MD #[address] [address] Medication Refill Social History Tobacco Use Types Packs/Day Years Used Date Smoking Tobacco: Never Smokeless Tobacco: Never Alcohol Use Standard Drinks/Week Comments Never 0 (1 standard drink = 0.6 oz pur e alcohol) [facility] Utilities Answer Date Recorded In the [...] often do you attend chur ch or jewish services? Never 04/03/2023 Do you belong to any clubs o r organizations such as pentecostalism groups, unions, fraternal or athletic groups, or [...] Total Score - Questions 1-9 0 03/18 [facility] of Occupat ional Health - Occupational [...] place to sleep or slept in a snf (including now)? No 04/03/2023 Sex and Gender Information Value Date Recorded Sex Assigned at Not on file Legal Sex Male 10:13 AM CDT Gender Identity Not on file Sexual Orientation Not on file documented as of this encounter Miscellaneous Notes * Telephone Encounter - Nakia Davis RN - 04/26/2023 2:50 PM CST Medication failed the protocol, provider to review and approve the medication order if appropriate. Requested Prescriptions Pending Prescriptions Disp Refills desipramine (NORPRAMIN) 25 MG Tablet [Pharmacy Med Name: DESIPRAMINE 25MG TABLETS] 120 Tablet 0 Sig: TAKE 4 TABLETS BY MOUTH EVERY NIGHT Not Delegated - Tricyclic Agents Protocol Failed - 04/26/2023 12:33 PM Failed - This refill cannot be [...] 90 days and meeting all other requirements baclofen (LIORESAL) 10 MG Tablet [Pharmacy Med Name: BACLOFEN 10MG TABLETS] 90 Tablet 0 Sig: TAKE 1 TABLET BY MOUTH THREE TIMES DAILY Not Delegated - Muscle Relaxants Protocol Failed - 04/26/2023 12:33 PM Failed - This refill cannot be delegated Passed - Visit with relevant provider in past 12 months or upcoming 90 days Recent Visits Date Type Provider Dept 04/04/23 Office Visit Ran Thacker MD [facility] 12/27/22 Office Visit Ran Thacker MD [facility] Showing recent visits within past 365 days and meeting all other requirements Future Appointments Date Type Provider Dept 07/11/23 Appointment Ran Thacker MD [facility] Showing future appointments within next 90 days and meeting all other requirements ING ENFORCER documented in this encounter Plan of Treatment Upcoming Encounters Date Type Department Care Team (Late st Contact Info) Description 07/23/2024 2:45 PM CDT Physical Therapy [facility] Rehab at [address] [address] William Harrison MD [address] [facility] [address] [place] [address] Evie Arechiga, PT [place] Discharge Disposition: Discharged to home or Selfcare 09/03/2024 8:30 AM CDT [facility] [address] [place] [address] Donna Michel August, PAC [address] [place] [address] Discharge Disposition: Discharged to home or Selfcare 09/03/2024 9:40 AM CDT Office Visit [facility] Oncology Services [address] [place] [address] Donna Michel August, PAC [address] [place] [address] Renan Hernandez MD 0 [place] [address] Discharge Disposition: Discharged to home or Selfcare 09/03/2024 10:30 AM CDT [facility] [address] [place] [address] [facility] 0 [place] [address] Discharge Disposition: Discharged to home or Selfcare 09/14/2024 10:45 AM CDT Office Visit [facility] Medical Group - Family [facility] #2 [place] [address] Ran Thacker MD #[address] [address] documented as of this encounter Visit Diagnoses Not on filedocumented in this encounter Additional Health Concerns Assessment Noted Time PHQ-9 Depression Total Score: 0 04/03/19 24 9:52 AM PARKING ENFORCER documented as of this encounter Care Teams Ceo Na Relationship Specialty Start Date End Date Ran Thacker MD #[address] [address] PCP - General Family Medicine 11/30/22 Milena Chakraborty LSW [place] Administrative Intern Barrow Worker 12/27/22 06/24/23 Korey Matute MD #2 [place] [address] Consulting Physician Neurology 02/01/23 Fernando Camarillo MD #[address] [address] Consulting Physician Colon and Rectal Surgery 01/31/24 documented as of this encounter
--- OUTSIDE RECORDS SUMMARY | 2024-07-21 09:30 | XMS_ITS | Referral Summary ---
Author Organization [facility] Address [address] [place] [address] Care Team Providers Care Infantryman Name Role Phone Ran Thacker MD Primary Care Provider [phone] Encounters Date Type Department Care Team Description 07/14/2024 6:45 PM CDT Office Visit [facility] Medical Group [facility]venient Care at [address] [address] Mariam Cordero NP Anal pain (Primary Dx) 07/12/2024 Results Follow-Up [facility] Care at [address] [address] Sugar Hernández PA 07/10/2024 3:37 PM CDT - 07/10/2024 11:59 PM CDT Hospital Encounter [address] [address] Possible exposure to STI Discharge Disposition: Discharge to home or self care 07/10/2024 4:15 PM CDT Office Visit [facility] Convenient Care at [address] [address] Silvia Brown NP Possible exposure to STI (Primary Dx) from Last 3 Months Allergies No known active allergies Medications gabapentin [...] Active Active Problems No known active problems Social History Tobacco Use Types Packs/Day Years [...] 07/14/2024 6:32 PM CDT Plan of Treatment Not on file Procedures Procedure Name Priority Date/Time Associated Diagnosis [...] CDT) HSV DNA Not Detected Not Detected [facility] Comment: Interpretive Data This assay is performed [...] last reviewed on 07/15/2018 Testing performed by: [facility], [address] [place] [address]., [id number] Penile 07/10/2024 3:37 PM CDT 07/11/2024 6:40 PM CDT Silvia Brown NP LAB MICROBIOLOGY - GENERAL ORD ERABLES Final Result [facility] [address] Department [place] [address] [facility] * N. gonorrhoeae/C. trachomatis Amplification Urine (07/10/2024 3:37 PM CDT) Pathologist [facility] C. trachomatis Not Detected [facility] Comment:Testing performed by : [facility], [address] [place] [address]., [id number] N. gonorrhoeae Not Detected [facility] Comment: Interpretive Data This assay detects Chlamydia trachomatis and Neisseria gonorrhoeae by nucleic acid amplification testing (NAAT). This assay has been cleared by the [place] Food and Drug administration. The performance characteristics of this test have been verified by the [facility] Molecular Infectious Disease laboratory. The performance characteristics of this test have not been evaluated in individuals less than 14 years of age. Current Interpretive Data was last revised on 2023. Testing performed by: [facility], [address] [place] [address]., [id number] Urine (None) 07/10/2024 3:37 PM CDT 07/11/2024 6:43 PM CDT Silvia Brown NP LAB MICROBIOLOGY - GENERAL ORD ERABLES Final Result Performing Organization Address [facility] de Phone Number RAD [address] [address] [facility] [place] [address] [facility] * Trichomonas vaginalis PCR Urine (07/10/2024 3:37 PM CDT) Pathologist [facility] Trichomonas DNA Not Detected [facility] Comment: Interpretive Data This assay detects Trichomonas vaginalis by nucleic acid amplification testing (NAAT). This assay has been cleared by the [place] Food and Drug administration. The performance characteristics of this test have been verified by the [facility] Molecular Infectious Disease laboratory. The performance of this test has not been evaluated in individuals less than 18 years of age. Current Interpretive Data was last revised on 2023. Testing performed by: [facility], [address] [place] [address]., [id number] Urine 07/10/2024 3:37 PM CDT 07/11/2024 6:43 PM CDT Silvia Brown NP LAB MICROBIOLOGY - GENERAL ORD ERABLES Final Result Performing Organization Address [facility] Co de Phone Number RAD [address] [address] [facility] [place] [address] [facility] from Last 3 Months Insurance [facility] Care Teams Infantryman Relationship Specialty Start Date End Date Ran Thacker MD [address] [address] PCP - General Family Medicine 07/10/24
--- OUTSIDE RECORDS SUMMARY | 2024-07-21 09:30 | XMS_ITS | Encounter Summary ---
Author Organization [facility] Address [address] [place] [address] Phone Care Team Providers Care Field Checker Name Role Phone Ran Thacker MD Primary Care Provider [phone] Korey Matute MD Unavailable [phone] Fernando Camraillo MD Unavailable Reason for Visit * Reason Comments Medication Refill Encounter Details Date Type Department Care Team (Late st Contact Info) Description 09/26/2023 Refill [facility] Medical Group - Family Medicine [facility] #2 [place] [address] Ran Thacker MD #[address] [id number] Medication Refill Social History Tobacco Use Types Packs/Day Years Used Date Smoking Tobacco: Former Cigarettes Smokeless Tobacco: Never Alcohol Use Standard Drinks/Week Comments Not Currently 0 (1 standard drink = 0.6 oz pur e alcohol) [facility] Utilities Answer Date Recorded In the past 12 months has [employer], gas, oil, or water World[employer] threatened to shut off services in your [...] often do you attend chur ch or mosque services? Never 04/03/2023 Do you belong to any clubs o r organizations such as muslim groups, unions, fraternal or athletic groups, or [...] Total Score - Questions 1-9 0 03/18 [facility] of Occupat ional Health - Occupational Stress [...] place to sleep or slept in a fdc (including now)? No 04/03/2023 Sex and Gender Information Value Date Recorded Sex Assigned at Not on file Legal Sex Male 10:13 AM CDT Gender Identity Not on file Sexual Orientation Not on file documented as of this encounter Miscellaneous Notes * Telephone Encounter - Nakia Davis RN - 09/27/2023 8:55 AM CDT 09/04/23 - VITAMIN D, 25 HYDROX ng/mL 33 Medication failed the protocol, provider to review and approve the medication order if appropriate. Requested Prescriptions Pending Prescriptions Disp Refills ergocalciferol (VITAMIN D) 02179 UNIT Capsule [Pharmacy Med Name: VITAMIN D2 50,000IU (ERGO) CAP RX] 12 Capsule 0 Sig: TAKE 1 CAPSULE BY MOUTH 1 TIME A WEEK FOR 12 DOSES Vitamin Supplements (Adult) Protocol Passed - 09/26/2023 5:12 PM Passed - Visit with relevant provider in past 12 months or upcoming 90 days Recent Visits Date Type Provider Dept 08/08/23 Telemedicine Ran Thacker MD [facility] [...] and meeting all other requirements Passed - Vitamin D dose not greater than 1.25mg gabapentin (NEURONTIN) 300 MG Capsule [Pharmacy Med Name: GABAPENTIN 300MG CAPSULES] 90 Capsule 0 Sig: TAKE 1 CAPSULE BY MOUTH EVERY 8 HOURS Not Delegated - Anticonvulsants Excluding Benzodiazepines Protocol Failed - 09/26/2023 5:12 PM Failed - This refill cannot be delegated Passed - Visit with relevant provider in past 12 months or upcoming 90 days Recent Visits Date Type Provider Dept 08/08/23 Telemedicine Ran Thacker MD [facility] [...] Description 07/23/2024 2:45 PM CDT [facility] 200 [facility], [facility] [address] [place] [address] William Harrison MD 3560 [facility] [address] [place] [address] Evie Arechiga, PT [place] Discharge Disposition: Discharged to home or Selfcare 09/03/2024 8:30 AM CDT Lab [facility] [address] [place] [address] MichelDonna August, PAC [address] [place] [address] Discharge Disposition: Discharged to home or Selfcare 09/03/2024 9:40 AM CDT [facility] [address] [place] [address] MichelDonna August, PAC [address] [place] [address] Renan Hernandez MD [address] [place] [address] Discharge Disposition: Discharged to home or Selfcare 09/03/2024 10:30 AM CDT Clinical Support [facility] Oncology Services [address] [place] [address] GanadoDonna August, PAC [address] [place] [address] Discharge Disposition: Discharged to home or Selfcare 09/14/2024 10:45 AM CDT Office Visit [facility] Medical Group - Family Medicine [facility] #[address] [place] [address] Ran Thacker MD #[address] [address] documented as of this encounter Visit Diagnoses Diagnosis Vitamin D deficiency Unspecified vitamin D deficiency documented in this encounter Additional Health Concerns Assessment Noted Time PHQ-9 Depression Total Score: 0 04/03/19 24 9:52 AM BIOLOGY ADJUNCT INSTRUCTOR documented as of this encounter Care Teams Field Checker Relationship Specialty Start Date End Date Ran Thacker MD #[address] [address] PCP - General Family Medicine 11/30/22 Korey Matute MD #2 [place] [address] Consulting Physician Neurology 02/01/23 Fernando Camarillo MD #[address] [address] Consulting Physician Colon and Rectal Surgery 01/31/24 documented as of this encounter
--- OUTSIDE RECORDS SUMMARY | 2024-07-21 09:30 | XMS_ITS | Encounter Summary ---
Author Organization [facility] Address [address] [place] [address] Phone Care Team Providers Care Candles Pourer Name Role Phone Ran Thacker MD Primary Care Provider [phone] Milena Chakraborty Unavailable Unavailab Milena Pollard Unavailable Unavailab Korey Mccloud MD Unavailable [phone] Fernando Camarillo MD Unavailable Reason for Visit * Reason Comments Medication Refill Encounter Details Date Type Department Care Team (Late st Contact Info) Description 01/24/2023 Refill [facility] Medical Group - Family Medicine [facility] #2 [place] [address] Ran Thacker MD #[address] [address] Medication Refill Social History Tobacco Use Types [...] Coronavirus/COVID-19? No / Unsure 01/25/2023 9:16 AM FISH WARDEN documented as of this encounter Miscellaneous Notes * Telephone Encounter - Jaycee Soto RN - 01/24/2023 8:51 AM FISH WARDEN Medication failed the protocol, provider to review and approve the medication order if appropriate. Requested Prescriptions Pending Prescriptions Disp Refills gabapentin (NEURONTIN) 300 MG Capsule [Pharmacy Med Name: GABAPENTIN 300MG CAPSULES] 90 Capsule 0 Sig: Take 1 Capsule by mouth every 8 hours. Not Delegated - Anticonvulsants Excluding Benzodiazepines Protocol Failed - 01/24/2023 5:17 AM Failed - This refill cannot be [...] 0 Sig: TAKE 4 TABLETS BY MOUTH NIGHTLY Not Delegated - Tricyclic Agents Protocol Failed - 01/24/2023 5:17 AM Failed - This refill cannot be [...] 90 days and meeting all other requirements WARDEN documented in this encounter Plan of Treatment Upcoming Encounters Date Type Department Care Team (Late st Contact Info) Description 07/23/2024 2:45 PM CDT Physical Therapy [facility] Rehab at [facility] [address], [address] [address] William Harrison MD [address] [address] Evie Arechiga, PT [place] Discharge Disposition: Discharged to home or Selfcare 09/03/2024 8:30 AM CDT Lab [facility] Oncology Services [address] [place] [address] TorranceDonna Meghna, PAC [address] [place] [address] Discharge Disposition: Discharged to home or Selfcare 09/03/2024 9:40 AM CDT Office Visit [facility] Oncology Services [address] [place] [address] TorranceDonna August, PAC [address] [place] [address] Renan Hernandez MD [address] [place] [address] Discharge Disposition: Discharged to home or Selfcare 09/03/2024 10:30 AM CDT Clinical Support [facility] Oncology Services [address] [place] [address] TorranceDonna Meghna, PAC [address] [place] [address] Discharge Disposition: Discharged to home or Selfcare 09/14/2024 10:45 AM CDT Office Visit [facility] Medical Group - Family Medicine [facility] #2 [place] [address] Ran Thacker MD #[address] [address] documented as of this encounter Visit Diagnoses Not on filedocumented in this encounter Additional Health Concerns Infection Onset Date Last Indicated Resolved Time COVID - 19 03/28/2023 03/28/2023 04/07/2023 12:1 6 AM FISH WARDEN documented as of this encounter Care Teams Candles Pourer Relationship Specialty Start Date End Date Ran Thacker MD #2 [facility] [address] [place] [address] PCP - General Family Medicine 11/30/22 Milena Chakraborty LSW [place] Fabric Pattern Grader 12/27/22 04/03/[address] [place] Security Installation Sales Technician Fabric Pattern Grader 12/27/22 06/24/23 Korey Matute MD #2 [place] [address] Consulting Physician Neurology 02/01/23 Fernando Camarillo MD #2 [facility] [address] [place] [address] Consulting Physician Colon and Rectal Surgery 01/31/24 documented as of this encounter
--- NOTE | 2024-07-21 09:48 | ED_ITS ---
HPI - Recheck/Abnormal Lab/Rx General Chief Complaint: Recheck/Abnormal Lab/Rx Stated Complaint: STD testing Time Seen by Provider: 07/21/24 09:26 History of Present Illness HPI narrative: Pt had sex and condom slipped off and he is concerned he has STI. Pt says he has spot on penis. Pt denies discharge or any painful lesions. Related Data Home Medications ?Medication ?Instructions ?Recorded ?Confirmed ?Last Taken ?Type aspirin 81 mg chewable tablet 81 mg PO DAILY 07/04/22 04/16/23 Unknown History baclofen 5 mg tablet 10 mg PO TID 07/04/22 04/16/23 Unknown History albuterol sulfate 90 mcg/actuation 2 puff inhalation PRN PRN 04/16/23 04/16/23 Unknown History aerosol inhaler Shortness Of Breath Or Wheezing desipramine 25 mg tablet 100 mg PO HS 04/16/23 04/16/23 Unknown History docusate sodium 100 mg capsule 100 mg PO BID 04/16/23 04/16/23 Unknown History gabapentin 300 mg capsule 300 mg PO TID 04/16/23 04/16/23 Unknown History haloperidol 1 mg tablet 1 mg PO DAILY 04/16/23 04/16/23 Unknown History pantoprazole 40 mg tablet,delayed 40 mg PO BID 04/16/23 04/16/23 Unknown History release Allergies Allergy/AdvReac Type Severity Reaction Status Date / Time No Known Allergies Allergy Unknown Verified 07/21/24 09:12 Review of Systems Review of Systems: All systems reviewed & are unremarkable except as noted in HPI and below PMFSH Past Medical History Medical History Anxiety Head ache Patient denies significant medical history Stroke Left lacunar infarction 2021 Substance abuse Methamphetamines TBI (traumatic brain injury) Tobacco abuse Surgical History Surgical History History of fundoplication History of tracheostomy Removed 01/2022 Family History Family History Father Hypertension Anxiety Mother Anxiety Social History Social History Smoking packs per day: 1 Smoking cigarettes per day: 20.0 Smoking status: Current every day smoker Tobacco type: cigarettes Alcohol intake: current Alcohol use details: soical Substance use: never Substance use type: does not use Lack of Transportation: No Lack of Food: Never True Current Housing: I Have Housing Concerned About Future Housing: No Difficulty Paying Gas/Electric Bills: No Difficulty Paying for Meds: No Currently Unemployed: No Education: High School Diploma/GED Difficulty w/ Childcare or Family Care: No Spiritual care concerns: No Exam Const: General: healthy appearing Nutritional Appearance: well nourished Orientation/consciousness: patient oriented x3 Limitations: no limitations Resp: Effort & Inspection: normal respiratory effort Auscultation: clear to auscultation bilaterally Cardio: Rate: regular rate Rhythm: regular rhythm GI: GI Palp: Yes Soft to palpation and No Tenderness to palpation present (GI) Auscultation: normal bowel sounds : General: Yes bladder normal to palpation Male General Exam: Yes normal external exam Penis: Yes normal penis Scrotum: scrotum normal Testes: Testes normal Skin: General skin exam: normal color Neuro: General: patient oriented x3, moves all extremities and no focal motor deficits Speech: normal speech Extrem: General: normal to inspection and no clubbing, cyanosis or edema Psych: Mental Status: mental status grossly normal Affect: normal affect Attitude: cooperative Course Vital Signs Vital signs: Vital Signs Temperature 97.9 F 07/21/24 09:06 Pulse Rate 66 07/21/24 09:06 Respiratory Rate 17 07/21/24 09:06 Blood Pressure 147/103 H 07/21/24 09:06 Pulse Oximetry 96 07/21/24 09:06 Oxygen Delivery Room Air 07/21/24 09:06 Temperature 97.9 F 07/21/24 09:06 Pulse Rate 73 07/21/24 11:49 Respiratory Rate 15 07/21/24 11:49 Blood Pressure 137/97 H 07/21/24 11:49 Pulse Oximetry 97 07/21/24 11:49 Oxygen Delivery Room Air 07/21/24 09:06 MDM - Recheck/Abnormal Lab/Rx MDM Narrative Medical decision making narrative: Pt concerned because hthe condom slipped off during sex. exam normal. will treat with rocephin and doxy and send to health dept. Lab Data Labs: Lab Results 07/21/24 Range/Units 10:06 C. trachomatis (PCR) Not detected (NOT DETECTE) N. gonorrhoeae (PCR) Not detected (NOT DETECTE) Discharge Plan Discharge Clinical Impression: Sexually transmitted disease exposure Patient Disposition: Home Condition: Stable Instructions: Antibiotic Form, Sexually Transmitted Diseases (ED) Additional Instructions: call [phone] ( Health Dept) for further testing for sti's. Patient Language: [place] Prescriptions: New doxycycline monohydrate 100 mg capsule 100 mg PO BID Qty: 14 0RF No Action albuterol sulfate 90 mcg/actuation HFA aerosol inhaler 2 puff INHALATION PRN PRN (Reason: Shortness Of Breath Or Wheezing) desipramine 25 mg tablet 100 mg PO HS docusate sodium 100 mg capsule 100 mg PO BID gabapentin 300 mg capsule 300 mg PO TID haloperidol 1 mg tablet 1 mg PO DAILY pantoprazole 40 mg tablet,delayed release (DR/EC) 40 mg PO BID amoxicillin 500 mg tablet 1,000 mg PO DAILY 10 Days Qty: 20 0RF tizanidine 4 mg capsule 4 mg PO BID PRN (Reason: muscle spasticity) Qty: 14 0RF aspirin 81 mg Tablet,Chewable 81 mg PO DAILY baclofen 5 mg tablet 10 mg PO TID Follow-up/Referrals: Kedar,Ran Wills MD [Primary Care Provider] -
--- OUTSIDE RECORDS SUMMARY | 2024-07-21 10:15 | XMS_ITS | Encounter Summary ---
Author Organization [facility] Address [address] [place] [address] Phone Care Team Providers Care Flask Carrier Name Role Phone Ran Thacker MD Primary Care Provider [phone] Korey Matute MD Unavailable [phone] Fernando Camarillo MD Unavailable Reason for Visit * Reason Comments Medication Refill Encounter Details Date Type Department Care Team (Late st Contact Info) Description 11/11/2023 Refill [facility] Medical [facility] - Family Medicine [facility] #2 [place] [address] Ran Thacker MD #[address] [id number] Medication Refill Social History Tobacco Use Types Packs/Day Years Used Date Smoking Tobacco: Former Cigarettes Smokeless Tobacco: Never Alcohol Use Standard Drinks/Week Comments Not Currently 0 (1 standard drink = 0.6 oz pur e alcohol) [facility] Utilities Answer Date Recorded In the past 12 months has [employer], gas, oil, or water [employer] threatened to shut off services in your [...] often do you attend chur ch or mormon services? Never 04/03/2023 Do you belong to [...] Total Score - Questions 1-9 0 09/16 [facility] of Occupat ional Health - Occupational Stress [...] place to sleep or slept in a halfway (including now)? No 04/03/2023 Sex and Gender [...] 2:45 PM CDT Physical Therapy [facility] at [facility] [address] [facility] [address] [place] [address] William Harrison MD [address] [address] Evie Arechiga, PT [place] Discharge Disposition: Discharged to home or Selfcare 09/03/2024 8:30 AM CDT Lab [facility] Services 0 [place] [address] MichelJennyferaugust, PAC [address] [place] [address] Discharge Disposition: Discharged to home or Selfcare 09/03/2024 9:40 AM CDT Office Visit [facility] Services [address] [place] [address] Michel, Donna August, PAC [address] [place] [address] Renan Hernandez MD [address] [place] [address] Discharge Disposition: Discharged to home or Selfcare 09/03/2024 10:30 AM CDT Clinical Support [facility] Oncology Services [address] [place] [address] [facility] [address] [place] [address] Discharge Disposition: Discharged to home or Selfcare 09/14/2024 10:45 AM CDT Office Visit [facility] Medical Group - Family Medicine [facility] #2 [place] [address] Ran Thacker MD [address] [address] documented as of this encounter Visit Diagnoses Not on filedocumented in this encounter Additional Health Concerns Assessment Noted Time PHQ-9 Depression Total Score: 0 07//20 24 1:23 PM CDT documented as of this encounter Care Teams Flask Carrier Relationship Specialty Start Date End Date Ran Thacker MD #[address] [address] PCP - General Family Medicine 11/30/22 Korey Matute MD #2 [place] [address] Consulting Physician Neurology 02/01/23 Fernando Camarillo MD #[address] [address] Consulting Physician Colon and Rectal Surgery 01/31/24 documented as of this encounter
--- OUTSIDE RECORDS SUMMARY | 2024-07-21 10:15 | XMS_ITS | Encounter Summary ---
Author Organization [facility] Address [address] [place] [address] Phone Care Team Providers Care Window Systems Administrator Name Role Phone Ran Thacker MD Primary Care Provider [phone] Korey Matute MD Unavailable [phone] Fernando Camarillo MD Unavailable Reason for Visit * Reason Comments Medication Refill Encounter Details Date Type Department Care Team (Late st Contact Info) Description 11/11/2023 Refill [facility] Medical Group - Family Medicine [facility] #2 [place] [address] Ran Thacker MD #[address] [id number] Medication Refill Social History Tobacco Use Types Packs/Day Years Used Date Smoking Tobacco: Former Cigarettes Smokeless Tobacco: Never Alcohol Use Standard Drinks/Week Comments Not Currently 0 (1 standard drink = 0.6 oz pur e alcohol) [facility] Utilities Answer Date Recorded In the past 12 months has [employer], gas, oil, or water [employer] threatened to shut off services in your [...] often do you attend chur ch or advent services? Never 04/03/2023 Do you belong to any clubs o r organizations such as yarsanism groups, unions, fraternal or athletic groups, or [...] Total Score - Questions 1-9 0 09/16 [facility] [place] of Occupat ional Health - Occupational Stress [...] Description 07/23/2024 2:45 PM CDT Physical Therapy [facility] at [facility] [address] [facility], [address] [place] [address] William Harrison MD [address] [address] Evie Arechiga, PT [place] Discharge Disposition: Discharged to home or Selfcare 09/03/2024 8:30 AM CDT Lab [facility] Oncology Services 0 [place] [address] MichelJennyferaugust, PAC [address] [place] [address] Discharge Disposition: Discharged to home or Selfcare 09/03/2024 9:40 AM CDT Office Visit [facility] Oncology Services [address] [place] [address] Michel, Donna August, PAC [address] [place] [address] Renan Hernandez MD [address] [place] [address] Discharge Disposition: Discharged to home or Selfcare 09/03/2024 10:30 AM CDT Clinical Support [facility] Oncology Services 0 [place] [address] [facility] [address] [place] [address] Discharge Disposition: Discharged to home or Selfcare 09/14/2024 10:45 AM CDT Office Visit [facility] Medical Group - Family Medicine [facility] #[address] [place] [address] Ran Thacker MD #[address] [address] documented as of this encounter Visit Diagnoses Not on filedocumented in this encounter Additional Health Concerns Assessment Noted Time PHQ-9 Depression Total Score: 0 07//20 24 1:23 PM CDT documented as of this encounter Care Teams Window Systems Administrator Relationship Specialty Start Date End Date Ran Thacker MD #[address] [address] PCP - General Family Medicine 11/30/22 Korey Matute MD #2 [place] [address] Consulting Physician Neurology 02/01/23 Fernando Camarillo MD #[address] [address] Consulting Physician Colon and Rectal Surgery 01/31/24 documented as of this encounter
--- OUTSIDE RECORDS SUMMARY | 2024-07-21 10:15 | XMS_ITS | Encounter Summary ---
Author Organization [facility] Address [address] [place] [address] Phone Care Team Providers Care Rehab Technician Name Role Phone Ran Thacker MD Primary Care Provider [phone] Milena Chakraborty Unavailable Unavailab Milena Pollard Unavailable Unavailab Korey Mccloud MD Unavailable [phone] Fernando Camarillo MD Unavailable Reason for Visit * Reason Comments Medication Refill Encounter Details Date Type Department Care Team (Late st Contact Info) Description 03/28/2023 Refill [facility] Medical Group - Family Medicine [facility] #2 [place] [address] Ran Thacker MD #[address] [address] Medication Refill Social History Tobacco Use Types [...] 90 days and meeting all other requirements 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 documented in this encounter Plan of Treatment Upcoming Encounters Date Type Department Care Team (Late st Contact Info) Description 07/23/2024 2:45 PM CDT Physical Therapy [facility] Re[facility] at [facility] [address] [phone] William Harrsion MD [address] [address] Evie Arechiga, PT [place] Discharge Disposition: Discharged to home or Selfcare 09/03/2024 8:30 AM CDT Lab [facility] [address] [place] [address] Donna Michel PAC [address] [place] [address] Discharge Disposition: Discharged to home or Selfcare 09/03/2024 9:40 AM CDT Office Visit [facility] Oncology Services [address] [place] [address] Donna Micehl August, PAC [address] [place] [address] Renan Hernandez MD [address] [place] [address] Discharge Disposition: Discharged to home or Selfcare 09/03/2024 10:30 AM CDT Clinical Support [facility] Oncology Services [address] [place] [address] Donna Michel August, PAC [address] [place] [address] Discharge Disposition: Discharged to home or Selfcare 09/14/2024 10:45 AM CDT Office Visit [facility] Medical Group - Family Medicine [facility] #2 [place] [address] Ran Thacker MD #[address] [address] documented as of this encounter Visit Diagnoses Not on filedocumented in this encounter Additional Health Concerns Infection Onset Date Last Indicated Resolved Time COVID - 19 03/28/2023 03/28/2023 04/07/2023 12:1 6 AM 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
--- OUTSIDE RECORDS SUMMARY | 2024-07-21 10:16 | XMS_ITS | Encounter Summary ---
Author Organization [facility] Address [address] [place] [address] Phone Care Team Providers Care Gummed Tape Press Operator Name Role Phone Ran Thacker MD Primary Care Provider [phone] Milena Chakraborty Unavailable Unavailab Korey Mccloud MD Unavailable [phone] Fernando Camarillo MD Unavailable Reason for Visit * Reason Comments Medication Refill Encounter Details Date Type Department Care Team (Late st Contact Info) Description 04/26/2023 Refill [facility] Medical Group - Family Medicine [facility] #2 [place] [address] Ran Thacker MD #[address] [address] Medication Refill Social History Tobacco Use Types Packs/Day Years Used Date Smoking Tobacco: Never Smokeless Tobacco: Never Alcohol Use Standard Drinks/Week Comments Never 0 (1 standard drink = 0.6 oz pur e alcohol) [facility] Utilities Answer Date Recorded In the past [...] often do you attend chur ch or methodist services? Never 04/03/2023 Do you belong to any clubs o r organizations such as anglican groups, unions, fraternal or athletic groups, or [...] Total Score - Questions 1-9 0 03/18 [facility] of Occupat ional Health - Occupational [...] place to sleep or slept in a fci (including now)? 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 documented in this encounter Plan of Treatment Upcoming Encounters Date Type Department Care Team (Late st Contact Info) Description 07/23/2024 2:45 PM CDT Physical Therapy [facility] at [address] [address] Wililam Harrison MD [address] [facility] [address] [place] [address] Evie Arechiga, PT [place] Discharge Disposition: Discharged to home or Selfcare 09/03/2024 8:30 AM CDT [facility] [address] [place] [address] Donna Michel August, PAC [address] [place] [address] Discharge Disposition: Discharged to home or Selfcare 09/03/2024 9:40 AM CDT Office Visit [facility] Oncology Services [address] [place] [address] Donna Michel August, PAC [address] [place] [address] Renan Hernandez MD 0 [place] [address] Discharge Disposition: Discharged to home or Selfcare 09/03/2024 10:30 AM CDT [facility] 0 [place] [address] [facility] 0 [place] [address] Discharge Disposition: Discharged to home or Selfcare 09/14/2024 10:45 AM CDT Office Visit [facility] Medical Group - [facility]2 [place] [address] Ran Thacker MD #[address] [address] documented as of this encounter Visit Diagnoses Not on filedocumented in this encounter Additional Health Concerns Assessment Noted Time PHQ-9 Depression Total Score: 0 04/03/19 24 9:52 AM HISTORY CARD CLERK documented as of this encounter Care Teams Gummed Tape Press Operator Relationship Specialty Start Date End Date Ran Thacker MD #[address] [address] PCP - General Family Medicine 11/30/22 Milena Chakraborty LSW [place] Scanning Tech Sales Support Assistant 12/27/22 06/24/23 Korey Matute MD #2 [place] [address] Consulting Physician Neurology 02/01/23 Fernando Camarillo MD #[address] [address] Consulting Physician Colon and Rectal Surgery 01/31/24 documented as of this encounter
--- OUTSIDE RECORDS SUMMARY | 2024-07-21 10:16 | XMS_ITS | Encounter Summary ---
Author Organization [facility] Address [address] [facility] [place] [address] Care Team Providers Care Blindstitch Hemmer Name Role Phone Ran Thacker MD Primary Care Provider [phone] Reason for Visit * Reason Onset Date Comments Appointment 11/21/2023 Encounter Details Date Type Department Care Team (Late st Contact Info) Description 11/21/2023 Telephone [facility] - Centralized Scheduling [address] [place] [phone] William Harrison MD [address] [address] Appointment Social History Tobacco Use [...] Procedure visit [facility] - Neurology [address] [place] [phone] William Harrison MD [address] [place] [address] OF [place]UROLOG[place] [address] 10/29/2024 10:30 AM CDT Office Visit [facility]ician Group - Orthopedics [address] [place] [address] Baltazar Gonzales MD [address] [place] [address] DIV OF ORTHOPEDIC SURGERY [place] [address] 12/01/2024 2:30 PM CDT Procedure visit [facility] - Neurology [address] [place] [address], [place] [address] William Harrison MD [address] [place] [address] DIV OF NEUROLOGY [place] [address] documented as of this encounter Visit Diagnoses Not on filedocumented in this encounter Care Teams Blindstitch Hemmer Relationship Specialty Start Date End Date Ran Thacker MD [address] [address] PCP - General Family Medicine 06/20/23 documented as of this encounter
--- OUTSIDE RECORDS SUMMARY | 2024-07-21 10:16 | XMS_ITS | Encounter Summary ---
Author Organization [facility] Address [address] [place] [address] Phone Care Team Providers Care Non Destructive Testing Inspector Name Role Phone Ran Thacker MD Primary Care Provider [phone] Milnea Chakraborty Unavailable Unavailab Milena Pollard Unavailable Unavailab Korey Mccloud MD Unavailable [phone] Fernando Camarillo MD Unavailable Reason for Visit * Reason Comments Medication Refill Encounter Details Date Type Department Care Team (Late st Contact Info) Description 03/24/2023 Refill [facility] Medical Group - Family Medicine [facility] #2 [place] [address] Ran Thacker MD #[address] [address] Medication Refill Social History Tobacco Use Types [...] Jaycee Soto RN - 03/24/2023 5:46 PM 3RD GRADE TEACHER Medication failed the protocol, provider to review [...] 90 days and meeting all other requirements 3RD GRADE TEACHER documented in this encounter Plan of Treatment Upcoming Encounters Date Type Department Care Team (Late st Contact Info) Description 07/23/2024 2:45 PM CDT Physical Therapy [facility] at [facility] [address], [facility] [address] [place] [address] William Harrison MD [address] [facility] [address] [place] [address] Evie Arechiga, PT [place] Discharge Disposition: Discharged to home or Selfcare 09/03/2024 8:30 AM CDT Lab [facility] Oncology Services 0 [place] [address] Michel Donna August, PAC [address] [place] [address] Discharge Disposition: Discharged to home or Selfcare 09/03/2024 9:40 AM CDT Office Visit [facility] Oncology Services [address] [place] [address] MichelDonna August, PAC [address] [place] [address] Renan Hernandez MD [address] [place] [address] Discharge Disposition: Discharged to home or Selfcare 09/03/2024 10:30 AM CDT Clinical Support [facility] Oncology Services [address] [place] [address] Michel Donna June, PAC [address] [place] [address] Discharge Disposition: Discharged to home or Selfcare 09/14/2024 10:45 AM CDT Office Visit [facility] Medical Group - Family Medicine [facility] #[address] [place] [address] Ran Thacker MD [address] [address] documented as of this encounter Visit Diagnoses Not on filedocumented in this encounter Additional Health Concerns Infection Onset Date Last Indicated Resolved Time COVID - 19 03/28/2023 03/28/2023 04/07/2023 12:1 6 AM 3RD GRADE TEACHER documented as of this encounter Care Teams Non Destructive Testing Inspector Relationship Specialty Start Date End Date Ran Thacker MD #[address] [address] PCP - General Family Medicine 11/30/22 Milena Chakraborty LSW [place] Foreign Agent 12/27/22 04/03/23 Milena Chakraborty LSW [place] Real Estate Underwriter Foreign Agent 12/27/22 06/24/23 Korey Matute MD #2 [place] [address] Consulting Physician Neurology 02/01/23 Fernando Camarillo MD #[address] [address] Consulting Physician Colon and Rectal Surgery 01/31/24 documented as of this encounter
--- OUTSIDE RECORDS SUMMARY | 2024-07-21 10:16 | XMS_ITS | Clinical Summary ---
Author Organization [facility] Address [address] [place] [address] Care Team Providers Care Forest Aide Name Role Phone Ran Layne Gerson CASTELLANO Primary Care Provider [phone] Allergies No known active allergies Medications loratadine [...] patient's age to complete this topic Insurance [facility] MEDICAL REIMBURSEMENTS OF [facility] Care Teams Forest Aide Relationship Specialty Start Date End Date Layne Tong NP [address] [place] [address] PCP - General Nurse Practitioner Family 11/26/19
--- OUTSIDE RECORDS SUMMARY | 2024-07-21 10:16 | XMS_ITS | Clinical Summary ---
Author Organization [facility] Address [address] [place] [address] Care Team Providers Care Stitchdowns Toe Former Name Role Phone Ran Thacker MD Primary Care Provider [phone] Korey Matute MD Unavailable [phone] Fernando Camarillo MD Unavailable Allergies No known [...] Description 07/16/2024 10:45 AM CDT [facility] [address] [place] [address] William Harrison MD Bogowith, Kelly A, PT History of traumatic brain injury (Primary Dx); Gait difficulty; Contracture of muscle of multiple sites Discharge Disposition: Discharged to home or Selfcare 07/16/2024 Travel 07/09/2024 11:[address] [facility] [address] [address] William Harrison MD Bogowith, Kelly A, PT History of traumatic brain injury (Primary Dx); Gait difficulty; Contracture of muscle of multiple sites Discharge Disposition: Discharged to home or Selfcare 07/09/2024 [facility] [place] [address] Ran Thacker MD Medication Renewal Reviewed 07/09/2024 Travel 07/03/2024 [facility] [place] [address] Ran Thacker MD Medication Renewal Reviewed 06/27/2024 MyChart RX Renewal [facility] [address] [place] [address] Ran Thacker MD Medication Renewal Reviewed 06/25/2024 11:30 AM CDT [facility] [address] [place] [address] William Harrison MD Kutchma, Joshua J, PT Gait difficulty (Primary Dx); Contracture of muscle of multiple sites; History of traumatic brain injury Discharge Disposition: Discharged to home or Selfcare 06/25/2024 Travel 06/22/2024 [facility] [place] [address] Ran Thacker MD Medication Refill 06/18/2024 11:[address] [facility] at [address] [place] [address] William Harrison MD Bogowith, Kelly A, PT History of traumatic brain injury (Primary Dx); Gait difficulty; Contracture of muscle of multiple sites Discharge Disposition: Discharged to home or Selfcare 06/18/2024 Travel 06/11/2024 MyChart RX Renewal [facility] [address] [place] [address] Ran Thacker MD Medication Renewal Declined 06/10/2024 2:[address] [facility] at [address] [address] William Harrison MD Bogowith, Kelly A, PT History of traumatic brain injury (Primary Dx); Gait difficulty Discharge Disposition: Discharged to home or Selfcare 06/10/2024 Travel 06/01/2024 2:00 PM CDT Clinical Support [facility] [address] [place] [address] Donna Michel PAC B12 deficiency; Polycythemia Discharge Disposition: Discharged to home or Selfcare 06/01/2024 Travel 05/31/2024 MyChart RX Renewal [facility] [address] [place] [address] Ran Thacker MD Medication Renewal Reviewed 05/27/2024 10:45 AM CDT [facility] [address] [place] [address] William Harrison MD Bogowith, Kelly A, PT History of traumatic brain injury (Primary Dx); Gait difficulty; Contracture of muscle of multiple sites Discharge Disposition: Discharged to home or Selfcare 05/27/2024 Plan of Care [facility]ation [facility] [address] [place] [address] 05/27/2024 Travel 05/18/2024 11:00 AM CLINICAL SPECIALIST MEDICAL DEVICE Occupational [facility] [address] [place] [address] William Harrison MD Embick, Alyssa, [place] Discharge Disposition: Discharged to home or Selfcare 05/18/2024 Travel 05/11/2024 10:00 AM CLINICAL SPECIALIST MEDICAL DEVICE [facility] [place] [address] Ran Thacker MD Memory loss (Primary Dx); Chronic pain syndrome; History of traumatic brain injury; Gastroesophageal reflux disease, unspecified whether esophagitis present Discharge Disposition: Discharged to home or Selfcare 05/11/2024 [facility] [place] [address] Ran Thacker MD 05/11/2024 Travel 05/07/2024 8:30 AM CLINICAL SPECIALIST MEDICAL DEVICE Physical [facility] [address] [place] [address] William Harrison MD Bogowith, Kelly A, PT History of traumatic brain injury (Primary Dx); Gait difficulty; Contracture of muscle of multiple sites Discharge Disposition: Discharged to home or Selfcare 05/07/2024 7:45 AM CLINICAL SPECIALIST MEDICAL DEVICE Occupational Therapy [facility] [address] [place] [address] William Harrison MD Embick, Alyssa, OT History of traumatic brain injury (Primary Dx) Discharge Disposition: Discharged to home or Selfcare 05/07/2024 Travel 05/01/2024 MyChart RX Renewal [facility] Medical Group [facility] [address] [place] [address] Rna Thacker MD Medication Renewal Reviewed 04/30/2024 8:30 AM CLINICAL SPECIALIST MEDICAL DEVICE Physical Therapy [facility] [address] [place] [address] William Harrison MD Bogowith, Kelly A, PT History of traumatic brain injury (Primary Dx); Gait difficulty; Contracture of muscle of multiple sites Discharge Disposition: Discharged to home or Selfcare 04/30/2024 Travel 04/23/2024 8:30 AM CLINICAL SPECIALIST MEDICAL DEVICE Physical Therapy [facility] [address] [place] [address] William Harrison MD Bogowith, Kelly A, PT [...] drink = 0.6 oz pur e alcohol) [facility] [employer] Answer Date Recorded In the past 12 months has [employer], gas, oil, or water [employer] threatened to shut off services in your [...] How often do you attend chur or taoist services? Patient declined 01/08/2024 Do you belong to any clubs o r organizations such as anabaptist groups, unions, fraternal or athletic groups, or [...] Total Score - Questions 1-9 0 04/19 [facility] of Occupat ional [facility] - Occupational Stress Questionnaire Answer Date Recorded [...] in a prison (including now)? No 04/03/2023 Housing Stability Vital [...] were you homeless or living in a prison (including now)? No 01/08/2024 Sexually Active Control Partners Comments Not Currently Female Sex and Gender Information Value Date Recorded Sex Assigned at Not on file Legal Sex Male 10:13 AM CDT Gender Identity Not on file Sexual Orientation Not on file Last Filed Vital Signs Vital Sign Reading Time Taken Comments Blood Pressure 120/80 05/11/2024 9:42 AM CLINICAL SPECIALIST MEDICAL DEVICE Pulse 55 05/11/2024 9:42 AM CLINICAL SPECIALIST MEDICAL DEVICE Temperature 36.3 C (97.3 F) 05/11/2024 9:42 AM CLINICAL SPECIALIST MEDICAL DEVICE Respiratory Rate 16 03/03/2024 9:28 AM CLINICAL SPECIALIST MEDICAL DEVICE Oxygen Saturation 94% 05/11/2024 9:42 AM CLINICAL SPECIALIST MEDICAL DEVICE Inhaled Oxygen Concentration - - Weight 99.8 kg (220 lb) 05/11/2024 9:42 AM CLINICAL SPECIALIST MEDICAL DEVICE Height 180.3 cm (5' 11 ) 05/11/2024 9:42 AM CLINICAL SPECIALIST MEDICAL DEVICE Body Mass Index 30.68 05/11/2024 9:42 AM CLINICAL SPECIALIST MEDICAL DEVICE Plan of Treatment Upcoming Encounters Date Type Department Care Team (Late st Contact Info) Description 07/23/2024 2:45 PM CDT Physical [facility] [address] [address] William Harrison MD [address] [facility] [address] [place] [address] Evie Arechiga, PT [place] Discharge Disposition: Discharged to home or Selfcare 09/03/2024 8:30 AM CDT [facility] [address] [place] [address] MichelDonna August, PAC [address] [place] [address] Discharge Disposition: Discharged to home or Selfcare 09/03/2024 9:40 AM CDT [facility] [address] [place] [address] MichelDonna August, PAC [address] [place] [address] Renan Hernandez MD [address] [place] [address] Discharge Disposition: Discharged to home or Selfcare 09/03/2024 10:30 AM CDT Clinical Support [facility] Services [address] [place] [address] MichelJennyfere August, PAC [address] [place] [address] Discharge Disposition: Discharged to home or Selfcare 09/14/2024 10:45 AM CDT Office Visit [facility] Medical Group - Family Medicine [facility] #[address] [place] [address] Ran Thacker MD [facility] [address] [address] Health Maintenance Due Date Last Done Comments [...] 12.00 10(3)/mcL 06/01/2024 1:20 PM CDT [facility] RBC 5.18 4.40 - 5.80 10(6)/mcL 06/01/2024 1:20 PM CDT [facility] HEMOGLOBIN (HGB) 15.4 13.0 - 16.5 g/dL 06/01/2024 1:20 PM CDT [facility] HEMATOCRIT (HCT) 47.0 38.0 - 50.0 % 06/01/2024 1:20 PM CDT [facility] MCV 90.7 82.0 - 96.0 fL 06/01/2024 1:20 PM CDT [facility] MCH 29.7 26.0 - 32.0 pg 06/01/2024 1:20 PM CDT [facility] MCHC 32.8 31.0 - 36.0 g/dL 06/01/2024 1:20 PM CDT [facility] PLATELET COUNT 144 140 - 440 10(3)/mcL 06/01/2024 1:20 PM CDT [facility] RDW 12.8 11.8 - 15.5 % 06/01/2024 1:20 PM CDT [facility] MPV 11.5 8.0 - 12.6 fL 06/01/2024 1:20 PM CDT [facility] NEUTROPHILS 65.3 40.0 - 68.0 % 06/01/2024 1:20 PM CDT [facility] LYMPHOCYTES 22.3 19.0 - 49.0 % 06/01/2024 1:20 PM CDT [facility] MONOCYTES 8.5 3.0 - 13.0 % 06/01/2024 1:20 PM CDT [facility] EOSINOPHILS 3.5 0.0 - 8.0 % 06/01/2024 1:20 PM CDT [facility] BASOPHILS 0.4 0.0 - 1.0 % 06/01/2024 1:20 PM CDT [facility] ABSOLUTE NEUTROPHILS 4.89 1.40 - 5.30 10(3)/mcL 06/01/2024 1:20 PM CDT [facility] ABSOLUTE LYMPHOCYTES 1.67 0.90 - 3.30 10(3)/mcL 06/01/2024 1:20 PM CDT [facility] ABSOLUTE MONOCYTES 0.64 0.10 - 0.90 10(3)/mcL 06/01/2024 1:20 PM CDT [facility] ABSOLUTE EOSINOPHIL 0.26 0.00 - 0.50 10(3)/mcL 06/01/2024 1:20 PM CDT [facility] ABSOLUTE BASOPHILS 0.03 0.00 - 0.10 10(3)/mcL 06/01/2024 1:20 PM CDT [facility] NRBC PER 100 WBC 0 06/02/19 1:20 PM CDT [facility] Blood Venipuncture / Unknown 06/01/2024 1:10 PM CDT 06/01/2024 1:10 PM CDT Result [facility] PAC HEMATOLOGY ORDERABLES Fin al Result Performing Organization Address City/[facility]/ZIP Co de Phone Number [facility] [address] [place] [address] * VITAMIN B12 (06/01/2024 1:10 PM CDT) VITAMIN B12 572 213 - 816 pg/mL 06/01/2024 2:34 PM CDT [facility] Blood Venipuncture / Unknown 06/01/2024 1:10 PM CDT 06/01/2024 1:10 PM CDT Result [facility] CHEMISTRY ORDERABLES Estella l Result Performing Organization Address City/[facility] Co de Phone Number [facility] [place] [address] * URINE DRUG SCREEN (05/11/2024) Saliva 05/11/2024 Ran Thacker MD URINE ORDERABLES Final Re sult from Last 3 Months Insurance MEDICAID [facility] PLAN Advance Directives Documents on File Type Date Recorded Patient Inspector Advanced Composite Expl anation Power of Burlapper for Health Care 01/08/2024 10:05 AM POA Power of Burlapper for Health Care 12/27/2022 3:34 PM POA MEDICAL Care Teams Stitchdowns Toe Former Relationship Specialty Start Date End Date Ran Thacker MD #2 [facility] [address] [place] [address] PCP - General Family Medicine 11/30/22 Korey Matute MD [address]2 [place] [address] Consulting Physician Neurology 02/01/23 Fernando Camarillo MD #2 [facility] [address] [place] [address] Consulting Physician Colon and Rectal Surgery 01/31/24
--- OUTSIDE RECORDS SUMMARY | 2024-07-21 10:16 | XMS_ITS | Referral Summary ---
Author Organization [facility] Address [address] [place] [address] Care Team Providers Care Portable Track Line Marker Name Role Phone Ran Thacker MD Primary Care Provider [phone] Encounters Date Type Department Care Team Description 07/14/2024 6:45 PM CDT Office Visit [facility] at [address] [address] Mariam Cordero NP Anal pain (Primary Dx) 07/12/2024 Results Follow-Up [facility] Care at [address] [address] Sugar Hernández PA 07/10/2024 3:37 PM CDT - 07/10/2024 11:59 PM CDT Hospital Encounter [address] [address] Possible exposure to STI Discharge Disposition: Discharge to home or self care 07/10/2024 4:15 PM CDT Office Visit [facility] at [address] [address] Silvia Brown NP Possible exposure [...] CDT) HSV DNA Not Detected Not Detected [facility] Comment: Interpretive Data This assay is performed [...] last reviewed on 07/15/2018 Testing performed by: [facility], [address] [place] [address]., [address] Penile 07/10/2024 3:37 PM CDT 07/11/2024 6:40 PM CDT Silvia Brown NP LAB MICROBIOLOGY - GENERAL ORD ERABLES Final Result [facility] [address] [place] [address] [facility] * N. gonorrhoeae/C. trachomatis Amplification Urine (07/10/2024 3:37 PM CDT) Pathologist [facility] C. trachomatis Not Detected [facility] Comment:Testing performed by : [facility], [address] [place] [address]., [address] N. gonorrhoeae Not Detected [facility] Comment: Interpretive Data This assay detects Chlamydia trachomatis and Neisseria gonorrhoeae by nucleic acid amplification testing (NAAT). This assay has been cleared by the [place] Food and Drug administration. The performance characteristics of this test have been verified by the [facility] Molecular Infectious Disease laboratory. The performance characteristics of this test have not been evaluated in individuals less than 14 years of age. Current Interpretive Data was last revised on 2023. Testing performed by: [facility], [address] [place] [address]., [id number] Urine (None) 07/10/2024 3:37 PM CDT 07/11/2024 6:43 PM CDT Silvia Brown NP LAB MICROBIOLOGY - GENERAL ORD ERABLES Final Result Performing Organization Address [facility] de Phone Number RAD [phone] [address] [facility] [place] [address] [facility] * Trichomonas vaginalis PCR Urine (07/10/2024 3:37 PM CDT) Pathologist [facility] Trichomonas DNA Not Detected [facility] Comment: Interpretive Data This assay detects Trichomonas vaginalis by nucleic acid amplification testing (NAAT). This assay has been cleared by the [place] Food and Drug administration. The performance characteristics of this test have been verified by the [facility] Molecular Infectious Disease laboratory. The performance of this test has not been evaluated in individuals less than 18 years of age. Current Interpretive Data was last revised on 2023. Testing performed by: [facility], [address] [place] [address]., [address] Urine 07/10/2024 3:37 PM CDT 07/11/2024 6:43 PM CDT Silvia Brown NP LAB MICROBIOLOGY - GENERAL ORD ERABLES Final Result Performing Organization Address [facility] Co de Phone Number RAD [address] [address] [facility] [place] [address] [facility] from Last 3 Months Insurance [place] [facility] PLAN [facility] Care Teams Portable Track Line Marker Relationship Specialty Start Date End Date Ran Thacker MD [address] [address] PCP - General Family Medicine 07/10/24
--- OUTSIDE RECORDS SUMMARY | 2024-07-21 10:16 | XMS_ITS | Encounter Summary ---
Author Organization [facility] Address [address] [place] [address] Phone Care Team Providers Care Clinic Lpn Name Role Phone Ran Thacker MD Primary Care Provider [phone] Korey Matute MD Unavailable [phone] Fernando Camarillo MD Unavailable Reason for Visit * Reason Onset Date Comments Medication Management 01/10/2024 Encounter Details Date Type Department Care Team (Late st Contact Info) Description 01/10/2024 Telephone [facility] [address] [place] [address] Ran Thacker MD [address] [address] Medication Management Social History Tobacco Use Types Packs/Day Years Used Date Smoking Tobacco: Former Cigarettes Smokeless Tobacco: Never Alcohol Use Standard Drinks/Week Comments Not Currently 0 (1 standard drink = 0.6 oz pur e alcohol) [facility] Utilities Answer Date Recorded In the past 12 months has [employer], gas, oil, or water company threatened to [...] How often do you attend chur or muslim services? Patient declined 01/08/2024 Do you belong to any clubs o r organizations such as christian groups, unions, fraternal or athletic groups, or [...] Score - Questions 1-9 0 09/16 [facility] of Occupat ional Health - Occupational Stress [...] in a penitentiary (including now)? No 04/03/2023 Housing Stability Vital Sign Answer Mookie e Recorded In the last 12 months, was t here a time when you were not able to pay the mortgage or rent on time? No 01/08/2024 In the past 12 months, how m any times have you moved where you were living? 0 01/08/2024 At any time in the past 12 m [facility], were you homeless or living in a penitentiary (including now)? No 01/08/2024 Sex and Gender [...] Background: Mitch Frias 1985 contact phone # [phone] Callers concern: Medication refills Action: Name of Medication: Baclofen Dose: 10mg Frequency: three times daily Route: Oral Directions: N/A Ordering Provider: Dr. Thacker Pharmacy: [place], [place] Name of Medication: Oxycodone-Acetaminophen Dose: 10-325 Frequency: Twice daily as needed Route: Oral Directions: Take twice daily as needed Ordering Provider: Dr. Thacker Pharmacy: [facility] in [place], [place] Recommendation: Route high priority to surescripts pool. documented in this encounter Plan of Treatment Upcoming Encounters Date Type Department Care Team (Late st Contact Info) Description 07/23/2024 2:45 PM CDT Physical Therapy [facility] at [facility] [address] [facility], [address] [address] William Harrison MD [address] [address] Evie Arechiga, PT [place] Discharge Disposition: Discharged to home or Selfcare 09/03/2024 8:30 AM CDT [facility] [address] [place] [address] Donna Michel Meghna, PAC [address] [place] [address] Discharge Disposition: Discharged to home or Selfcare 09/03/2024 9:40 AM CDT Office Visit [facility] Oncology Services [address] [place] [address] Donna Michel Meghna, PAC [address] [place] [address] Renan Hernandez MD [address] [place] [address] Discharge Disposition: Discharged to home or Selfcare 09/03/2024 10:30 AM CDT Clinical Support [facility] Oncology Services [address] [place] [address] Donna Michel Meghna, [facility] [address] [place] [address] Discharge Disposition: Discharged to home or Selfcare 09/14/2024 10:45 AM CDT [facility] Visit [facility] [address] [place] [address] Ran Thacker MD #[address] [address] documented as of this encounter Visit Diagnoses Diagnosis History of back surgery Other postprocedural status Chronic bilateral thoracic back pain documented in this encounter Additional Health Concerns Assessment Noted Time PHQ-9 Depression Total Score: 0 10/10/19 1:23 PM CDT documented as of this encounter Care Teams Clinic Lpn Relationship Specialty Start Date End Date Ran Thacker MD #[address] [address] PCP - General Family Medicine 11/30/22 Korey Matute MD #[address] [place] [address] Consulting Physician Neurology 02/01/23 Fernando Camarillo MD #[address] [address] Consulting Physician Colon and Rectal Surgery 01/31/24 documented as of this encounter
--- OUTSIDE RECORDS SUMMARY | 2024-07-21 10:16 | XMS_ITS | Encounter Summary ---
Author Organization [facility] Address [address] [place] [address] Phone Care Team Providers Care Risk Intern Name Role Phone Ran Thacker MD Primary Care Provider [phone] Milena Chakraborty Unavailable Unavailab Milena Pollard Unavailable Unavailab Korey Mccloud MD Unavailable [phone] Fernando Camarillo MD Unavailable Reason for Visit * Reason Comments Medication Refill Encounter Details Date Type Department Care Team (Late st Contact Info) Description 01/24/2023 Refill [facility] - Family Medicine [facility] [address] [place] [address] Ran Thacker MD #[address] [address] Medication Refill Social History Tobacco Use Types [...] Coronavirus/COVID-19? No / Unsure 01/25/2023 9:16 AM VISUAL EDUCATION DIRECTOR documented as of this encounter Miscellaneous Notes * Telephone Encounter - Jaycee Soto RN - 01/24/2023 8:51 AM VISUAL EDUCATION DIRECTOR Medication failed the protocol, provider to review [...] 90 days and meeting all other requirements AL EDUCATION DIRECTOR documented in this encounter Plan of Treatment Upcoming Encounters Date Type Department Care Team (Late st Contact Info) Description 07/23/2024 2:45 PM CDT Physical Therapy [facility] at [facility] [address] [address] William Harrison MD [address] [address] Evie Arechiga, PT [place] Discharge Disposition: Discharged to home or Selfcare 09/03/2024 8:30 AM CDT Lab [facility]cology Services [address] [place] [address] NoatakDonna Meghna, PAC [address] [place] [address] Discharge Disposition: Discharged to home or Selfcare 09/03/2024 9:40 AM CDT Office Visit [facility] Oncology Services [address] [place] [address] NoatakDonna August, PAC [address] [place] [address] Renan Hernandez MD [address] [place] [address] Discharge Disposition: Discharged to home or Selfcare 09/03/2024 10:30 AM CDT Clinical Support [facility] Oncology Services [address] [place] [address] NoatakDonna Meghna, PAC [address] [place] [address] Discharge Disposition: Discharged to home or Selfcare 09/14/2024 10:45 AM CDT Office Visit [facility] - Family Medicine [facility] [address] [place] [address] Ran Thacker MD #[address] [address] documented as of this encounter Visit Diagnoses Not on filedocumented in this encounter Additional Health Concerns Infection Onset Date Last Indicated Resolved Time COVID - 19 03/28/2023 03/28/2023 04/07/2023 12:1 6 AM VISUAL EDUCATION DIRECTOR documented as of this encounter Care Teams Risk Intern Relationship Specialty Start Date End Date Ran Thacker MD [address]2 [place] [address] [place] [address] PCP - General Family Medicine 11/30/22 Milena Chakraborty LSW [place] [employer] 12/27/22 04/03/23 Milena Chakraborty LSW [place] [employer] Lead 12/27/22 06/24/23 Korey Matute MD #[address] [place] [address] Consulting Physician Neurology 02/01/23 Fernando Camarillo MD [address] [place] [address] [place] [address] Consulting Physician Colon and Rectal Surgery 01/31/24 documented as of this encounter
--- OUTSIDE RECORDS SUMMARY | 2024-07-21 10:16 | XMS_ITS | Clinical Summary ---
Author Organization [facility] Address [address] [place] [address] Care Team Providers Care Director Voice Name Role Phone Ran Thacker MD Primary Care Provider [phone] [facility],non-owned Affiliates and Associated Physician Practices is amultiple site organization consisting of ambulatory clinics and hospital sitesin [place], [place] and [place]. This disclosure is being madepursuant to the Care Everywhere program and may not contain all information available regarding this patient. Last updated 17.[facility] Allergies No known active allergies Medications * [...] Active vitamin D, ergocalciferol, (Drisdol) 1.25 MG (91723 UT) capsule Take 1 (one) capsule by [...] visit [facility]rology [address] [facility], [place] [address] William Harrison MD Muscle spasticity ; Spasticity 06/02/2024 Travel 04/23/2024 Telephone [facility] [address] [facility], [place] [address] William Harrison MD Care Management from Last [...] Description 09/01/2024 10:30 AM CDT Procedure visit [facility] - Neurology [address] [place] [address] William Harrison MD [address] [place] [address] 1L [place] [address] 10/29/2024 10:30 AM CDT Office Visit [facility] - Orthopedics [address] [place] [address] Baltazar Gonzales MD [address] [place] [address] DIV [place] [address] 12/01/2024 2:30 PM CDT Procedure visit [facility] - Neurology [address] [place] [address] William Harrison MD [address] [place] [address] 1L [place] [address] Health Maintenance Due Date Last Done Comments [...] this topic Medical Devices Implanted Type Area Finish Filer Device Identifier Shelf Expiration Date Model / Serial / Lot Screw 5.5mm 30mm Ma Spne Solera Cd Hzn Implanted:Qty: 4 on 11/07/2021 by Baltazar Gonzales MD at [facility] N/A: Spine Thoracic [employer] [id number] / / Screw 5.5mm 35mm Ma Spne Solera Cd Hzn Implanted:Qty: 4 on 11/07/2021 by Baltazar Gonzales MD at [facility] N/A: Spine Thoracic [employer] [id number] / / Screw Set Ti Spnl Brk Off Cd Hzn Nonster Implanted:Qty: 14 on 11/07/2021 by Baltazar Gonzales MD at [facility] N/A: Spine Thoracic [employer] [id number] / / Screw 5.5mm 40mm Ma Spne Solera Cd Hzn Implanted:Qty: 3 on 11/07/2021 by Baltazar Gonzales MD at [facility] N/A: Spine Thoracic [employer] Inc [id number] / / Screw 6.5mm 40mm Ma Spne Solera Cd Hzn Implanted:Qty: 3 on 11/07/2021 by Baltazar Gonzales MD at [facility] N/A: Spine Thoracic [employer] Inc [id number] / / Jaime Implanted:Qty: 1 on 11/07/2021 by Baltazar Gonzales MD at [facility] N/A: Spine Thoracic [employer] Inc [id number] / / Graft Bone Grftn Dbm Plif 10x2.5cm - [id number] Implanted:Qty: 1 on 11/07/2021 by Baltazar Gonzales MD at [facility] N/A: Spine Thoracic [employer] 09/03/2024 [id number] / [id number] / Procedures Procedure Name Priority Date/Time Associated Diagnosis Comments MI CHEMODENERV 1 EXTREM 1-4 EA Routine 06/02/2024 2:48 PM CDT Muscle spasticity MI CHEMODENERV ONE EXTREM 1-4 MUSCLES Routine 06/02/2024 2:48 PM CDT Muscle spasticity MI NDL EMG GDN CONJUNCT CHEMODNRVTJ Routine 06/02/2024 2:48 PM CDT Muscle spasticity from Last 3 Months Results * MI NDL EMG GDN CONJUNCT CHEMODNRVTJ, MI CHEMODENERV ONE EXTREM 1-4 MUSCLES, MI CHEMODENERV 1 EXTREM1-4 EA (06/02/2024 2:48 PM CDT) Narrative William Harrison MD - 06/02/2024 2:48 PM CDT William Harrison MD 06/02/2024 2:49 PM See procedure note for documentation. William Harrison MD PROCEDURE/MINOR SURGICAL ORDERAB LES Final Result from Last 3 Months Insurance [facility] Advance Directives * Full Code (Latest Code Status on File) Date Activated Date Inactivated Comments 11/06/2021 1:39 AM 11/24/2021 9:50 PM Care Teams Director Voice Relationship Specialty Start Date End Date Ran Thacker MD [address] [address] PCP - General Family Medicine 06/20/23
--- OUTSIDE RECORDS SUMMARY | 2024-07-21 10:16 | XMS_ITS | Encounter Summary ---
Author Organization [facility] Address [address] [place] [address] Phone Care Team Providers Care Appraiser Real Estate Name Role Phone Ran Thacker MD Primary Care Provider [phone] Korey Matute MD Unavailable [phone] Fernando Camarillo MD Unavailable Reason for Visit * Reason Comments Medication Refill Encounter Details Date Type Department Care Team (Late st Contact Info) Description 07/29/2023 Refill [facility] Group - Family Medicine [facility] #2 [place] [address] Ran Thacker MD #[address] [address] Medication Refill Social History Tobacco Use Types Packs/Day Years Used Date Smoking Tobacco: Former Cigarettes Smokeless Tobacco: Never Alcohol Use Standard Drinks/Week Comments Not Currently 0 (1 standard drink = 0.6 oz pur e alcohol) [facility] Utilities Answer Date Recorded In the past 12 months has [employer], gas, oil, or water [employer] threatened to shut off services in your [...] often do you attend chur ch or adventism services? Never 04/03/2023 Do you belong to any clubs o r organizations such as orthodoxy groups, unions, fraternal or athletic groups, or [...] Total Score - Questions 1-9 0 03/18 [facility] of Occupat ional Health - Occupational Stress [...] place to sleep or slept in a half-way (including now)? No 04/03/2023 Sex and Gender [...] Description 07/23/2024 2:45 PM CDT Physical Therapy [facility] at [facility] [address], [address] [place] [address] William Harrison MD [address] [address] Evie Arechiga, PT [place] Discharge Disposition: Discharged to home or Selfcare 09/03/2024 8:30 AM CDT [facility] [place] [address] [place] [address] Donna Michel August, PAC [address] [place] [address] Discharge Disposition: Discharged to home or Selfcare 09/03/2024 9:40 AM CDT Office Visit [facility] Oncology Services [address] [place] [address] Donna Michel August, PAC [address] [place] [address] Renan Hernandez MD [address] [place] [address] Discharge Disposition: Discharged to home or Selfcare 09/03/2024 10:30 AM CDT Clinical Support [facility] Oncology Services [address] [place] [address] Donna Michel August, PAC [address] [place] [address] Discharge Disposition: Discharged to home or Selfcare 09/14/2024 10:45 AM CDT Office Visit [facility] #2 [place] [address] Ran Thacker MD #2 [facility] [address] [place] [address] documented as of this encounter Visit Diagnoses Not on filedocumented in this encounter Additional Health Concerns Assessment Noted Time PHQ-9 Depression Total Score: 0 04/03/19 9:52 AM CERTIFIED HEALTH EDUCATION SPECIALIST documented as of this encounter Care Teams Appraiser Real Estate Relationship Specialty Start Date End Date Ran Thacker MD #[address] [address] PCP - General Family Medicine 11/30/22 Korey Matute MD #2 [place] [address] Consulting Physician Neurology 02/01/23 Fernando Camarillo MD #[address] [address] Consulting Physician Colon and Rectal Surgery 01/31/24 documented as of this encounter
--- OUTSIDE RECORDS SUMMARY | 2024-07-21 10:16 | XMS_ITS | Encounter Summary ---
Author Organization [facility] Address [address] [place] [address] Care Team Providers Care Real Estate Investment Analyst Name Role Phone Ran Thacker MD Primary Care Provider [phone] Encounter Details Date Type Department Care Team (Late st Contact Info) Description 07/12/2024 Results Follow-Up [facility] Convenient Care at [address] [address] Sugar Hernández PA [address] [place] [address] [address] [place] [address] Social History Tobacco Use Types [...] on filedocumented in this encounter Care Teams Real Estate Investment Analyst Relationship Specialty Start Date End Date Ran Thacker MD 2 [place] [address] PCP - General Family Medicine 07/10/24 documented as of this encounter
--- OUTSIDE RECORDS SUMMARY | 2024-07-21 10:16 | XMS_ITS | Encounter Summary ---
Author Organization [facility] Address [address] [place] [address] Phone Care Team Providers Care Roll Picker Name Role Phone Ran Thacker MD Primary Care Provider [phone] Milena Chakraborty Unavailable Unavailab Korey Mccloud MD Unavailable [phone] Fernando Camarillo MD Unavailable Reason for Visit * Reason Comments Medication Refill Encounter Details Date Type Department Care Team (Late st Contact Info) Description 04/25/2023 Refill [facility] Group - Family Medicine [facility] #2 [place] [address] Ran Thacker MD #[address] [address] Medication Refill Social History Tobacco Use Types Packs/Day Years Used Date Smoking Tobacco: Never Smokeless Tobacco: Never Alcohol Use Standard Drinks/Week Comments Never 0 (1 standard drink = 0.6 oz pur e alcohol) [facility] Utilities Answer Date Recorded In the past [...] often do you attend chur ch or episcopal services? Never 04/03/2023 Do you belong to any clubs o r organizations such as adventism groups, unions, fraternal or athletic groups, or [...] Total Score - Questions 1-9 0 03/18 [facility] of Occupat ional Health - Occupational [...] CST Needs lab work prior to refill. ESTATE AGENCY PRINCIPAL documented in this encounter Plan of Treatment Upcoming Encounters Date Type Department Care Team (Late st Contact Info) Description 07/23/2024 2:45 PM CDT [facility] [address] [address] William Harrison MD [address] [facility] [address] [place] [address] Evie Arechiga, PT [place] Discharge Disposition: Discharged to home or Selfcare 09/03/2024 8:30 AM CDT [facility] [address] [place] [address] Donna Michel, PAC [address] [place] [address] Discharge Disposition: Discharged to home or Selfcare 09/03/2024 9:40 AM CDT Office Visit [facility] Oncology Services [address] [place] [address] MichelDonna August, PAC [address] [place] [address] Renan Hernandez MD 0 [place] [address] Discharge Disposition: Discharged to home or Selfcare 09/03/2024 10:30 AM CDT Clinical Support [facility] Oncology Services 0 [place] [address] [facility] August, PAC [address] [place] [address] Discharge Disposition: Discharged to home or Selfcare 09/14/2024 10:45 AM CDT Office Visit [facility] Medical Group - Family Medicine [facility] #2 [place] [address] Ran Thacker MD #[address] [address] documented as of this encounter Visit Diagnoses Not on filedocumented in this encounter Additional Health Concerns Assessment Noted Time PHQ-9 Depression Total Score: 0 04/03/19 24 9:52 AM REAL ESTATE AGENCY PRINCIPAL documented as of this encounter Care Teams Roll Picker Relationship Specialty Start Date End Date Ran Thacker MD #[address] [address] PCP - General Family Medicine 11/30/22 Milena Chakraborty LSW [place] Cloth Laminating Supervisor Photograph Inspector 12/27/22 06/24/23 Korey Matute MD #2 [place] [address] Consulting Physician Neurology 02/01/23 Fernando Camarillo MD #[address] [address] Consulting Physician Colon and Rectal Surgery 01/31/24 documented as of this encounter
--- OUTSIDE RECORDS SUMMARY | 2024-07-21 10:16 | XMS_ITS | Encounter Summary ---
Author Organization [facility] Address [address] [place] [address] Phone Care Team Providers Care Field Gauger Name Role Phone Ran Thacker MD Primary Care Provider [phone] Korey Matute MD Unavailable [phone] Fernando Camarillo MD Unavailable Reason for Visit * Reason Comments Medication Refill Encounter Details Date Type Department Care Team (Late st Contact Info) Description 12/18/2023 Refill [facility] Group - Family Medicine [facility] #2 [place] [address] Ran Thacker MD #[address] [id number] Medication Refill Social History Tobacco Use Types Packs/Day Years Used Date Smoking Tobacco: Former Cigarettes Smokeless Tobacco: Never Alcohol Use Standard Drinks/Week Comments Not Currently 0 (1 standard drink = 0.6 oz pur e alcohol) [facility] Utilities Answer Date Recorded In the past 12 months has [employer], gas, oil, or water [employer] threatened to shut off services in your [...] often do you attend chur ch or cheondoism services? Never 04/03/2023 Do you belong to any clubs o r organizations such as christianity groups, unions, fraternal or athletic groups, or [...] Total Score - Questions 1-9 0 09/16 [facility] [place] of Occupat ional Health - Occupational Stress [...] No 04/03/2023 Housing Stability Vital Sign Answer Mookei e Recorded In the last 12 months, [...] to sleep or slept in a senior living (including now)? No 04/03/2023 Sex and Gender [...] Pending Prescriptions Disp Refills ergocalciferol (VITAMIN D) 42344 UNIT Capsule [Pharmacy Med Name: VITAMIN D2 [...] [facility] at [address] [address] William Harrison MD [address] [facility] [address] [place] [address] Evie Arechiga, PT [place] Discharge Disposition: Discharged to home or Selfcare 09/03/2024 8:30 AM CDT [facility] [address] [place] [address] Donna Michel, PAC [address] [place] [address] Discharge Disposition: Discharged to home or Selfcare 09/03/2024 9:40 AM CDT [facility] [address] [place] [address] Donna Michel August, PAC [address] [place] [address] Renan Hernandez MD [address] [place] [address] Discharge Disposition: Discharged to home or Selfcare 09/03/2024 10:30 AM CDT [facility] [address] [place] [address] Donna Michel August, PAC [address] [place] [address] Discharge Disposition: Discharged to home or Selfcare 09/14/2024 10:45 AM CDT Office Visit [facility] - Family Medicine [facility] #2 [place] [address] Ran Thacker MD #[address] [address] documented as of this encounter Results * VITAMIN D, 25 HYDROXY TOTAL (01/09/2024 10:20 AM CDT) VITAMIN D, 25 HYDROX 33.4 ng/mL 01/09/2024 11:30 AM CDT [facility] Blood Venipuncture / Unknown 01/09/2024 10:20 AM CDT 01/09/2024 10:45 AM CDT Narrative [facility] - 01/09/2024 11:30 AM CDT Published reference ranges for Vitamin D vary depending on time and place and method of testing, and on patient's age, sex, ethnicity and levels of other measured analytes such as parathormone, calcium and phosphorus. The result should be evaluated in conjunction with clinical findings and suspicions. [place] of [facility] and Endocrine Clinical Practice Guidelines: Status Vitamin D levels (ng/mL) Deficient <=20 At risk of inadequacy 21-29 Sufficient 30-100 Centers of Disease Control and Prevention Guidelines: Status Vitamin D levels (ng/mL) Deficient <13 At risk of inadequacy 13-19 Sufficient 20-50 Possibly harmful >50 References: [place] of [employer], 2010 Dietary reference intakes for calcium and vitamin D. [place]: The National Academies Press. Vicente M, Evelia N, Kristine BURNS, et al., Evaluation, treatment, and prevention of Vitamin D deficiency: an Endocrinology Clinical Practice Guideline. JCEM 2011 96: 7 2160-7050. Eliseo A, Barry C, Arnulfo D, et al., Vitamin D Status: [place], , [facility] data brief, no. 59, [place]: National Center for Health Statistics. 2011. Ran Thacker MD CHEMISTRY ORDERABLES Estella salazar Result [facility] #1 [place] [address] documented in this encounter Visit Diagnoses Diagnosis Vitamin D deficiency Unspecified vitamin D deficiency documented in this encounter Additional Health Concerns Assessment Noted Time PHQ-9 Depression Total Score: 0 10/10/19 24 1:23 PM CDT documented as of this encounter Care Teams Field Gauger Relationship Specialty Start Date End Date Ran Thacker MD #[address] [address] PCP - General Family Medicine 11/30/22 Korey Matute MD #2 [place] [address] Consulting Physician Neurology 02/01/23 Fernando Camarillo MD #2 [place] [address] Consulting Physician Colon and Rectal Surgery 01/31/24 documented as of this encounter
--- OUTSIDE RECORDS SUMMARY | 2024-07-21 10:16 | XMS_ITS | Encounter Summary ---
Author Organization [facility] Address [address] [place] [address] Phone Care Team Providers Care Flight Communications Operator Name Role Phone Ran Thacker MD Primary Care Provider [phone] Korey Matute MD Unavailable [phone] Fernando Camarillo MD Unavailable Reason for Visit * Reason Comments Medication Refill Encounter Details Date Type Department Care Team (Late st Contact Info) Description 09/26/2023 Refill [facility] Medical Group - Family Medicine [facility] #2 [place] [address] Ran Thacker MD #[address] [id number] Medication Refill Social History Tobacco Use Types Packs/Day Years Used Date Smoking Tobacco: Former Cigarettes Smokeless Tobacco: Never Alcohol Use Standard Drinks/Week Comments Not Currently 0 (1 standard drink = 0.6 oz pur e alcohol) [facility] Utilities Answer Date Recorded In the past 12 months has [employer], gas, oil, or water [employer] threatened to shut off services in your [...] often do you attend chur ch or jehovah's witness services? Never 04/03/2023 Do you belong to any clubs o r organizations such as judaism groups, unions, fraternal or athletic groups, or [...] Total Score - Questions 1-9 0 03/18 [facility] [place] of Occupat ional Health - Occupational Stress [...] place to sleep or slept in a chcf (including now)? No 04/03/2023 Sex and Gender [...] Pending Prescriptions Disp Refills ergocalciferol (VITAMIN D) 16178 UNIT Capsule [Pharmacy Med Name: VITAMIN D2 [...] Description 07/23/2024 2:45 PM CDT [facility] [address] [place] [address] [employer], [facility] H[address] [place] [address] William Harrison MD [address] [facility] [address] [place] [address] Evie Arechiga, PT [place] Discharge Disposition: Discharged to home or Selfcare 09/03/2024 8:30 AM CDT [facility] [address] [place] [address] MichelDonna August, PAC 0 [place] [address] Discharge Disposition: Discharged to home or Selfcare 09/03/2024 9:40 AM CDT [facility] [address] [place] [address] MichelDonna August, PAC [address] [place] [address] Renan Hernandez MD [address] [place] [address] Discharge Disposition: Discharged to home or Selfcare 09/03/2024 10:30 AM CDT Clinical Support [facility] Oncology Services [address] [place] [address] MaricaoDonna August, PAC [address] [place] [address] Discharge Disposition: Discharged to home or Selfcare 09/14/2024 10:45 AM CDT Office Visit [facility] Medical Group - Family Medicine [facility] #2 [place] [address] Ran Thacker MD #[address] [address] documented as of this encounter Visit Diagnoses Diagnosis Vitamin D deficiency Unspecified vitamin D deficiency documented in this encounter Additional Health Concerns Assessment Noted Time PHQ-9 Depression Total Score: 0 04/03/19 24 9:52 AM PICKLE PUMPER documented as of this encounter Care Teams Flight Communications Operator Relationship Specialty Start Date End Date Ran Thacker MD #[address] [address] PCP - General Family Medicine 11/30/22 Korey Matute MD #2 [place] [address] Consulting Physician Neurology 02/01/23 Fernando Camarillo MD #[address] [address] Consulting Physician Colon and Rectal Surgery 01/31/24 documented as of this encounter
--- OUTSIDE RECORDS SUMMARY | 2024-07-21 10:16 | XMS_ITS | Encounter Summary ---
Author Organization [facility] Address [address] [place] [address] Phone Care Team Providers Care Industrial Gas Servicer Supervisor Name Role Phone Ran Thacker MD Primary Care Provider [phone] Milena Chakraborty Unavailable Unavailab Milena Pollard Unavailable Unavailab Korey Mccloud MD Unavailable [phone] Fernando Camarillo MD Unavailable Reason for Visit * Reason Comments Medication Refill Encounter Details Date Type Department Care Team (Late st Contact Info) Description 02/20/2023 Refill [facility] Group - Family Medicine [facility] #2 [place] [address] Ran Thacker MD #[address] [address] Medication Refill Social History Tobacco Use Types [...] Coronavirus/COVID-19? No / Unsure 01/25/2023 9:16 AM SQL REPORT DEVELOPER documented as of this encounter Miscellaneous Notes * Telephone Encounter - Jaycee Soto RN - 02/20/2023 12:32 PM SQL REPORT DEVELOPER Medication failed the protocol, provider to review [...] 90 days and meeting all other requirements REPORT DEVELOPER documented in this encounter Plan of Treatment Upcoming Encounters Date Type Department Care Team (Late st Contact Info) Description 07/23/2024 2:45 PM CDT Physical Therapy [facility] Rehab at [address] [address] William Harrison MD [address] [address] Evie Arechiga, PT [place] Discharge Disposition: Discharged to home or Selfcare 09/03/2024 8:[address] [facility] Oncology Services [address] [place] [address] Donna Michel, PAC [address] [place] [address] Discharge Disposition: Discharged to home or Selfcare 09/03/2024 9:40 AM CDT Office Visit [facility] Oncology Services [address] [place] [address] RoyDonna August, PAC [address] [place] [address] Renan Hernandez MD [address] [place] [address] Discharge Disposition: Discharged to home or Selfcare 09/03/2024 10:30 AM CDT Clinical Support [facility] Oncology Services [address] [place] [address] [facility] August, PAC [address] [place] [address] Discharge Disposition: Discharged to home or Selfcare 09/14/2024 10:45 AM CDT Office Visit [facility] Medical Group - Family Medicine [facility] #2 [place] [address] Ran Thacker MD #[address] [address] documented as of this encounter Visit Diagnoses Not on filedocumented in this encounter Additional Health Concerns Infection Onset Date Last Indicated Resolved Time COVID - 19 03/28/2023 03/28/2023 04/07/2023 12:1 6 AM SQL REPORT DEVELOPER documented as of this encounter Care Teams Industrial Gas Servicer Supervisor Relationship Specialty Start Date End Date Ran Thacker MD #[address] [address] PCP - General Family Medicine 11/30/22 Milena Chakraborty LSW [place] Utilities And Maintenance Supervisor 12/27/22 04/03/23 Milena Chakraborty, HAND EXPANSION ENVELOPE MAKER [place] Desk Clerks Supervisor Utilities And Maintenance Supervisor 12/27/22 06/24/23 Korey Matute MD #2 [place] [address] Consulting Physician Neurology 02/01/23 Fernando Camarillo MD #[address] [address] Consulting Physician Colon and Rectal Surgery 01/31/24 documented as of this encounter
--- OUTSIDE RECORDS SUMMARY | 2024-07-21 10:16 | XMS_ITS | Encounter Summary ---
Author Organization [facility] Address [address] [place] [address] Phone Care Team Providers Care Plant Engineering Manager Name Role Phone Ran Thacker MD Primary Care Provider [phone] Milena Chakraborty Unavailable Unavailab Korey Mccloud MD Unavailable [phone] Fernando Camarillo MD Unavailable Reason for Visit * Reason Comments Medication Refill Encounter Details Date Type Department Care Team (Late st Contact Info) Description 05/23/2023 Refill [facility] - Family Medicine [facility] #2 [place] [address] Ran Thacker MD #[address] [address] Medication Refill Social History Tobacco Use Types Packs/Day Years Used Date Smoking Tobacco: Never Smokeless Tobacco: Never Alcohol Use Standard Drinks/Week Comments Never 0 (1 standard drink = 0.6 oz pur e alcohol) [facility] Utilities Answer Date Recorded In the past [...] often do you attend chur ch or rastafarian services? Never 04/03/2023 Do you belong to [...] Total Score - Questions 1-9 0 03/18 [facility] - Occupational [...] place to sleep or slept in a longterm (including now)? No 04/03/2023 Sex and Gender Information Value Date Recorded Sex Assigned at Not on file Legal Sex Male 10:13 AM CDT Gender Identity Not on file Sexual Orientation Not on file documented as of this encounter Miscellaneous Notes * Telephone Encounter - Jaycee Soto RN - 05/23/2023 8:42 AM CENTRAL STATION OPERATOR Medication failed the protocol, provider to review [...] 90 days and meeting all other requirements RAL STATION OPERATOR documented in this encounter Plan of Treatment Upcoming Encounters Date Type Department Care Team (Ricardo medrano Contact Info) Description 07/23/2024 2:45 PM CDT Physical Therapy [facility] at [facility] 200 [facility], [address] [address] William Harrison MD 3660 [facility] [address] [place] [address] Evie Arechiga, PT [place] Discharge Disposition: Discharged to home or Selfcare 09/03/2024 8:30 AM CDT [facility] [address] [place] [address] Donna Michel August, PAC [address] [place] [address] Discharge Disposition: Discharged to home or Selfcare 09/03/2024 9:40 AM CDT [facility] [address] [place] [address] Donna Michel August, PAC [address] [place] [address] Renan Hernandez MD [address] [place] [address] Discharge Disposition: Discharged to home or Selfcare 09/03/2024 10:30 AM CDT Clinical Support [facility] Services [address] [place] [address] Donna Michel August, PAC [address] [place] [address] Discharge Disposition: Discharged to home or Selfcare 09/14/2024 10:45 AM CDT Office Visit [facility] - Family [facility] #2 [place] [address] Ran Thacker MD #2 [facility] [address] [place] [address] documented as of this encounter Visit Diagnoses Not on filedocumented in this encounter Additional Health Concerns Assessment Noted Time PHQ-9 Depression Total Score: 0 04/03/19 9:52 AM CENTRAL STATION OPERATOR documented as of this encounter Care Teams Plant Engineering Manager Relationship Specialty Start Date End Date Ran Thacker MD #2 [facility] [address] [place] [address] PCP - General Family Medicine 11/30/22 Milena Chakraborty LSW MS Advanced Practice Nurse Psychotherapist Wage And Hour Investigator 12/27/22 06/24/23 Korey Matute MD #2 [place] [address] Consulting Physician Neurology 02/01/23 Fernando Camarillo MD #[address] [address] Consulting Physician Colon and Rectal Surgery 01/31/24 documented as of this encounter
--- OUTSIDE RECORDS SUMMARY | 2024-07-21 10:16 | XMS_ITS | Encounter Summary ---
Author Organization [facility] Address [address] [place] [address] Phone Care Team Providers Care Commercial Singer Name Role Phone Ran Thacker MD Primary Care Provider [phone] Milena Chakraborty DIRECTORY CLERK Unavailable Unavailab Milena Pollard Unavailable Unavailab Korey Mccloud MD Unavailable [phone] Fernando Camarillo MD Unavailable Encounter Details Date Type Department Care Team (Late st Contact Info) Description 01/16/2023 Telephone [facility] at [facility] [address] [place] [address] Cindy Jordan, OT [place] Social [...] Description 07/23/2024 2:45 PM CDT Physical Therapy [facility] at [facility] 200 [facility], [address] [address] William Harrison MD [address] [address] Evie Arechiga, PT [place] Discharge Disposition: Discharged to home or Selfcare 09/03/2024 8:30 AM CDT [facility] [address] [place] [address] Donna Michel August, PAC [address] [place] [address] Discharge Disposition: Discharged to home or Selfcare 09/03/2024 9:40 AM CDT Office Visit [facility] Oncology Services [address] [place] [address] Donna Michel August, PAC [address] [place] [address] Renan Hernandez MD [address] [place] [address] Discharge Disposition: Discharged to home or Selfcare 09/03/2024 10:30 AM CDT Clinical Support [facility] Oncology Services [address] [place] [address] Donna Michel August, PAC [address] [place] [address] Discharge Disposition: Discharged to home or Selfcare 09/14/2024 10:45 AM CDT Office Visit [facility] Medical [facility] - Family [facility] #2 [place] [address] Ran Thacker MD #2 [facility] [address] [place] [address] documented as of this encounter Visit Diagnoses Not on filedocumented in this encounter Additional Health Concerns Infection Onset Date Last Indicated Resolved Time COVID - 19 03/28/2023 03/28/2023 04/07/2023 12:1 6 AM DIRECTOR OF RESTAURANT documented as of this encounter Care Teams Commercial Singer Relationship Specialty Start Date End Date Ran Thacker MD #[address] [address] PCP - General Family Medicine 11/30/22 Milena Chakraborty LSW [place] Lime Boiler 12/27/22 04/03/23 Milena Chakraborty LSW [place] Principal Clerk Typist Lime Boiler 12/27/22 06/24/23 Korey Matute MD #2 [place] [address] Consulting Physician Neurology 02/01/23 Fernando Camarillo MD #[address] [address] Consulting Physician Colon and Rectal Surgery 01/31/24 documented as of this encounter
--- OUTSIDE RECORDS SUMMARY | 2024-07-21 10:16 | XMS_ITS | Encounter Summary ---
Author Organization [facility] Address [address] [place] [address] Phone Care Team Providers Care Brush Clearing Laborer Name Role Phone Ran Thacker MD Primary Care Provider [phone] Milena Chakraborty Unavailable Unavailab Milena Pollard Unavailable Unavailab Korey Mccloud MD Unavailable [phone] Fernando Camarillo MD Unavailable Reason for Visit * Reason Comments Medication Refill Encounter Details Date Type Department Care Team (Late st Contact Info) Description 01/28/2023 Refill [facility] - Family Medicine [facility] #2 [place] [address] Ran Thacker MD #[address] [address] Medication Refill Social History Tobacco Use Types [...] Coronavirus/COVID-19? No / Unsure 01/25/2023 9:16 AM POULTRY CUTTER documented as of this encounter Miscellaneous Notes * Telephone Encounter - Ran Thacker MD - 01/28/2023 4:00 PM POULTRY CUTTER Thanks for clarifying this! I removed Tizanidine from his med list :) TRY CUTTER * Telephone Encounter - Nakia Davis RN [...] Provider Dept 04/04/23 Appointment Ran Thacker MD [facility] Showing future appointments within next 90 days and meeting all other requirements Passed - ALT less than 90 and AST less than 55 on record in past 12 months SGOT (AST) Date Value Ref Range Status 12/27/2022 14 5 - 34 U/L Final SGPT (ALT) Date Value Ref Range Status 12/27/2022 26 0 - 55 U/L Final TRY CUTTER documented in this encounter Plan of Treatment Upcoming Encounters Date Type Department Care Team (Late st Contact Info) Description 07/23/2024 2:45 PM CDT Physical Therapy [facility] [address] [address] William Harrison MD [address] [address] Evie Arechiga, PT [place] Discharge Disposition: Discharged to home or Selfcare 09/03/2024 8:30 AM CDT [facility] [address] [place] [address] Donna Michel August, PAC [address] [place] [address] Discharge Disposition: Discharged to home or Selfcare 09/03/2024 9:40 AM CDT Office Visit [facility] Services [address] [place] [address] Donna Michel August, PAC [address] [place] [address] Renan Hernandez MD [address] [place] [address] Discharge Disposition: Discharged to home or Selfcare 09/03/2024 10:30 AM CDT Clinical [facility] [address] [place] [address] Donna Michel, PAC [address] [place] [address] Discharge Disposition: Discharged to home or Selfcare 09/14/2024 10:45 AM CDT Office Visit [facility] - Family [facility] #2 [place] [address] Ran Thacker MD #[address] [address] documented as of this encounter Visit Diagnoses Not on filedocumented in this encounter Additional Health Concerns Infection Onset Date Last Indicated Resolved Time COVID - 19 03/28/2023 03/28/2023 04/07/2023 12:1 6 AM POULTRY CUTTER documented as of this encounter Care Teams Brush Clearing Laborer Relationship Specialty Start Date End Date Ran Thacker MD #[address] [address] PCP - General Family Medicine 11/30/22 Milena Chakraborty LSW [place] Comparator Operator 12/27/22 04/03/23 Milena Chakraborty LSW [place] Surgical Assistant Comparator Operator 12/27/22 06/24/23 Korey Matute MD #2 [place] [address] Consulting Physician Neurology 02/01/23 Fernando Camarillo MD #2 [facility] [address] [place] [address] Consulting Physician Colon and Rectal Surgery 01/31/24 documented as of this encounter
--- OUTSIDE RECORDS SUMMARY | 2024-07-21 10:16 | XMS_ITS | Clinical Summary ---
Author Organization [facility] Address [address] [place] [address] Care Team Providers Care Supervisor Wire Rope Fabrication Name Role Phone Ran Thacker MD Primary Care Provider [phone] Allergies No known active allergies Medications gabapentin [...] Description 07/14/2024 6:45 PM CDT Office Visit [facility] at [address] [address] Mariam Cordero NP Anal pain (Primary Dx) 07/12/2024 Results Follow-Up [facility] at [address] [address] Sugar Hernández PA 07/10/2024 4:15 PM CDT Office Visit [facility] at [address] [address] Silvia Brown NP Possible exposure to STI (Primary Dx) 07/10/2024 3:37 PM CDT - 07/10/2024 11:59 PM CDT Hospital Encounter [address] [address] Possible exposure to STI Discharge Disposition: Discharge [...] CDT) HSV DNA Not Detected Not Detected [facility] Comment: Interpretive Data This assay is [...] last reviewed on 07/15/2018 Testing performed by: [facility], [address] [place]., [address] Penile 07/10/2024 3:37 PM CDT 07/11/2024 6:40 PM CDT Silvia Brown NP LAB MICROBIOLOGY - GENERAL ORD ERABLES Final Result Performing Organization Address [facility] Co de Phone Number RAD [address] Giuseppe [place] [place] [address] [facility] * N. gonorrhoeae/C. trachomatis Amplification Urine (07/10/2024 3:37 PM CDT) C. trachomatis Not Detected [facility] Comment:Testing performed by : [facility], [address] [place] [address]., [address] N. gonorrhoeae Not Detected [facility] Comment: Interpretive Data This assay detects Chlamydia trachomatis and Neisseria gonorrhoeae by nucleic acid amplification testing (NAAT). This assay has been cleared by the [place] Food and Drug administration. The performance characteristics of this test have been verified by the [facility] Molecular Infectious Disease laboratory. The performance characteristics of this test have not been evaluated in individuals less than 14 years of age. Current Interpretive Data was last revised on 2023. Testing performed by: [facility], [address] [place] [address]., [address] Urine (None) 07/10/2024 3:37 PM CDT 07/11/2024 6:43 PM CDT Silvia Brown NP LAB MICROBIOLOGY - GENERAL ORD ERABLES Final Result Performing Organization Address City/[facility]/ZIP Co de Phone Number RAD EVELIN [address] Giuseppe [facility] [place] [place] [address] [facility] * Trichomonas vaginalis PCR Urine (07/10/2024 3:37 PM CDT) Trichomonas DNA Not Detected [facility] Comment: Interpretive Data This assay detects Trichomonas vaginalis by nucleic acid amplification testing (NAAT). This assay has been cleared by the [place] Food and Drug administration. The performance characteristics of this test have been verified by the [facility] Molecular Infectious Disease laboratory. The performance of this test has not been evaluated in individuals less than 18 years of age. Current Interpretive Data was last revised on 2023. Testing performed by: [facility], [address] [facility], [place]., [address] Urine 07/10/2024 3:37 PM CDT 07/11/2024 6:43 PM CDT us Silvia Brown NP LAB MICROBIOLOGY - GENERAL ORD ERABLES [place] RAD [address] Giuseppe [place] Department [place] [address] [facility] from Last 3 Months Insurance [facility] MICKY FLETCHER [id number] [facility] Care Teams Supervisor Wire Rope Fabrication Relationship Specialty Start Date End Date Ran Thacker MD [address] [address] PCP - General Family Medicine 07/10/24
--- OUTSIDE RECORDS SUMMARY | 2024-07-21 10:16 | XMS_ITS | Encounter Summary ---
Author Organization [facility] Address [address] [place] [address] Phone Care Team Providers Care Rangelands Conservation Laborer Name Role Phone Ran Thacker MD Primary Care Provider [phone] Korey Matute MD Unavailable [phone] Fernando Camarillo MD Unavailable Reason for Visit * Reason Comments Medication Refill Encounter Details Date Type Department Care Team (Late st Contact Info) Description 06/28/2023 Refill [facility] - Family Medicine [facility] #2 [place] [address] Ran Thacker MD #[address] [id number] Medication Refill Social History Tobacco Use Types Packs/Day Years Used Date Smoking Tobacco: Some Days Cigarettes Smokeless Tobacco: Never Alcohol Use Standard Drinks/Week Comments Not Currently 0 (1 standard drink = 0.6 oz pur e alcohol) [facility] Utilities Answer Date Recorded In the past 12 months has [employer], gas, oil, or water [employer] threatened to shut off services in your [...] often do you attend chur ch or sabianist services? Never 04/03/2023 Do you belong to any clubs o r organizations such as lutheran groups, unions, fraternal or athletic groups, or [...] Total Score - Questions 1-9 0 03/18 [facility] Occupat ional Health - Occupational [...] Description 07/23/2024 2:45 PM CDT Physical Therapy [facility] 200 [facility], [address] [address] William Harrison MD [address] [facility] [address] [place] [address] Evie Arechiga, PT [place] Discharge Disposition: Discharged to home or Selfcare 09/03/2024 8:30 AM CDT [facility] [address] [place] [address] Donna Michel August, PAC [address] [place] [address] Discharge Disposition: Discharged to home or Selfcare 09/03/2024 9:40 AM CDT [facility] [address] [place] [address] Donna Michel August, PAC [address] [place] [address] Renan Hernandez MD [address] [place] [address] Discharge Disposition: Discharged to home or Selfcare 09/03/2024 10:30 AM CDT Clinical [facility] [address] [place] [address] Donna Michel August, PAC [address] [place] [address] Discharge Disposition: Discharged to home or Selfcare 09/14/2024 10:45 AM CDT Office Visit [facility] Medical [facility] - Family [facility] #2 [place] [address] Ran Thacker MD #2 [facility] 205 [place] [address] documented as of this encounter Visit Diagnoses Not on filedocumented in this encounter Additional Health Concerns Assessment Noted Time PHQ-9 Depression Total Score: 0 04/03/19 24 9:52 AM QUALITY COMPLIANCE COORDINATOR documented as of this encounter Care Teams Rangelands Conservation Laborer Relationship Specialty Start Date End Date Ran Thacker MD #[address] [address] PCP - General Family Medicine 11/30/22 Korey Matute MD #2 [place] [address] Consulting Physician Neurology 02/01/23 Fernando Camarillo MD #[address] [address] Consulting Physician Colon and Rectal Surgery 01/31/24 documented as of this encounter
--- OUTSIDE RECORDS SUMMARY | 2024-07-21 10:16 | XMS_ITS | Encounter Summary ---
Author Organization [facility] Address [address] [place] [address] Phone Care Team Providers Care Research Interviewer Name Role Phone Ran Thacker MD Primary Care Provider [phone] Milena Chakraborty Unavailable Unavailab Korey Mccloud MD Unavailable [phone] Fernando Camarillo MD Unavailable Reason for Visit * Reason Comments Medication Refill Encounter Details Date Type Department Care Team (Late st Contact Info) Description 04/23/2023 Refill [facility] Medical Group - Family Medicine [facility] #2 [place] [address] Ran Thacker MD #[address] [address] Medication Refill Social History Tobacco Use Types Packs/Day Years Used Date Smoking Tobacco: Never Smokeless Tobacco: Never Alcohol Use Standard Drinks/Week Comments Never 0 (1 standard drink = 0.6 oz pur e alcohol) [facility] Utilities Answer Date Recorded In the past [...] often do you attend chur ch or anabaptist services? Never 04/03/2023 Do you belong to any clubs o r organizations such as religion groups, unions, fraternal or athletic groups, or [...] Total Score - Questions 1-9 0 03/18 [facility] of Occupat ional Health - [...] place to sleep or slept in a long-term (including now)? No 04/03/2023 Sex and Gender Information Value Date Recorded Sex Assigned at Not on file Legal Sex Male 10:13 AM CDT Gender Identity Not on file Sexual Orientation Not on file documented as of this encounter Miscellaneous Notes * Telephone Encounter - Maite White RMA - 04/24/2023 12:47 PM CHARGING OPERATOR Pt declined, states is fine GING OPERATOR * Telephone Encounter - Nakia Davis [...] Provider Dept 07/11/23 Appointment Ran Thacker MD [facility] Showing future appointments within next 90 days and meeting all other requirements GING OPERATOR * Telephone Encounter - Ran Thacker MD - 04/23/2023 12:04 PM CHARGING OPERATOR Schedule him for telephone visit with me for Urgent Care follow-up this week. Thanks! GING OPERATOR documented in this encounter Plan of Treatment Upcoming Encounters Date Type Department Care Team (Late st Contact Info) Description 07/23/2024 2:45 PM CDT Physical Therapy [facility] at [facility] 200 [facility], [address] [address] William Harrison MD [address] [address] Evie Arechiga, PT [place] Discharge Disposition: Discharged to home or Selfcare 09/03/2024 8:30 AM CDT Lab [facility] [address] [place] [address] Donna Michel August, PAC [address] [place] [address] Discharge Disposition: Discharged to home or Selfcare 09/03/2024 9:40 AM CDT Office Visit [facility] Oncology Services [address] [place] [address] Donna Michel August, PAC [address] [place] [address] Renan Hernandez MD [address] [place] [address] Discharge Disposition: Discharged to home or Selfcare 09/03/2024 10:30 AM CDT Clinical Support [facility] [address] [place] [address] Donna Michel, PAC [address] [place] [address] Discharge Disposition: Discharged to home or Selfcare 09/14/2024 10:45 AM CDT Office Visit [facility] Medical Group - Family [facility] #2 [place] [address] Ran Thacker MD #[address] [address] documented as of this encounter Visit Diagnoses Not on filedocumented in this encounter Additional Health Concerns Assessment Noted Time PHQ-9 Depression Total Score: 0 04/03/19 9:52 AM CHARGING OPERATOR documented as of this encounter Care Teams Research Interviewer Relationship Specialty Start Date End Date Ran Thacker MD #[address] [address] PCP - General Family Medicine 11/30/22 Milena Chakraborty, [facility] Chief Controller Tower Sea Shell Gatherer 12/27/22 06/24/23 Korey Matute MD #2 [place] [address] Consulting Physician Neurology 02/01/23 Fernando Camarillo MD #[address] [address] Consulting Physician Colon and Rectal Surgery 01/31/24 documented as of this encounter
--- OUTSIDE RECORDS SUMMARY | 2024-07-21 10:16 | XMS_ITS | Encounter Summary ---
Author Organization [facility] Address [address] [address] Phone Care Team Providers Care Pega Developer Name Role Phone Ran Thacker MD Primary Care Provider [phone] Milena Chakraborty Unavailable Unavailab Milena Pollard Unavailable Unavailab Korey Mccloud MD Unavailable [phone] Fernando Camarillo MD Unavailable Reason for Visit * Reason Comments Medication Refill Encounter Details Date Type Department Care Team (Late st Contact Info) Description 03/25/2023 [facility]ill [facility] #2 [place] [address] Ran Thacker MD #[address] [address] Medication Refill Social History Tobacco Use Types [...] 0 Signed by: Ran Thacker MD [facility] MEJIA TER GEOLOGICAL documented in this encounter Plan of Treatment Upcoming Encounters Date Type Department Care Team (Late st Contact Info) Description 07/23/2024 2:45 PM CDT Physical Therapy [facility] at [facility] [address] [phone] William Harrison MD [address] [address] Evie Arechiga, PT [place] Discharge Disposition: Discharged to home or Selfcare 09/03/2024 8:30 AM CDT Lab [facility] Oncology Services 0 [place] [address] Donna Michel August, PAC 2199 [place] [address] Discharge Disposition: Discharged to home or Selfcare 09/03/2024 9:40 AM CDT Office Visit [facility] Oncology Services 2200 [place] [address] Donna Michel August, PAC [address] [place] [address] Renan Hernandez MD 2200 [place] [address] Discharge Disposition: Discharged to home or Selfcare 09/03/2024 10:30 AM CDT Clinical Support [facility] Oncology Services 2200 [place] [address] Michel Donna Meghna, PAC [address] [place] [address] Discharge Disposition: Discharged to home or Selfcare 09/14/2024 10:45 AM CDT [facility] #2 [place] [address] Ran Thacker MD #2 [facility] 205 [place] [address] documented as of this encounter Visit Diagnoses Not on filedocumented in this encounter Additional Health Concerns Infection Onset Date Last Indicated Resolved Time COVID - 19 03/28/2023 03/28/2023 04/07/2023 12:1 6 AM DRAFTER GEOLOGICAL documented as of this encounter Care Teams Pega Developer Relationship Specialty Start Date End Date Ran Thacker MD #[address] [address] PCP - General Family Medicine 11/30/22 Milena Chakraborty LSW [place] City Director 12/27/22 04/03/23 Milena Chakraborty LSW [place] Syrup Blender City Director 12/27/22 06/24/23 Korey Matute MD #2 [place] [address] Consulting Physician Neurology 02/01/23 Fernando Camarillo MD #2 [facility] [address] [place] [address] Consulting Physician Colon and Rectal Surgery 01/31/24 documented as of this encounter
--- OUTSIDE RECORDS SUMMARY | 2024-07-21 10:16 | XMS_ITS | Encounter Summary ---
Author Organization [facility] Address [address] [place] [address] Phone Care Team Providers Care Admin Asst Name Role Phone Ran Thacker MD Primary Care Provider [phone] Korey Matute MD Unavailable [phone] Fernando Camarillo MD Unavailable Reason for Visit * Reason Comments Medication Refill Encounter Details Date Type Department Care Team (Late st Contact Info) Description 08/06/2023 Refill [facility] - Family Medicine [facility] #2 [place] [address] Ran Thacker MD #[address] [address] Medication Refill Social History Tobacco Use Types Packs/Day Years Used Date Smoking Tobacco: Former Cigarettes Smokeless Tobacco: Never Alcohol Use Standard Drinks/Week Comments Not Currently 0 (1 standard drink = 0.6 oz pur e alcohol) [facility] Utilities Answer Date Recorded In the past 12 months has [employer], gas, oil, or water [employer] threatened to shut off services in your [...] Total Score - Questions 1-9 0 03/18 [facility] [employer] of Occupat ional Health - Occupational Stress [...] 2:45 PM CDT Physical Therapy [facility] Rehab at [facility] 200 [facility] H1 [place] [address] William Harrison MD 7698 [facility] 303 [place] [address] Evie Arechiga, PT [place] Discharge Disposition: Discharged to home or Selfcare 09/03/2024 8:30 AM CDT Lab [facility] Oncology Services 2[address] [place] [address] Donna Michel August, PAC [address] [place] [address] Discharge Disposition: Discharged to home or Selfcare 09/03/2024 9:40 AM CDT Office Visit [facility] Oncology Services [address] [place] [address] Donna Michel August, PAC [address] [place] [address] Renan Hernandez MD 2199 [place] [address] Discharge Disposition: Discharged to home or Selfcare 09/03/2024 10:30 AM CDT Clinical Support [facility] Oncology Services [address] [place] [address] Donna Michel August, PAC [address] [place] [address] Discharge Disposition: Discharged to home or Selfcare 09/14/2024 10:45 AM CDT [facility] Family [facility] #2 [place] [address] Ran Thacker MD #[address] [address] documented as of this encounter Visit Diagnoses Not on filedocumented in this encounter Additional Health Concerns Assessment Noted Time PHQ-9 Depression Total Score: 0 04/03/19 9:52 AM GROUP MARKETING VP documented as of this encounter Care Teams Admin Asst Relationship Specialty Start Date End Date Ran Thacker MD #[address] [address] PCP - General Family Medicine 11/30/22 Korey Matute MD #2 [place] [address] Consulting Physician Neurology 02/01/23 Fernando Camarillo MD #[address] [address] Consulting Physician Colon and Rectal Surgery 01/31/24 documented as of this encounter
--- OUTSIDE RECORDS SUMMARY | 2024-07-21 10:16 | XMS_ITS | Encounter Summary ---
Author Organization [facility] Address [address] [place] [address] Phone Care Team Providers Care Coordinate Measuring Equipment Operator Name Role Phone Ran Thacker MD Primary Care Provider [phone] Milena Chakraborty Unavailable Unavailab Milena Pollard Unavailable Unavailab Korey Mccloud MD Unavailable [phone] Fernando Camarillo MD Unavailable Reason for Visit * Reason Comments Medication Refill Encounter Details Date Type Department Care Team (Late st Contact Info) Description 02/21/2023 Refill [facility] - Family Medicine [facility] #2 [place] [address] Ran Thacker MD #[address] [address] Medication Refill Social History Tobacco Use Types [...] Coronavirus/COVID-19? No / Unsure 01/25/2023 9:16 AM WHITE LEAD FILTERER documented as of this encounter Miscellaneous Notes [...] 90 days and meeting all other requirements E LEAD FILTERER documented in this encounter Plan of Treatment Upcoming Encounters Date Type Department Care Team (Late st Contact Info) Description 07/23/2024 2:45 PM CDT Physical Therapy [facility] Rehab at [facility] [address] [place] [address] [place] [address] William Harrison MD [address] [address] Evie Arechiga, PT [place] Discharge Disposition: Discharged to home or Selfcare 09/03/2024 8:30 AM CDT [facility] 2[address] [place] [address] MichelDonna August, PAC 2[address] [place] [address] Discharge Disposition: Discharged to home or Selfcare 09/03/2024 9:40 AM CDT Office Visit [facility] Oncology Services [address] [place] [address] MichelDonna August, PAC [address] [place] [address] Renan Hernandez MD 2199 [place] [address] Discharge Disposition: Discharged to home or Selfcare 09/03/2024 10:30 AM CDT Clinical Support [facility] Oncology Services [address] [place] [address] AustinDonna Meghna, PAC [address] [place] [address] Discharge Disposition: Discharged to home or Selfcare 09/14/2024 10:45 AM CDT Office Visit [facility] - Family Medicine [facility] #2 [place] [address] Ran Thacker MD #[address] [address] documented as of this encounter Visit Diagnoses Not on filedocumented in this encounter Additional Health Concerns Infection Onset Date Last Indicated Resolved Time COVID - 19 03/28/2023 03/28/2023 04/07/2023 12:1 6 AM WHITE LEAD FILTERER documented as of this encounter Care Teams Coordinate Measuring Equipment Operator Relationship Specialty Start Date End Date Ran Thacker MD #[address] [address] PCP - General Family Medicine 11/30/22 Milena Chakraborty LSW [place] Electrical Journeyman 12/27/22 04/03/23 Milena Chakraborty LSW [place] Software Implementation Specialist Electrical Journeyman 12/27/22 06/24/23 Korey Matute MD #2 [place] [address] Consulting Physician Neurology 02/01/23 Fernando Camarillo MD #[address] [address] Consulting Physician Colon and Rectal Surgery 01/31/24 documented as of this encounter
--- OUTSIDE RECORDS SUMMARY | 2024-07-21 10:16 | XMS_ITS | Encounter Summary ---
Author Organization [facility] Address [address] [place] [address] Phone Care Team Providers Care Email Manager Name Role Phone Ran Thacker MD Primary Care Provider [phone] Korey Matute MD Unavailable [phone] Fernando Camarillo MD Unavailable Reason for Referral * Medication Prior Authorization - Denied Specialty Diagnoses / Procedures Referred By Contmike t Referred To Contact Ran Thacker MD #[address] [address] Phone: tel: fax: Referral ID Status Reason Start Date Expiration Date Visits Re quested Visits Authorized [id number] Denied 1 1 Reason for Visit * Reason Onset Date Comments Medication Management 01/10/2024 Encounter Details Date Type Department Care Team (Late st Contact Info) Description 01/10/2024 [facility] [address] [place] [address] Ran Thacker MD #[address] [address] Medication Management Social History Tobacco Use Types Packs/Day Years Used Date Smoking Tobacco: Former Cigarettes Smokeless Tobacco: Never Alcohol Use Standard Drinks/Week Comments Not Currently 0 (1 standard drink = 0.6 oz pur e alcohol) [facility] Utilities Answer Date Recorded In [...] often do you attend chur ch or yarsani services? Patient declined 01/08/2024 Do you belong to any clubs o r organizations such as samaritan groups, unions, fraternal or athletic groups, or [...] Total Score - Questions 1-9 0 09/16 [facility] [place] of Occupat ional Health - Occupational Stress [...] in a snf (including now)? No 04/03/2023 Housing Stability Vital Sign Answer Mookie e Recorded In the last 12 months, was t here a time when you were not able to pay the mortgage or rent on time? No 01/08/2024 In the past 12 months, how m any times have you moved where you were living? 0 01/08/2024 At any time in the past 12 m [facility], were you homeless or living in a snf (including now)? No 01/08/2024 Sex and Gender [...] Description 07/23/2024 2:45 PM CDT Physical Therapy [facility] at [facility] [address] [address] William Harrison MD [address] [address] Evie Arechiga, PT [place] Discharge Disposition: Discharged to home or Selfcare 09/03/2024 8:30 AM CDT [facility] 2[address] [place] [address] Donna Michel August, PAC [address] [place] [address] Discharge Disposition: Discharged to home or Selfcare 09/03/2024 9:40 AM CDT Office Visit [facility] Oncology Services [address] [place] [address] Donna Michel August, PAC [address] [place] [address] Renan Hernandez MD 0 [place] [address] Discharge Disposition: Discharged to home or Selfcare 09/03/2024 10:30 AM CDT Clinical Support [facility] Oncology Services [address] [place] [address] Donna Michel, [facility] 2[address] [place] [address] Discharge Disposition: Discharged to home or Selfcare 09/14/2024 10:45 AM CDT Office Visit [facility] - Family [facility] #2 [place] [address] Ran Thacker MD #2 [facility] [address] [place] [address] documented as of this encounter Visit Diagnoses Not on filedocumented in this encounter Additional Health Concerns Assessment Noted Time PHQ-9 Depression Total Score: 0 10/10/19 24 1:23 PM CDT documented as of this encounter Care Teams Email Manager Relationship Specialty Start Date End Date Ran Thacker MD #2 [facility] [address] [place] [address] PCP - General Family Medicine 11/30/22 Korey Matute MD #2 [place] [address] Consulting Physician Neurology 02/01/23 Fernando Camarillo MD #2 [facility] [address] [place] [address] Consulting Physician Colon and Rectal Surgery 01/31/24 documented as of this encounter
[2024-07-21] MEDS: DOXYCYCLINE HYCLATE 100 MG TABLET PO (10:27)
[2024-07-21] MEDS: cefTRIAXone 1 GM VIAL IM (10:28)
[2024-07-21 10:29] VITALS: BP 150/98; PULSE 81; RESP 17; O2SAT 96
[2024-07-21] MEDS: LIDOCAINE 1% LOCAL INJ 10 ML VIAL (10:37)
[2024-07-21 11:45] LABS: Chlamydia trachomatis NOT DETECTED (NOT DETECTE); Neisseria gonorrhoeae PCR NOT DETECTED (NOT DETECTE)
[2024-07-21 11:49] VITALS: BP 137/97; PULSE 73; RESP 15; O2SAT 97
== END 2024-07-21 12:20 | disposition home or self-care (01) ==
PROVIDERS: Emergency Provider Emergency Medicine; PCP Family Medicine
DX: F41.9 Anxiety disorder, unspecified (principal); Z11.3 Encounter for screening for infections with a predominantly sexual mode of transmission; Z20.2 Contact with and (suspected) exposure to infections with a predominantly sexual mode of transmission; F17.210 Nicotine dependence, cigarettes, uncomplicated; Z86.73 Personal history of transient ischemic attack (TIA), and cerebral infarction without residual deficits
CPT/HCPCS: 87491; 87591; 96372; 99283; A9270; J0696; J2003

== ENCOUNTER 2024-11-03 20:05 | Emergency (ER) | payer OTHER, SELFPAY ==
--- OUTSIDE RECORDS SUMMARY | 2024-11-03 20:07 | XMS_ITS | Encounter Summary ---
Author Organization [facility] Address [address] [place] [address] Phone Care Team Providers Care Bottle Dealer Name Role Phone Ran Thacker MD Primary Care Provider [phone] Korey Matute MD Unavailable [phone] Fernando Camarillo MD Unavailable Reason for Visit * Reason Comments Medication Refill Encounter Details Date Type Department Care Team (Late st Contact Info) Description 11/11/2023 Refill [facility] - Family Medicine [facility] #2 [place] [address] Ran Thacker MD #[address] [id number] Medication Refill Social History Tobacco Use Types Packs/Day Years Used Date Smoking Tobacco: Former Cigarettes Smokeless Tobacco: Never Alcohol Use Standard Drinks/Week Comments Not Currently 0 (1 standard drink = 0.6 oz pur e alcohol) [facility] Utilities Answer Date Recorded In the past 12 months has [employer], gas, oil, or water company threatened to shut off services in your home? No 04/03/2023 Social Connection and Isolation Panel Answer Date Recorded In a typical week, [...] any clubs o r organizations such as jew groups, unions, fraternal or athletic groups, or [...] Total Score - Questions 1-9 0 09/16 [facility] of Occupat ional Health [...] place to sleep or slept in a jail (including now)? No 04/03/2023 Sex and Gender [...] Care Team (Late st Contact Info) Description 01/19/2025 9:30 AM CUT OFF SAW GRADER Office [facility] - [facility] Medicine - [place] #[address] [place] [address] Ran Thacker MD #[address] [address] 03/22/2025 9:00 AM CUT OFF SAW GRADER Lab [facility] [address] [place] [address] Renan Hernandez MD 0 [place] [address] Discharge Disposition: Discharged to home or Selfcare 03/22/2025 9:40 AM CUT OFF SAW GRADER Office Visit [facility] Oncology Services [address] [place] [address] Renan Hernandez MD [address] [place] [address] Discharge Disposition: Discharged to home or Selfcare documented as of this encounter Visit Diagnoses Not on filedocumented in this encounter Additional Health Concerns Assessment Noted Time PHQ-9 Depression Total Score: 0 10/10/19 24 1:23 PM CDT documented as of this encounter Care Teams Bottle Dealer Relationship Specialty Start Date End Date Ran Thacker MD #2 [facility] 205 [place] [address] PCP - General Family Medicine 11/30/22 Korey Matute MD #2 [place] [address] Consulting Physician Neurology 02/01/23 Fernando Camarillo MD #2 [facility] [address] [place] [address] Consulting Physician Colon and Rectal Surgery 01/31/24 documented as of this encounter
--- OUTSIDE RECORDS SUMMARY | 2024-11-03 20:07 | XMS_ITS | Encounter Summary ---
Author Organization [facility] Address [address] [place] [address] Phone Care Team Providers Care Yardage Caller Name Role Phone Ran Thacker MD Primary Care Provider [phone] Korey Matute MD Unavailable [phone] Fernando Camarillo MD Unavailable Reason for Visit * Reason Comments Medication Refill Encounter Details Date Type Department Care Team (Late st Contact Info) Description 11/11/2023 Refill [facility] - Family Medicine [facility] #2 [place] [address] Ran Thacker MD #[address] [id number] Medication Refill Social History Tobacco Use Types Packs/Day Years Used Date Smoking Tobacco: Former Cigarettes Smokeless Tobacco: Never Alcohol Use Standard Drinks/Week Comments Not Currently 0 (1 standard drink = 0.6 oz pur e alcohol) [facility] Utilities Answer Date Recorded In the past 12 months has [employer], gas, oil, or water company threatened to [...] often do you attend chur ch or restorationist services? Never 04/03/2023 Do you belong to any clubs o r organizations such as methodist groups, unions, fraternal or athletic groups, or [...] Total Score - Questions 1-9 0 09/16 [facility] of Occupat ional Health - Occupational [...] place to sleep or slept in a retirement (including now)? No 04/03/2023 Sex and Gender [...] st Contact Info) Description 01/19/2025 9:30 AM EHS ENGINEER [facility] - [place] #[address] [place] [address] Ran Thacker MD #[address] [address] 03/22/2025 9:00 AM EHS ENGINEER [facility] [address] [place] [address] Renan Hernandez MD 0 [place] [address] Discharge Disposition: Discharged to home or Selfcare 03/22/2025 9:40 AM EHS ENGINEER Office Visit [facility] Oncology Services [address] [place] [address] Renan Hernandez MD [address] [place] [address] Discharge Disposition: Discharged to home or Selfcare documented as of this encounter Visit Diagnoses Not on filedocumented in this encounter Additional Health Concerns Assessment Noted Time PHQ-9 Depression Total Score: 0 10/10/19 24 1:23 PM CDT documented as of this encounter Care Teams Yardage Caller Relationship Specialty Start Date End Date Ran Thacker MD #2 [facility] 205 [place] [address] PCP - General Family Medicine 11/30/22 Korey Matute MD #2 [place] [address] Consulting Physician Neurology 02/01/23 Fernando Camarillo MD #2 [facility] 305 [place] [address] Consulting Physician Colon and Rectal Surgery 01/31/24 documented as of this encounter
--- OUTSIDE RECORDS SUMMARY | 2024-11-03 20:08 | XMS_ITS | Encounter Summary ---
Author Organization [facility] Address [address] [place] [address] Phone Care Team Providers Care Tire Changer Name Role Phone Ran Thacker MD Primary Care Provider [phone] Korey Matute MD Unavailable [phone] Fernando Camarillo MD Unavailable Reason for Visit * Reason Comments Medication Refill Encounter Details Date Type Department Care Team (Late st Contact Info) Description 12/18/2023 Refill [facility] Group - Family Medicine [facility] #2 [place] [address] Ran Thacker MD #[address] [id number] Medication Refill Social History Tobacco Use Types Packs/Day Years Used Date Smoking Tobacco: Former Cigarettes Smokeless Tobacco: Never Alcohol Use Standard Drinks/Week Comments Not Currently 0 (1 standard drink = 0.6 oz pur e alcohol) [facility] Utilities Answer Date Recorded In the past 12 months has [employer], gas, oil, or water company threatened to [...] often do you attend chur ch or presybeterian services? Never 04/03/2023 Do you belong to any clubs o r organizations such as gnosticism groups, unions, fraternal or athletic groups, or [...] Total Score - Questions 1-9 0 09/16 [facility] of Occupat ional Health - Occupational [...] place to sleep or slept in a intermediate (including now)? No 04/03/2023 Sex and Gender [...] Pending Prescriptions Disp Refills ergocalciferol (VITAMIN D) 22299 UNIT Capsule [Pharmacy Med Name: VITAMIN D2 [...] st Contact Info) Description 01/19/2025 9:30 AM PIPE BUFFER [facility] #2 [place] [address] Ran Thacker MD #[address] [address] 03/22/2025 9:00 AM PIPE BUFFER Lab [facility] 0 [place] [address] Renan Hernandez MD [address] [place] [address] Discharge Disposition: Discharged to home or Selfcare 03/22/2025 9:40 AM PIPE BUFFER Office Visit [facility] On[facility] Services [address] [place] [address] Renan Hernandez MD 0 [place] [address] Discharge Disposition: Discharged to home or Selfcare documented as of this encounter Results * VITAMIN D, 25 HYDROXY TOTAL (01/09/2024 10:20 AM CDT) VITAMIN D, 25 HYDROX 33.4 ng/mL 01/09/2024 11:30 AM CDT [facility] Blood Venipuncture / Unknown 01/09/2024 10:20 AM CDT 01/09/2024 10:45 AM CDT Narrative [facility] - 01/09/2024 11:30 AM CDT Published reference ranges for Vitamin D vary depending on time and place and method of testing, and on patient's age, sex, ethnicity and levels of other measured analytes such as parathormone, calcium and phosphorus. The result should be evaluated in conjunction with clinical findings and suspicions. [place] of Medicine and Endocrine Clinical Practice Guidelines: Status Vitamin D levels (ng/mL) Deficient <=20 At risk of inadequacy 21-29 Sufficient 30-100 Centers of Disease Control and Prevention Guidelines: Status Vitamin D levels (ng/mL) Deficient <13 At risk of inadequacy 13-19 Sufficient 20-50 Possibly harmful >50 References: [place] of Medicine, 2010 Dietary reference intakes for calcium and vitamin D. [place]: The National Academies Press. Vicente M, Evelia N, Aurelio-Ki BURNS, et al., Evaluation, treatment, and prevention of Vitamin D deficiency: an Endocrinology Clinical Practice Guideline. JCEM 2011 96: 7 0824-1129. Eliseo A, Barry C, Arnulfo D, et al., Vitamin D Status: [place], 9998-7288, [facility] data brief, no. 59, [place]: National Center for Health Statistics. 2011. Ran Thacker MD CHEMISTRY ORDERABLES Estella salazar Result [facility] #1 [place] [address] documented in this encounter Visit Diagnoses Diagnosis Vitamin D deficiency Unspecified vitamin D deficiency documented in this encounter Additional Health Concerns Assessment Noted Time PHQ-9 Depression Total Score: 0 10/10/19 1:23 PM CDT documented as of this encounter Care Teams Tire Changer Relationship Specialty Start Date End Date Ran Thacker MD #[address] [address] PCP - General Family Medicine 11/30/22 Korey Matute MD #2 [place] [address] Consulting Physician Neurology 02/01/23 Fernando Camarillo MD #[address] [address] Consulting Physician Colon and Rectal Surgery 01/31/24 documented as of this encounter
--- OUTSIDE RECORDS SUMMARY | 2024-11-03 20:09 | XMS_ITS | Encounter Summary ---
Author Organization [facility] Address [address] [place] [address] Phone Care Team Providers Care Relay Engineer Name Role Phone Ran Thacker MD Primary Care Provider [phone] Korey Matute MD Unavailable [phone] Fernando Camarillo MD Unavailable Reason for Visit * Reason Onset Date Comments Medication Management 01/10/2024 Encounter Details Date Type Department Care Team (Late st Contact Info) Description 01/10/2024 Telephone [facility] [address] [place] [address] Ran Thacker MD #[address] [address] Medication Management Social History Tobacco Use Types Packs/Day Years Used Date Smoking Tobacco: Former Cigarettes Smokeless Tobacco: Never Alcohol Use Standard Drinks/Week Comments Not Currently 0 (1 standard drink = 0.6 oz pur e alcohol) [facility] Utilities Answer Date Recorded In the past 12 months has [employer] electric, gas, oil, or water company threatened to shut off services in your home? No 01/08/2024 Social Connection and Isolation Panel Answer Date Recorded In a typical week, how many times do you talk on the phone with family, friends, or neighbors? More than three times a week 01/08/2024 How often do you get togethe r with friends or relatives? Once a week 01/08/2024 How often do you attend chur ch or methodist services? Patient declined 01/08/2024 Do you belong to any clubs o r organizations such as protestant groups, unions, fraternal or athletic groups, or [...] Total Score - Questions 1-9 0 09/16 [facility] of Occupat ional Health - Occupational Stress [...] place to sleep or slept in a nursing home (including now)? No 04/03/2023 Housing Stability Vital Sign Answer Mookie e Recorded In the last 12 months, was t here a time when you were not able to pay the mortgage or rent on time? No 01/08/2024 In the past 12 months, how m any times have you moved where you were living? 0 01/08/2024 At any time in the past 12 m [facility], were you homeless or living in a nursing home (including now)? No 01/08/2024 Sex and Gender [...] RN - 01/10/2024 10:28 AM CDT Situation: EVANGELISTA Rawls verified calling regarding medication refills Background: Mitch Frias 1985 contact phone # [phone] Callers concern: Medication refills Action: Name of Medication: Baclofen Dose: 10mg Frequency: three times daily Route: Oral Directions: N/A Ordering Provider: Dr. Thacker Pharmacy: [place], [place] Name of Medication: Oxycodone-Acetaminophen Dose: 10-325 Frequency: Twice daily as needed Route: Oral Directions: Take twice daily as needed Ordering Provider: Dr. Thacker Pharmacy: [facility] in [place], [place] Recommendation: Route high priority to surescripts pool. documented in this encounter Plan of Treatment Upcoming Encounters Date Type Department Care Team (Late st Contact Info) Description 01/19/2025 9:30 AM EPOXY COATINGS INSTALLER Office Visit [facility] - Family [facility] #[address] [place] [address] Ran Thacker MD #[address] [address] 03/22/2025 9:00 AM EPOXY COATINGS INSTALLER Lab [facility] Oncology Services [address] [place] [address] Renan Hernandez MD [address] [place] [address] Discharge Disposition: Discharged to home or Selfcare 03/22/2025 9:40 AM EPOXY COATINGS INSTALLER Office Visit [facility] [address] [place] [address] Renan Hernandez MD [address] [place] [address] Discharge Disposition: Discharged to home or Selfcare documented as of this encounter Visit Diagnoses Diagnosis History of back surgery Other postprocedural status Chronic bilateral thoracic back pain documented in this encounter Additional Health Concerns Assessment Noted Time PHQ-9 Depression Total Score: 0 10/10/19 24 1:23 PM CDT documented as of this encounter Care Teams Relay Engineer Relationship Specialty Start Date End Date Ran Thacker MD #[address] [address] PCP - General Family Medicine 11/30/22 Korey Matute MD #2 [place] [address] Consulting Physician Neurology 02/01/23 Fernando Camarillo MD #[address] [address] Consulting Physician Colon and Rectal Surgery 01/31/24 documented as of this encounter
--- OUTSIDE RECORDS SUMMARY | 2024-11-03 20:09 | XMS_ITS | Encounter Summary ---
Author Organization [facility] Address [address] [place] [address] Phone Care Team Providers Care Water Treatment Plant Engineer Name Role Phone Ran Thacker MD Primary Care Provider [phone] Milena Chakraborty Unavailable Unavailab Korey Mccloud MD Unavailable [phone] Fernando Camarillo MD Unavailable Reason for Visit * Reason Comments Medication Refill Encounter Details Date Type Department Care Team (Late st Contact Info) Description 05/23/2023 Refill [facility] - Family Medicine [facility] #2 [place] [address] Ran Thacker MD #[address] [address] Medication Refill Social History Tobacco Use Types Packs/Day Years Used Date Smoking Tobacco: Never Smokeless Tobacco: Never Alcohol Use Standard Drinks/Week Comments Never 0 (1 standard drink = 0.6 oz pur e alcohol) [facility] Utilities Answer Date Recorded In the [...] often do you attend chur ch or church services? Never 04/03/2023 Do you belong to any clubs o r organizations such as sikh groups, unions, fraternal or athletic groups, or [...] Total Score - Questions 1-9 0 03/18 [facility] - Occupational Stress Questionnaire Answer Date Recorded [...] Jaycee Soto RN - 05/23/2023 8:42 AM ASSISTANT CLINICAL DIRECTOR Medication failed the protocol, provider to [...] 90 days and meeting all other requirements STANT CLINICAL DIRECTOR documented in this encounter Plan of Treatment Upcoming Encounters Date Type Department Care Team (Late st Contact Info) Description 01/19/2025 9:30 AM ASSISTANT CLINICAL DIRECTOR Office Visit [facility] - Family [facility] #2 [place] [address] Ran Thacker MD #[address] [address] 03/22/2025 9:00 AM ASSISTANT CLINICAL DIRECTOR Lab [facility] Oncology Services [address] [place] [address] Renan Hernandez MD [address] [place] [address] Discharge Disposition: Discharged to home or Selfcare 03/22/2025 9:40 AM ASSISTANT CLINICAL DIRECTOR Office Visit [facility] [address] [place] [address] Renan Hernandez MD [address] [place] [address] Discharge Disposition: Discharged to home or Selfcare documented as of this encounter Visit Diagnoses Not on filedocumented in this encounter Additional Health Concerns Assessment Noted Time PHQ-9 Depression Total Score: 0 04/03/19 9:52 AM ASSISTANT CLINICAL DIRECTOR documented as of this encounter Care Teams Water Treatment Plant Engineer Relationship Specialty Start Date End Date Ran Thacker MD #[address] [address] PCP - General Family Medicine 11/30/22 Milena Chakraborty LSW [place] Wind Turbine Mechanical Engineer Assistant Program Director 12/27/22 06/24/23 Korey Matute MD #2 [place] [address] Consulting Physician Neurology 02/01/23 Fernando Camarillo MD #2 [place] [address] Consulting Physician Colon and Rectal Surgery 01/31/24 documented as of this encounter
--- OUTSIDE RECORDS SUMMARY | 2024-11-03 20:09 | XMS_ITS | Encounter Summary ---
Author Organization [facility] Address [address] [place] [address] Phone Care Team Providers Care Occupational Therapist Per Diem Name Role Phone aRn Thacker MD Primary Care Provider [phone] Korey Matute MD Unavailable [phone] Fernando Camarillo MD Unavailable Reason for Visit * Reason Onset Date Comments Medication Management 01/10/2024 Encounter Details Date Type Department Care Team (Late st Contact Info) Description 01/10/2024 Telephone [facility] [address] [place] [address] Ran Thacker MD #[address] [address] Medication Management Social History Tobacco Use Types Packs/Day Years Used Date Smoking Tobacco: Former Cigarettes Smokeless Tobacco: Never Alcohol Use Standard Drinks/Week Comments Not Currently 0 (1 standard drink = 0.6 oz pur e alcohol) [facility] Utilities Answer Date Recorded In the past 12 months has [employer] electric, gas, oil, or water company threatened [...] often do you attend chur ch or temple services? Patient declined 01/08/2024 Do you belong to any clubs o r organizations such as moravian groups, unions, fraternal or athletic groups, or [...] Total Score - Questions 1-9 0 09/16 [facility] of Occupat ional Health - Occupational Stress [...] place to sleep or slept in a alf (including now)? No 04/03/2023 Housing Stability Vital Sign Answer Mookie e Recorded In the last 12 months, was t here a time when you were not able to pay the mortgage or rent on time? No 01/08/2024 In the past 12 months, how m any times have you moved where you were living? 0 01/08/2024 At any time in the past [address] [facility], were you homeless or living in a alf (including now)? No 01/08/2024 Sex and Gender [...] st Contact Info) Description 01/19/2025 9:30 AM OPTICAL ENGINEER Office Visit [facility] Medical Group - Family [facility] #[address] [place] [address] Ran Thacker MD #[address] [address] 03/22/2025 9:00 AM OPTICAL ENGINEER Lab [facility] Oncology Services [address] [place] [address] Renan Hernandez MD [address] [place] [address] Discharge Disposition: Discharged to home or Selfcare 03/22/2025 9:40 AM OPTICAL ENGINEER Office Visit [facility] Oncology Services [address] [place] [address] Renan Hernandez MD [address] [place] [address] Discharge Disposition: Discharged to home or Selfcare documented as of this encounter Visit Diagnoses Not on filedocumented in this encounter Additional Health Concerns Assessment Noted Time PHQ-9 Depression Total Score: 0 10/10/19 24 1:23 PM CDT documented as of this encounter Care Teams Occupational Therapist Per Diem Relationship Specialty Start Date End Date Ran Thacker MD #[address] [address] PCP - General Family Medicine 11/30/22 Korey Matute MD #2 [place] [address] Consulting Physician Neurology 02/01/23 Fernando [facility]illo MD [facility] [address] [address] Consulting Physician Colon and Rectal Surgery 01/31/24 documented as of this encounter
--- OUTSIDE RECORDS SUMMARY | 2024-11-03 20:09 | XMS_ITS | Encounter Summary ---
Author Organization [facility] Address [address] [place] [address] Phone Care Team Providers Care Voice Over Announcer Name Role Phone Ran Thacker MD Primary Care Provider [phone] Milena Chakraborty Unavailable Unavailab Korey Mccloud MD Unavailable [phone] Fernando Camarillo MD Unavailable Reason for Visit * Reason Comments Medication Refill Encounter Details Date Type Department Care Team (Late st Contact Info) Description 04/23/2023 Refill [facility] - Family Medicine [facility] #[address] [place] [address] Ran Thacker MD #[address] [address] Medication Refill Social History Tobacco Use Types Packs/Day Years Used Date Smoking Tobacco: Never Smokeless Tobacco: Never Alcohol Use Standard Drinks/Week Comments Never 0 (1 standard drink = 0.6 oz pur e alcohol) [facility] Utilities Answer Date Recorded In [...] often do you attend chur ch or episcopalian services? Never 04/03/2023 Do you belong to any clubs o r organizations such as pentecostal groups, unions, fraternal or athletic groups, or [...] Total Score - Questions 1-9 0 03/18 [facility] - Occupational Stress Questionnaire Answer [...] Maite White RMA - 04/24/2023 12:47 PM MANUFACTURING QUALITY MANAGER Pt declined, states is fine FACTURING QUALITY MANAGER * Telephone Encounter - Nakia Davis RN [...] Provider Dept 07/11/23 Appointment Ran Thacker MD [facility] Showing future appointments within next 90 days and meeting all other requirements FACTURING QUALITY MANAGER * Telephone Encounter - Ran Thacker MD - 04/23/2023 12:04 PM MANUFACTURING QUALITY MANAGER Schedule him for telephone visit with me for Urgent Care follow-up this week. Thanks! FACTURING QUALITY MANAGER documented in this encounter Plan of Treatment Upcoming Encounters Date Type Department Care Team (Late st Contact Info) Description 01/19/2025 9:30 AM MANUFACTURING QUALITY MANAGER Office Visit [facility] Group - Family Medicine [facility] #[address] [place] [address] Ran Thacker MD #[address] [address] 03/22/2025 9:00 AM MANUFACTURING QUALITY MANAGER Lab [facility] Oncology Services [address] [place] [address] Renan Hernandez MD [address] [place] [address] Discharge Disposition: Discharged to home or Selfcare 03/22/2025 9:40 AM MANUFACTURING QUALITY MANAGER Office Visit [facility] Oncology Services [address] [place] [address] Renan Hernandez MD [address] [place] [address] Discharge Disposition: Discharged to home or Selfcare documented as of this encounter Visit Diagnoses Not on filedocumented in this encounter Additional Health Concerns Assessment Noted Time PHQ-9 Depression Total Score: 0 04/03/19 9:52 AM MANUFACTURING QUALITY MANAGER documented as of this encounter Care Teams Voice Over Announcer Relationship Specialty Start Date End Date Ran Thacker MD #2 [facility] [address] [place] [address] PCP - General Family Medicine 11/30/22 Milena Chakraborty LSW [place] Outreach Consultant Windlasser 12/27/22 06/24/23 Korey Matute MD #2 [place] [address] Consulting Physician Neurology 02/01/23 Fernando Camarillo MD #2 [facility] [address] [place] [address] Consulting Physician Colon and Rectal Surgery 01/31/24 documented as of this encounter
--- OUTSIDE RECORDS SUMMARY | 2024-11-03 20:10 | XMS_ITS | Encounter Summary ---
Author Organization [facility] Address [address] [place] [address] Phone Care Team Providers Care Physiological Chemist Name Role Phone Ran Thacker MD Primary Care Provider [phone] Korey Matute MD Unavailable [phone] Fernando Camarillo MD Unavailable Reason for Visit * Reason Comments Medication Refill Encounter Details Date Type Department Care Team (Late st Contact Info) Description 08/06/2023 Refill [facility] - Family Medicine [facility] #[address] [place] [address] Ran Thacker MD #[address] [address] Medication Refill Social History Tobacco Use Types Packs/Day Years Used Date Smoking Tobacco: Former Cigarettes Smokeless Tobacco: Never Alcohol Use Standard Drinks/Week Comments Not Currently 0 (1 standard drink = 0.6 oz pur e alcohol) [facility] Utilities Answer Date Recorded In the past 12 months has [employer], gas, oil, or water company threatened to [...] often do you attend chur ch or judaism services? Never 04/03/2023 Do you belong to [...] Total Score - Questions 1-9 0 03/18 [facility] Occupat ional Health - Occupational [...] [place] 10/10/23 Appointment Ran Thacker MD [facility] Showing future appointments within next 90 days and meeting all other requirements documented in this encounter Plan of Treatment Upcoming Encounters Date Type Department Care Team (Late st Contact Info) Description 01/19/2025 9:30 AM PIPE CHANGER Office Visit [facility] Medical Group - Family [facility] #[address] [place] [address] Ran Thacker MD #[address] [address] 03/22/2025 9:00 AM PIPE CHANGER Lab [facility] Oncology Services [address] [place] [address] Renan Hernandez MD [address] [place] [address] Discharge Disposition: Discharged to home or Selfcare 03/22/2025 9:40 AM PIPE CHANGER Office Visit [facility] Oncology Services [address] [place] [address] Renan Hernandez MD [address] [place] [address] Discharge Disposition: Discharged to home or Selfcare documented as of this encounter Visit Diagnoses Not on filedocumented in this encounter Additional Health Concerns Assessment Noted Time PHQ-9 Depression Total Score: 0 04/03/19 24 9:52 AM PIPE CHANGER documented as of this encounter Care Teams Physiological Chemist Relationship Specialty Start Date End Date Ran Thacker MD #[address] [address] PCP - General Family Medicine 11/30/22 Korey Matute MD #2 [place] [address] Consulting Physician Neurology 02/01/23 Fernando Camarillo MD #[address] [address] Consulting Physician Colon and Rectal Surgery 01/31/24 documented as of this encounter
--- OUTSIDE RECORDS SUMMARY | 2024-11-03 20:10 | XMS_ITS | Encounter Summary ---
Author Organization [facility] Address [address] [place] [address] Phone Care Team Providers Care Dance Coach Name Role Phone Ran Thacker MD Primary Care Provider [phone] Korey Matute MD Unavailable [phone] Fernando Camarillo MD Unavailable Reason for Visit * Reason Comments Medication Refill Encounter Details Date Type Department Care Team (Late st Contact Info) Description 06/28/2023 Refill [facility] - Family Medicine [facility] #2 [place] [address] Ran Thacker MD #[address] [id number] Medication Refill Social History Tobacco Use Types Packs/Day Years Used Date Smoking Tobacco: Some Days Cigarettes Smokeless Tobacco: Never Alcohol Use Standard Drinks/Week Comments Not Currently 0 (1 standard drink = 0.6 oz pur e alcohol) [facility] Utilities Answer Date Recorded In the past 12 months has [employer], gas, oil, or water company threatened to [...] you attend chur ch or voodoo services? Never 04/03/2023 Do you belong to any clubs o r organizations such as sikhism groups, unions, fraternal or athletic groups, or [...] Total Score - Questions 1-9 0 03/18 [facility] of Occupat ional Health - Occupational [...] st Contact Info) Description 01/19/2025 9:30 AM DISC PAD GRINDER Office Visit [facility] - Family [facility] #2 [place] [address] Ran Thacker MD #[address] [address] 03/22/2025 9:00 AM DISC PAD GRINDER Lab [facility] Oncology Services [address] [place] [address] Renan Hernandez MD [address] [place] [address] Discharge Disposition: Discharged to home or Selfcare 03/22/2025 9:40 AM DISC PAD GRINDER Office Visit [facility] Oncology Services [address] [place] [address] Renan Hernandez MD [address] [place] [address] Discharge Disposition: Discharged to home or Selfcare documented as of this encounter Visit Diagnoses Not on filedocumented in this encounter Additional Health Concerns Assessment Noted Time PHQ-9 Depression Total Score: 0 04/03/19 24 9:52 AM DISC PAD GRINDER documented as of this encounter Care Teams Dance Coach Relationship Specialty Start Date End Date Ran Thacker MD #[address] [address] PCP - General Family Medicine 11/30/22 Korey Matute MD #2 [place] [address] Consulting Physician Neurology 02/01/23 Fernando Camarillo MD #[address] [address] Consulting Physician Colon and Rectal Surgery 01/31/24 documented as of this encounter
--- OUTSIDE RECORDS SUMMARY | 2024-11-03 20:10 | XMS_ITS | Encounter Summary ---
Author Organization [facility] Address [address] [place] [address] Phone Care Team Providers Care Chopper Feeder Name Role Phone Ran Thacker MD Primary Care Provider [phone] Korey Matute MD Unavailable [phone] Fernando Camarillo MD Unavailable Reason for Visit * Reason Comments Medication Refill Encounter Details Date Type Department Care Team (Late st Contact Info) Description 07/29/2023 Refill [facility] - Family Medicine [facility] #[address] [place] [address] Ran Thacker MD #[address] [id number] Medication Refill Social History Tobacco Use Types Packs/Day Years Used Date Smoking Tobacco: Former Cigarettes Smokeless Tobacco: Never Alcohol Use Standard Drinks/Week Comments Not Currently 0 (1 standard drink = 0.6 oz pur e alcohol) [facility] Utilities Answer Date Recorded In the past 12 months has [employer], gas, oil, or water company threatened to [...] often do you attend chur ch or yazdanism services? Never 04/03/2023 Do you belong to any clubs o r organizations such as nondenominational groups, unions, fraternal or athletic groups, or [...] Total Score - Questions 1-9 0 03/18 [facility] of Occupat ional Health - Occupational [...] place to sleep or slept in a care home (including now)? No 04/03/2023 Sex and Gender [...] st Contact Info) Description 01/19/2025 9:30 AM QUALITY CONTROL SYSTEMS MANAGER Office Visit [facility] Medical Group - Family [facility] #2 [place] [address] Ran Thacker MD #[address] [address] 03/22/2025 9:00 AM QUALITY CONTROL SYSTEMS MANAGER Lab [facility] Oncology Services [address] [place] [address] Renan Hernandez MD [address] [place] [address] Discharge Disposition: Discharged to home or Selfcare 03/22/2025 9:40 AM QUALITY CONTROL SYSTEMS MANAGER Office Visit [facility] Oncology Services [address] [place] [address] Renan Hernandez MD [address] [place] [address] Discharge Disposition: Discharged to home or Selfcare documented as of this encounter Visit Diagnoses Not on filedocumented in this encounter Additional Health Concerns Assessment Noted Time PHQ-9 Depression Total Score: 0 04/03/19 24 9:52 AM QUALITY CONTROL SYSTEMS MANAGER documented as of this encounter Care Teams Chopper Feeder Relationship Specialty Start Date End Date Ran Thacker MD #[address] [address] PCP - General Family Medicine 11/30/22 Korey Matute MD #2 [place] [address] Consulting Physician Neurology 02/01/23 Fernando Camarillo MD #2 [place] [address] Consulting Physician Colon and Rectal Surgery 01/31/24 documented as of this encounter
--- OUTSIDE RECORDS SUMMARY | 2024-11-03 20:10 | XMS_ITS | Encounter Summary ---
Author Organization [facility] Address [address] [place] [address] Phone Care Team Providers Care Rag Cutting Machine Operator Name Role Phone Ran Thacker MD Primary Care Provider [phone] Milena Chakraborty Unavailable Unavailab Korey Mccloud MD Unavailable [phone] Fernando Camarillo MD Unavailable Reason for Visit * Reason Comments Medication Refill Encounter Details Date Type Department Care Team (Late st Contact Info) Description 04/25/2023 Refill [facility] - Family Medicine [facility] [address] [place] [address] Ran Thacker MD #[address] [address] Medication Refill Social History Tobacco Use Types Packs/Day Years Used Date Smoking Tobacco: Never Smokeless Tobacco: Never Alcohol Use Standard Drinks/Week Comments Never 0 (1 standard drink = 0.6 oz pur e alcohol) [facility] Utilities Answer Date Recorded In the [...] often do you attend chur ch or bahai services? Never 04/03/2023 Do you belong to any clubs o r organizations such as uatsdin groups, unions, fraternal or athletic groups, or [...] Total Score - Questions 1-9 0 03/18 [facility] - Occupational Stress Questionnaire Answer [...] CST Needs lab work prior to refill. ATION OPERATOR documented in this encounter Plan of Treatment Upcoming Encounters Date Type Department Care Team (Late st Contact Info) Description 01/19/2025 9:30 AM FLOTATION OPERATOR Office Visit [facility] #[address] [place] [address] Ran Thacker MD #[address] [address] 03/22/2025 9:00 AM FLOTATION OPERATOR Lab [facility] Oncology Services [address] [place] [address] Renan Hernandez MD [address] [place] [address] Discharge Disposition: Discharged to home or Selfcare 03/22/2025 9:40 AM FLOTATION OPERATOR Office Visit [facility] On[facility] Services [address] [place] [address] Renan Hernandez MD [address] [place] [address] Discharge Disposition: Discharged to home or Selfcare documented as of this encounter Visit Diagnoses Not on filedocumented in this encounter Additional Health Concerns Assessment Noted Time PHQ-9 Depression Total Score: 0 04/03/19 9:52 AM FLOTATION OPERATOR documented as of this encounter Care Teams Rag Cutting Machine Operator Relationship Specialty Start Date End Date Ran Thacker MD #2 [facility] [address] [place] [address] PCP - General Family Medicine 11/30/22 Milena Ch[facility]rab[facility] Security Developer Lime Mixer Tender 12/27/22 06/24/23 Korey Matute MD [address]2 [place] [address] Consulting Physician Neurology 02/01/23 Fernando Camarillo MD #2 [facility] [address] [place] [address] Consulting Physician Colon and Rectal Surgery 01/31/24 documented as of this encounter
--- OUTSIDE RECORDS SUMMARY | 2024-11-03 20:10 | XMS_ITS | Encounter Summary ---
Author Organization [facility] Address [address] [place] [address] Phone Care Team Providers Care Contact Printer Dry Film Name Role Phone Ran Thacker MD Primary Care Provider [phone] Milena Chakraborty Unavailable Unavailab Korey Mccloud MD Unavailable [phone] Fernando Camarillo MD Unavailable Reason for Visit * Reason Comments Medication Refill Encounter Details Date Type Department Care Team (Late st Contact Info) Description 04/26/2023 Refill [facility] - Family Medicine [facility] [address]2 [place] [address] Ran Thacker MD #[address] [address] Medication Refill Social History Tobacco Use Types Packs/Day Years Used Date Smoking Tobacco: Never Smokeless Tobacco: Never Alcohol Use Standard Drinks/Week Comments Never 0 (1 standard drink = 0.6 oz pur e alcohol) [facility] Utilities Answer Date Recorded In the past [...] any clubs o r organizations such as rastafari groups, unions, fraternal or athletic groups, or [...] Total Score - Questions 1-9 0 03/18 [facility] - Occupational Stress Questionnaire Answer Date [...] Dept 04/04/23 Office Visit Ran Thacker MD [facility] 12/27/22 Office Visit Ran Thacker MD [facility] Howie Showing recent visits within past 365 days and meeting all other requirements Future Appointments Date Type Provider Dept 07/11/23 Appointment Ran Thacker MD [facility] Showing future appointments within next 90 days and meeting all other requirements LITIES MAINTENANCE SUPERVISOR documented in this encounter Plan of Treatment Upcoming Encounters Date Type Department Care Team (Late st Contact Info) Description 01/19/2025 9:30 AM FACILITIES MAINTENANCE SUPERVISOR Office Visit [facility] - Family Medicine [facility] [address] [place] [address] Ran Thacker MD #[address] [address] 03/22/2025 9:00 AM FACILITIES MAINTENANCE SUPERVISOR Lab [facility] Oncology Services [address] [place] [address] Renan Hernandez MD [address] [place] [address] Discharge Disposition: Discharged to home or Selfcare 03/22/2025 9:40 AM FACILITIES MAINTENANCE SUPERVISOR Office Visit [facility] Oncology Services [address] [place] [address] Renan Hernandez MD [address] [place] [address] Discharge Disposition: Discharged to home or Selfcare documented as of this encounter Visit Diagnoses Not on filedocumented in this encounter Additional Health Concerns Assessment Noted Time PHQ-9 Depression Total Score: 0 04/03/19 9:52 AM FACILITIES MAINTENANCE SUPERVISOR documented as of this encounter Care Teams Contact Printer Dry Film Relationship Specialty Start Date End Date Ran Thacker MD #2 [facility] [address] [place] [address] PCP - General Family Medicine 11/30/22 Milena Chakraborty LSW [place] Audio Director Portable Power Tool Repairer 12/27/22 06/24/23 Korey Matute MD #2 [place] [phone] Consulting Physician Neurology 02/01/23 Fernando Camarillo MD #2 [facility] [address] [place] [address] Consulting Physician Colon and Rectal Surgery 01/31/24 documented as of this encounter
--- OUTSIDE RECORDS SUMMARY | 2024-11-03 20:10 | XMS_ITS | Clinical Summary ---
Author Organization [facility] [employer] Address [address] [facility] [place] [address] Care Team Providers Care Bag Sorter Name Role Phone Ran Thacker MD Primary Care Provider [phone] Source Comments [facility] [employer],non-owned Affiliates and Associated Physician Practices is amultiple site organization consisting of ambulatory clinics and hospital sitesin [place], [place], [place] and [place]. This disclosure is being madepursuant to the Care Everywhere program and may not contain all information available regarding this patient. Last updated 17.[facility] [employer] Allergies No known active allergies Medications * Be aware that medications may not be up to date on this document. Alwaysverify current medications with the patient. acetaminophen CR (Tylenol 8 Hour) 650 MG tablet Take 1 (one) tablet by mouth every 8 hours as needed for Pain Active ASPIRIN 81 PO Active metoprolol succinate XL 24hr (Toprol XL) 25 MG tablet Take 1 (one) tablet by mouth once daily 07/11/19 24 Active triamcinolone acetonide (Kenalog) 0.1 % cream Apply to affected area 2 times daily 10/10/19 24 Active baclofen (Lioresal) 10 MG tablet Take 1 (one) tablet by mouth 3 times daily as needed for Muscle Spasms 10/11/19 24 Active Docusate Sodium (DSS) 100 MG Take 100 mg by mouth 2 times daily as needed 07/11/19 24 Active gabapentin (Neurontin) 300 MG capsule Take 1 (one) capsule by mouth 3 times daily 09/28/19 24 Active temazepam (Restoril) 30 MG capsule Take 1 (one) capsule by mouth 08/31/19 25 Active naproxen (Naprosyn) 250 MG tablet Take 1 (one) tablet by mouth 2 times daily Active botulinum toxin type A 100 units/1 ml (Botox) 100 UNIT injectionIndica tions:Muscle Spasticity Inject 6 mL into muscle Every 90 days for 90 days Reasons: Muscle Spasticity 6 mL 3 09/02/19 25 Active albuterol HFA (Proventil; Ventolin; Proair) 108 (90 Base) MCG/ACT inhaler Inhale 1 (one) puff to 2 (two) puffs by mouth every 6 hours as needed for Shortness of Breath, Wheezing or Cough Active desipramine (Norpramin) 25 MG tablet Take 4 (four) tablets by mouth at bedtime Discontin ued(List Clean-Up) famotidine (Pepcid) 20 MG tablet Take 1 (one) tablet by mouth once daily Discontin ued(List Clean-Up) haloperidol (Haldol) 0.5 MG tablet Take 1 (one) tablet by mouth every 6 hours as needed for Agitation Discontin ued(List Clean-Up) ondansetron (Zofran) 4 MG tablet Take 1 (one) tablet by mouth every 6 hours as needed for Nausea/Vomiting Discontin ued(List Clean-Up) tiZANidine (Zanaflex) 4 MG tablet Take 1 (one) tablet by mouth every 8 hours as needed for Muscle Spasms Discontin ued(List Clean-Up) polyethylene glycol 3350 (MiraLax) 17 g packet Take 17 (seventeen) g by mouth once daily as needed for Constipation Discontin ued(List Clean-Up) Sennosides (Senna) 8.6 MG Take 1 tablet by mouth as directed Discontin ued(List Clean-Up) albuterol HFA (Proventil; Ventolin; Proair) 108 (90 Base) MCG/ACT inhaler Inhale 1 (one) puff to 2 (two) puffs by mouth every 6 hours as needed for Shortness of Breath, Wheezing or Cough 04/19/19 22 08/08/2 025 Discontin ued(List Clean-Up) ALPRAZolam (Xanax) 0.5 MG tablet Take 1 (one) tablet by mouth 2 times daily as needed for Other, Insomnia or Anxiety anxiety 08/23/19 025 Discontin ued(List Clean-Up) haloperidol (Haldol) 1 MG tablet Take 1 (one) tablet by mouth as directed 10/05/19 23 025 Discontin ued(List Clean-Up) haloperidol (Haldol) 2 MG tablet Take 1 (one) tablet by mouth as directed 05/14/19 23 025 Discontin ued(List Clean-Up) LORazepam (Ativan) 0.5 MG tablet Take 1 (one) tablet by mouth 2 times daily as needed anxiety 03/30/19 22 025 Discontin ued(List Clean-Up) hydrOXYzine HCl (Atarax) 25 MG tablet Take 1 (one) tablet by mouth 3 times daily 09/21/19 22 025 Discontin ued(List Clean-Up) vitamin D, ergocalciferol, (Drisdol) 1.25 MG (84680 UT) capsule Take 1 (one) capsule by mouth every 7 days 025 Discontin ued(List Clean-Up) oxyCODONE-aceta minophen (Percocet) 10-325 MG tablet Take 1 (one) tablet by mouth 2 times daily as needed 07/11/19 24 025 Discontin ued(List Clean-Up) pantoprazole EC (Protonix) 40 MG tablet Take 1 (one) tablet by mouth 2 times daily 09/02/19 24 025 Discontin ued(List Clean-Up) acetaminophen-c odeine (Tylenol #2) 300-15 MG tablet Take 1 (one) tablet by mouth every 8 hours 07/16/19 25 025 Discontin ued(List Clean-Up) doxycycline monohydrate 100 MG capsule Take 1 (one) capsule by mouth 2 times daily 07/22/19 25 025 Discontin ued(List Clean-Up) imiquimod (Aldara) 5 % cream Apply 1 packet to affected area 08/22/19 025 Discontin ued(List Clean-Up) amoxicillin (Amoxil) 500 MG tablet Take 1 (one) tablet by mouth every 8 hours 09/09/19 25 025 Discontin ued(List Clean-Up) sertraline (Zoloft) 50 MG tablet Take 1 (one) tablet by mouth once daily Discontin ued(List Clean-Up) omeprazole (PriLOSEC) 20 MG capsule Take 1 (one) capsule by mouth as directed Discontin ued(List Clean-Up) nicotine (Nicoderm CQ) 21 MG/24HR patch Apply 1 (one) patch to skin once daily Discontin ued(List Clean-Up) meloxicam (Mobic) 7.5 MG tablet Take 1 (one) tablet by mouth as directed Discontin ued(List Clean-Up) amoxicillin-cla vulanate (Augmentin) 875-125 MG tablet Take 1 (one) tablet by mouth as directed Discontin ued(List Clean-Up) Active Problems Problem Noted Date Diagnosed Date Current every day non-nicotine vaping 09/17/2024 Obesity (BMI 30-39.9) 09/14/2024 Gastroesophageal reflux disease 05/11/2024 Memory loss 05/11/2024 Bleeding hemorrhoids 01/08/2024 Psoriasis 10/10/2023 Chronic pain disorder 07/11/2023 Primary [...] Encounters Date Type Department Care Team Description 11/03/2024 Orders Only [facility] [address] [place] [address] Pepe Trevino MD Right elbow pain 10/29/2024 10:45 AM CDT Office Visit [facility] - Orthopedics [address] [place] [address], [facility] [place] [address] Baltazar Gonzales MD S/P spinal fusion (Primary Dx) 10/29/2024 9:53 AM CDT - 10/29/2024 11:59 PM CDT Hospital Encounter [facility] [address]L [address] [facility]. [place] [address] Baltazar Gonzales MD Discharge Disposition: Home or Self Care 10/29/2024 Travel 10/19/2024 Orders Only [facility] [address] [place] [address] [place] [address] Baltazar Gonzales MD S/P spinal fusion 09/01/2024 10:30 AM CDT Procedure visit [facility] - Neurology [address] [facility], [place] [address] William Harrison MD Muscle spasticity 09/01/2024 Travel from Last 3 Months Immunizations Immunization Administration Dates Next Due DWAINE AGUILAA 12+ yr 50mcg/0.5mL 01/28/2023 FLU VACCINE TRI IIV3 SPLIT P F IM (FLUVIRIN) 11/21/2023 INFLUENZA VACCINE, QUADR. (F LUZONE; FLULAVAL; FLUARIX; [...] Answer Date Recorded Patient Health Questionnaire-2 Score 3 10/29/2024 Sex and Gender Information Value Date Recorded [...] 35% 11/24/2021 7 :00 PM CDT Weight 98.7 kg (217 lb 9.6 oz) 09/01/2024 10:06 AM CDT Height 180.3 cm (5' 11) 09/01/2024 10:06 AM CDT Body Mass Index 30.35 09/01/2024 10:06 AM CDT Plan of Treatment Upcoming Encounters Date Type Department Care Team (Late st Contact Info) Description 11/10/2024 10:15 AM CDT Office Visit [facility] - Orthopedics [address] [place] [address], [place] [phone] Pepe Trevino MD [address] [place] [address] [address] [place] [address] 12/01/2024 2:30 PM CDT Procedure visit [facility] - Neurology [address] [place] [address], [place] [address] William Harrison MD [address] [place] [address] [address] [facility] [address] Health Maintenance Due Date Last Done Comments HIV SCREENING 2000 HEPATITIS C SCREENING 09/08/2003 HEPATITIS B VACCINE (1 of 3 - 19+ 3-dose series) 2004 HPV VACCINE (1 - 3-dose SCDM series) 2012 COVID-19 VACCINE ( season) 2023 01/28/2023, 07/25/2022, 06/13/2022, Additional history exists DEPRESSION SCREENING 03/18/2024 INFLUENZA VACCINE (#1) 2024 11/21/2023, 2022 DTAP/TDAP/TD VACCINES (5 - Td or Tdap) 11/07/2031 11/06/2021, 09/18/2020, 09/18/2020, Additional history exists ZOSTER VACCINE (1 of 2) 09/13/2035 HIB VACCINE Aged Out No longer eligi [...] this topic Medical Devices Implanted Type Area Two Needle Machine Operator Device Identifier Shelf Expiration Date Model / Serial / Lot Screw 5.5mm 30mm Ma Spne Solera Cd Hzn Implanted:Qty: 4 on 11/07/2021 by Baltazar Gonzales MD at [facility] N/A: Spine Thoracic [employer] [id number] / / Screw 5.5mm 35mm Ma Spne Solera Cd Hzn Implanted:Qty: 4 on 11/07/2021 by Baltazar Gonzales MD at [facility] N/A: Spine Thoracic [employer] [id number] / / Screw Set Ti Spnl Brk Off Cd Hzn Nonster Implanted:Qty: 14 on 11/07/2021 by Baltazar Gonzales MD at [facility] N/A: Spine Thoracic [employer] [id number] / / Screw 5.5mm 40mm Ma Spne Solera Cd Hzn Implanted:Qty: 3 on 11/07/2021 by Baltazar Gonzales MD at [facility] N/A: Spine Thoracic [employer] [id number] / / Screw 6.5mm 40mm Ma Spne Solera Cd Hzn Implanted:Qty: 3 on 11/07/2021 by Baltazar Gonzales MD at [facility] N/A: Spine Thoracic [employer] [id number] / / Jaime Implanted:Qty: 1 on 11/07/2021 by Baltazar Gonzales MD at [facility] N/A: Spine Thoracic [employer] [id number] / / Graft Bone Grftn Dbm Plif 10x2.5cm - [id number] Implanted:Qty: 1 on 11/07/2021 by Baltazar Gonzales MD at [facility] N/A: Spine Thoracic [employer] 09/03/2024 [id number] / [id number] / Procedures Procedure Name Priority Date/Time Associated Diagnosis Comments XR THORACIC SPINE 2VW Routine 10/29/2024 10:00 AM CDT S/P spinal fusion [place] CHEMODENERV 1 EXTREM 1-4 EA Routine 09/01/2024 2:54 PM CDT Muscle spasticity OH CHEMODENERV ONE EXTREM 1-4 MUSCLES Routine 09/01/2024 2:54 PM CDT Muscle spasticity OH NDL EMG GDN CONJUNCT CHEMODNRVTJ Routine 09/01/2024 2:54 PM CDT Muscle spasticity from Last 3 Months Results * XR Thoracic Spine 2Vw (10/29/2024 10:00 AM CDT) Anatomical Region Laterality Modality Spine Computed Radiogr aphy 10/29/2024 11:1 8 AM CDT Narrative 10/29/2024 11:55 AM CDT PROCEDURE: XR THORACIC SPINE 2VW, DATE/TIME OF EXAM: 10/29/2024 10:01 AM, LOCATION [facility] INDICATION: Z98.1: S/P spinal fusion COMPARISON: Thoracic spine from 10/24/2023. FINDINGS/IMPRESSION: Redemonstration of posterior spinal fusion of T3-T10 with paired rods and screws. Hardware is intact. Alignment is not changed compared to prior exam. Redemonstration of compression fracture of T7 vertebral body, unchanged in alignment. Elevation of right hemidiaphragm with right lung base atelectasis. The report was drafted by Óscar Riggins MD (resident assistant) 10/29/2024 11:18 AM. > Dictated by Biomedical Scientist I, Devin Mata MD have personally reviewed and interpreted this examination/study. > Interpreting Provider: Devin Mata MD on 10/29/2024 11:55 AM Procedure Note Devin Mata MD - 10/29/2024 PROCEDURE: XR THORACIC SPINE 2VW, DATE/TIME OF EXAM: 10/29/2024 10:01AM, LOCATION [facility] INDICATION: Z98.1: S/P spinal fusion COMPARISON: Thoracic spine from 10/24/2023. FINDINGS/IMPRESSION: Redemonstration of posterior spinal fusion of T3-T10 with paired rodsand screws. Hardware is intact. Alignment is not changed compared to prior exam. Redemonstration of compression fracture of T7 vertebral body, unchangedin alignment. Elevation of right hemidiaphragm with right lung base atelectasis. The report was drafted by Óscar Riggins MD (resident assistant) 10/29/2024 11:18 AM. > Dictated by Biomedical Scientist I, Devin Mata MD have personally reviewed and interpreted this examination/study. > Interpreting Provider: Devin Mata MD on 10/29/2024 11:55 AM Baltazar Gonzlaes MD DIAGNOSTIC IMAGING ORDERABLES Fi nal Result * [place] NDL EMG GDN CONJUNCT CHEMODNRVTJ, [place] CHEMODENERV ONE EXTREM 1-4 MUSCLES, [place] CHEMODENERV 1 EXTREM1-4 EA (09/01/2024 2:54 PM CDT) Narrative William Harrison MD - 09/01/2024 2:54 PM CDT Wliliam Harrison MD 09/01/2024 2:55 PM See procedure note for documentation. William Harrison MD PROCEDURE/MINOR SURGICAL ORDERAB LES Final Result from Last 3 Months Insurance [facility] Advance Directives * Full Code (Latest Code Status on File) Date Activated Date Inactivated Comments 11/06/2021 1:39 AM 11/24/2021 9:50 PM Care Teams Bag Sorter Relationship Specialty Start Date End Date Ran Thacker MD [address] [address] PCP - General Family Medicine 06/20/23
--- OUTSIDE RECORDS SUMMARY | 2024-11-03 20:10 | XMS_ITS | Encounter Summary ---
Author Organization [facility] Address [address] [place] [address] Phone Care Team Providers Care Food Processor Name Role Phone Ran Thacker MD Primary Care Provider [phone] Korey Matute MD Unavailable [phone] Fernando Camarillo MD Unavailable Reason for Visit * Reason Comments Medication Refill Encounter Details Date Type Department Care Team (Late st Contact Info) Description 09/26/2023 Refill [facility] - Family Medicine [facility] #2 [place] [address] Rna Thacker MD #[address] [address] Medication Refill Social History Tobacco Use Types Packs/Day Years Used Date Smoking Tobacco: Former Cigarettes Smokeless Tobacco: Never Alcohol Use Standard Drinks/Week Comments Not Currently 0 (1 standard drink = 0.6 oz pur e alcohol) [facility] Utilities Answer Date Recorded In the past 12 months has [employer], gas, oil, or water company threatened to [...] often do you attend chur ch or spiritism services? Never 04/03/2023 Do you belong to [...] Score - Questions 1-9 0 03/18 [facility] [...] place to sleep or slept in a [place] health care facility (including now)? No 04/03/2023 Sex and Gender [...] Pending Prescriptions Disp Refills ergocalciferol (VITAMIN D) 56406 UNIT Capsule [Pharmacy Med Name: VITAMIN D2 [...] Provider Dept 10/10/23 Appointment Ran Thacker MD [facility] Showing [...] Provider Dept 10/10/23 Appointment Ran Thacker MD [facility] Showing future appointments within next 90 days and meeting all other requirements documented in this encounter Plan of Treatment Upcoming Encounters Date Type Department Care Team (Late st Contact Info) Description 01/19/2025 9:30 AM INSURANCE COUNSELOR Office Visit [facility] - Family Medicine - [place] [address] [place] [address] Ran Thacker MD #[address] [address] 03/22/2025 9:00 AM INSURANCE COUNSELOR [facility] [address] [place] [address] Renan Hernandez MD [address] [place] [address] Discharge Disposition: Discharged to home or Selfcare 03/22/2025 9:40 AM INSURANCE COUNSELOR [facility] [address] [place] [address] Renan Hernandez MD [address] [place] [address] Discharge Disposition: Discharged to home or Selfcare documented as of this encounter Visit Diagnoses Diagnosis Vitamin D deficiency Unspecified vitamin D deficiency documented in this encounter Additional Health Concerns Assessment Noted Time PHQ-9 Depression Total Score: 0 04/03/19 9:52 AM INSURANCE COUNSELOR documented as of this encounter Care Teams Food Processor Relationship Specialty Start Date End Date Ran Thacker MD #[address] [address] PCP - General Family Medicine 11/30/22 Korey Matute MD #2 [place] [phone] Consulting Physician Neurology 02/01/23 Fernando Camarillo MD #[address] [address] Consulting Physician Colon and Rectal Surgery 01/31/24 documented as of this encounter
--- OUTSIDE RECORDS SUMMARY | 2024-11-03 20:11 | XMS_ITS | Encounter Summary ---
Author Organization [facility] Address [address] [place] [address] Phone Care Team Providers Care Shear Grinder Operator Helper Name Role Phone Ran Thacker MD Primary Care Provider [phone] Milena Chakraborty Unavailable Unavailab Milena Pollard Unavailable Unavailab Korey Mccloud MD Unavailable [phone] Fernando Camarillo MD Unavailable Reason for Visit * Reason Comments Medication Refill Encounter Details Date Type Department Care Team (Late st Contact Info) Description 03/24/2023 Refill [facility] - Family Medicine [facility] #2 [place] [address] Ran Thacker MD #[address] [address] Medication Refill Social History Tobacco Use Types [...] Jaycee Soto RN - 03/24/2023 5:46 PM AFTER SCHOOL COORDINATOR Medication failed the protocol, provider to review [...] 90 days and meeting all other requirements R SCHOOL COORDINATOR documented in this encounter Plan of Treatment Upcoming Encounters Date Type Department Care Team (Late st Contact Info) Description 01/19/2025 9:30 AM AFTER SCHOOL COORDINATOR Office Visit [facility] Medical Group - Family Medicine - [place] [address]2 [place] [address] Ran Thacker MD [address] [address] 03/22/2025 9:00 AM AFTER SCHOOL COORDINATOR Lab [facility] Oncology Services [address] [place] [address] Renan Hernandez MD [address] [place] [address] Discharge Disposition: Discharged to home or Selfcare 03/22/2025 9:40 AM AFTER SCHOOL COORDINATOR Office Visit [facility] Oncology Services [address] [place] [address] Renan Hernandez MD [address] [place] [address] Discharge Disposition: Discharged to home or Selfcare documented as of this encounter Visit Diagnoses Not on filedocumented in this encounter Additional Health Concerns Infection Onset Date Last Indicated Resolved Time COVID - 19 03/28/2023 03/28/2023 04/07/2023 12:1 6 AM AFTER SCHOOL COORDINATOR documented as of this encounter Care Teams Shear Grinder Operator Helper Relationship Specialty Start Date End Date Ran Thacker MD #[address] [address] PCP - General Family Medicine 11/30/22 Milena Chakraborty LSW [place] Database Software Technician 12/27/22 04/03/23 Milena Chakraborty LSW [place] Marriage Therapist Database Software Technician 12/27/22 06/24/23 Korey Matute MD #2 [place] [phone] Consulting Physician Neurology 02/01/23 Fernando Camarillo MD #[address] [address] Consulting Physician Colon and Rectal Surgery 01/31/24 documented as of this encounter
--- OUTSIDE RECORDS SUMMARY | 2024-11-03 20:11 | XMS_ITS | Encounter Summary ---
Author Organization [facility] Address [address] [place] [address] Phone Care Team Providers Care Ferryboat Operator Name Role Phone Ran Thacker MD Primary Care Provider [phone] Milena Chakraborty Unavailable Unavailab Milena Pollard Unavailable Unavailab Korey Mccloud MD Unavailable [phone] Fernando Camarillo MD Unavailable Reason for Visit * Reason Comments Medication Refill Encounter Details Date Type Department Care Team (Late st Contact Info) Description 01/24/2023 Refill [facility] - Family Medicine [facility] #2 [place] [address] Ran Thacker MD #[address] [address] Medication Refill Social History Tobacco Use Types [...] Coronavirus/COVID-19? No / Unsure 01/25/2023 9:16 AM CHIEF SERVICE DISPATCHER documented as of this encounter Miscellaneous Notes * Telephone Encounter - Jaycee Soto RN - 01/24/2023 8:51 AM CHIEF SERVICE DISPATCHER Medication failed the protocol, provider to review [...] 90 days and meeting all other requirements F SERVICE DISPATCHER documented in this encounter Plan of Treatment Upcoming Encounters Date Type Department Care Team (Late st Contact Info) Description 01/19/2025 9:30 AM CHIEF SERVICE DISPATCHER Office Visit [facility] - Family Medicine - [place] [address] [place] [address] Ran Thacker MD #[address] [address] 03/22/2025 9:00 AM CHIEF SERVICE DISPATCHER [facility] [address] [place] [address] Renan Hernandez MD 0 [place] [address] Discharge Disposition: Discharged to home or Selfcare 03/22/2025 9:40 AM CHIEF SERVICE DISPATCHER Office Visit [facility] Oncology Services [address] [place] [address] Renan Hernandez MD [address] [place] [address] Discharge Disposition: Discharged to home or Selfcare documented as of this encounter Visit Diagnoses Not on filedocumented in this encounter Additional Health Concerns Infection Onset Date Last Indicated Resolved Time COVID - 19 03/28/2023 03/28/2023 04/07/2023 12:1 6 AM CHIEF SERVICE DISPATCHER documented as of this encounter Care Teams Ferryboat Operator Relationship Specialty Start Date End Date Ran Thacker MD #[address] [address] PCP - General Family Medicine 11/30/22 Milena Chakraborty LSW [place] Manager Income Tax 12/27/22 04/03/23 Milena Chakraborty LSW [place] Staff Pharmacist Hospital Manager Income Tax 12/27/22 06/24/23 Korey Matute MD #2 [place] [address] Consulting Physician Neurology 02/01/23 Fernando Camarillo MD [address] [address] Consulting Physician Colon and Rectal Surgery 01/31/24 documented as of this encounter
--- OUTSIDE RECORDS SUMMARY | 2024-11-03 20:11 | XMS_ITS | Encounter Summary ---
Author Organization [facility] Address [address] [place] [address] Phone Care Team Providers Care Machine Erector Name Role Phone Ran Thacker MD Primary Care Provider [phone] Milena Chakraborty Unavailable Unavailab Milena Pollard Unavailable Unavailab Korey Mccloud MD Unavailable Fernando Camarillo MD Unavailable Reason for Visit * Reason Comments Medication Refill Encounter Details Date Type Department Care Team (Late st Contact Info) Description 02/20/2023 Refill [facility] Medical [facility] - Family Medicine [facility] #2 [place] [address] Ran Thacker MD #[address] [address] Medication Refill Social History Tobacco Use Types [...] Coronavirus/COVID-19? No / Unsure 01/25/2023 9:16 AM CRAPS MANAGER documented as of this encounter Miscellaneous Notes * Telephone Encounter - Jaycee Soto RN - 02/20/2023 12:32 PM CRAPS MANAGER Medication failed the protocol, provider to review [...] 90 days and meeting all other requirements S MANAGER documented in this encounter Plan of Treatment Upcoming Encounters Date Type Department Care Team (Late st Contact Info) Description 01/19/2025 9:30 AM CRAPS MANAGER [facility] #2 [place] [address] Ran Thacker MD #[address] [address] 03/22/2025 9:00 AM CRAPS MANAGER [facility] [address] [place] [address] Renan Hernandez MD 0 [place] [address] Discharge Disposition: Discharged to home or Selfcare 03/22/2025 9:40 AM CRAPS MANAGER Office Visit [facility] On[facility] Services [address] [place] [address] Renan Hernandez MD [address] [place] [address] Discharge Disposition: Discharged to home or Selfcare documented as of this encounter Visit Diagnoses Not on filedocumented in this encounter Additional Health Concerns Infection Onset Date Last Indicated Resolved Time COVID - 19 03/28/2023 03/28/2023 04/07/2023 12:1 6 AM CRAPS MANAGER documented as of this encounter Care Teams Machine Erector Relationship Specialty Start Date End Date Ran Thacker MD #2 [facility] [address] [place] [address] PCP - General Family Medicine 11/30/22 Milena Chakraborty LAPPING MACHINE SET UP OPERATOR [place] Color Printer Operator 12/27/22 04/03/23 Milena Chakraborty LSW [place] Curb And Gutter Laborer Color Printer Operator 12/27/22 06/24/23 Korey Matute MD #2 [place] [address] Consulting Physician Neurology 02/01/23 Fernando Camarillo MD #[address] [address] Consulting Physician Colon and Rectal Surgery 01/31/24 documented as of this encounter
--- OUTSIDE RECORDS SUMMARY | 2024-11-03 20:11 | XMS_ITS | Encounter Summary ---
Author Organization [facility] Address [address] [place] [address] Phone Care Team Providers Care Adobe Cq Developer Name Role Phone Ran Thacker MD Primary Care Provider [phone] Milena Chakraborty Unavailable Unavailab Milena Pollard Unavailable Unavailab Korey Mccloud MD Unavailable [phone] Fernando Camarillo MD Unavailable Reason for Visit * Reason Comments Medication Refill Encounter Details Date Type Department Care Team (Late st Contact Info) Description 03/25/2023 Refill [facility] Medical [facility] - Family Medicine [facility] #2 [place] [address] Ran Thacker MD #[address] [address] Medication Refill Social History Tobacco Use Types [...] 0 Signed by: Ran Thacker MD [facility] S REPRESENTATIVE LEATHER GOODS documented in this encounter Plan of Treatment Upcoming Encounters Date Type Department Care Team (Late st Contact Info) Description 01/19/2025 9:30 AM SALES REPRESENTATIVE LEATHER GOODS Office Visit [facility] Medical Group - Family [facility] #2 [place] [address] Ran Thacker MD #[address] [address] 03/22/2025 9:00 AM SALES REPRESENTATIVE LEATHER GOODS Lab [facility] Oncology Services [address] [place] [address] Renan Hernandez MD [address] [place] [address] Discharge Disposition: Discharged to home or Selfcare 03/22/2025 9:40 AM SALES REPRESENTATIVE LEATHER GOODS Office Visit [facility] Oncology Services [address] [place] [address] Renan Hernandez MD [address] [place] [address] Discharge Disposition: Discharged to home or Selfcare documented as of this encounter Visit Diagnoses Not on filedocumented in this encounter Additional Health Concerns Infection Onset Date Last Indicated Resolved Time COVID - 19 03/28/2023 03/28/2023 04/07/2023 12:1 6 AM SALES REPRESENTATIVE LEATHER GOODS documented as of this encounter Care Teams Adobe Cq Developer Relationship Specialty Start Date End Date Ran Thacker MD #2 [facility] [address] [place] [address] PCP - General Family Medicine 11/30/22 Milena Chakraborty LSW [place] Salon Designer 12/27/22 04/03/23 Milena Chakraborty LSW [place] Soldering Machine Operator Automatic Salon Designer 12/27/22 06/24/23 Korey Matute MD #2 [place] [address] Consulting Physician Neurology 02/01/23 Fernando Camarillo MD #[address] [address] Consulting Physician Colon and Rectal Surgery 01/31/24 documented as of this encounter
--- OUTSIDE RECORDS SUMMARY | 2024-11-03 20:11 | XMS_ITS | Encounter Summary ---
Author Organization [facility] Address [address] [facility] [place] [address] Care Team Providers Care White Sugar Pan Tank Operator Name Role Phone Ran Thacker MD Primary Care Provider [phone] Reason for Visit * Reason Onset Date Comments Appointment 11/21/2023 Encounter Details Date Type Department Care Team (Late st Contact Info) Description 11/21/2023 Telephone [facility] - Centralized Scheduling [address] [place] [phone] William Harrison MD [address] [address] Appointment Social History Tobacco Use [...] Description 11/10/2024 10:15 AM CDT Office Visit [facility] Physician Group - Orthopedics [address] [place] [phone] Pepe Trevino MD [address] [place] [phone] 12/01/2024 2:30 PM CDT [facility] [address] [place] [address] William Harrison MD [address] [place] [address] documented as of this encounter Visit Diagnoses Not on filedocumented in this encounter Care Teams White Sugar Pan Tank Operator Relationship Specialty Start Date End Date Ran Thacker MD 2 [place] [address] PCP - General Family Medicine 06/20/23 documented as of this encounter
--- OUTSIDE RECORDS SUMMARY | 2024-11-03 20:11 | XMS_ITS | Clinical Summary ---
Author Organization [facility] Address [address] [place] [address] Care Team Providers Care Button Broacher Name Role Phone Ran Thacker MD Primary Care Provider [phone] [phone] Allergies No known active allergies Medications gabapentin [...] P M CDT Height 180.3 cm (5' 10.98) 07/14/2024 6:32 PM C DT Body Mass Index 29.75 07/14/2024 6:32 PM CDT Plan of Treatment Health Maintenance Due Date Last Done Comments Depression Screening 1985 Hepatitis C Screening 1985 Varicella Vaccines (1 of 2 - 13+ 2-dose series) 1998 Hepatitis B Screening 09/13/2003 Regular Well Visit/Exam 18-64 09/13/2003 HPV Vaccines (1 - 3-dose SCD M series) 2012 Covid-19 Vaccine (4 - 2023-2 5 season) 2023 03/31/2021, 10/12/2020, 09/14/2020 Influenza Vaccine (#1) 2024 , 12/27/2022 DTaP/Tdap/Td Vaccine (4 - Td or Tdap) 11/07/2031 11/06/2021, 09/18/2020, 10/07/2015 Pneumococcal vaccine <65 Aged Out No longer eligible based on patient's age to complete this topic Insurance [facility] Care Teams Button Broacher Relationship Specialty Start Date End Date Ran Thacker MD [address] [facility] [address] [address] PCP - General Family Medicine 07/10/24
--- OUTSIDE RECORDS SUMMARY | 2024-11-03 20:11 | XMS_ITS | Encounter Summary ---
Author Organization [facility] Address [address] [place] [address] Phone Care Team Providers Care Rubber Mill Tender Name Role Phone Ran Thacker MD Primary Care Provider [phone] Milena Chakraborty KITCHEN FOOD SERVER Unavailable Unavailab Milena Plolard Unavailable Unavailab Korey Mccloud MD Unavailable [phone] Fernando Camarillo MD Unavailable Encounter Details Date Type Department Care Team (Late st Contact Info) Description 01/16/2023 Telephone [facility] [address], [address] [place] [address] Cindy Jordan, OT [place] Social [...] st Contact Info) Description 01/19/2025 9:30 AM PRODUCTION ASSEMBLER Office Visit [facility] - Family [facility] #2 [place] [address] Ran Thacker MD #[address] [address] 03/22/2025 9:00 AM PRODUCTION ASSEMBLER [facility] [address] [place] [address] Renan Hernandez MD [address] [place] [address] Discharge Disposition: Discharged to home or Selfcare 03/22/2025 9:40 AM PRODUCTION ASSEMBLER Office Visit [facility] Oncology Services [address] [place] [address] Renan Hernandez MD [address] [place] [address] Discharge Disposition: Discharged to home or Selfcare documented as of this encounter Visit Diagnoses Not on filedocumented in this encounter Additional Health Concerns Infection Onset Date Last Indicated Resolved Time COVID - 19 03/28/2023 03/28/2023 04/07/2023 12:1 6 AM PRODUCTION ASSEMBLER documented as of this encounter Care Teams Rubber Mill Tender Relationship Specialty Start Date End Date Ran Thacker MD #[address] [address] PCP - General Family Medicine 11/30/22 Milena Chakraborty LSW [place] Radiology Manager 12/27/22 04/03/23 Milena Chakraborty LSW [place] Nc Manager Radiology Manager 12/27/22 06/24/23 Korey Matute MD #[address] [place] [address] Consulting Physician Neurology 02/01/23 Fernando Camarillo MD #[address] [place] [address] Consulting Physician Colon and Rectal Surgery 01/31/24 documented as of this encounter
--- OUTSIDE RECORDS SUMMARY | 2024-11-03 20:11 | XMS_ITS | Encounter Summary ---
Author Organization [facility] Address [address] [place] [address] Phone Care Team Providers Care Corner Cutter Name Role Phone Ran Thacker MD Primary Care Provider [phone] Milena Chakraborty Unavailable Unavailab Milena Pollard Unavailable Unavailab Korey Mccloud MD Unavailable [phone] Fernando Camarillo MD Unavailable Reason for Visit * Reason Comments Medication Refill Encounter Details Date Type Department Care Team (Late st Contact Info) Description 01/28/2023 Refill [facility] Medical Group - Family Medicine [facility] #2 [place] [address] Ran Thacker MD #[address] [address] Medication Refill Social History Tobacco Use Types [...] Coronavirus/COVID-19? No / Unsure 01/25/2023 9:16 AM BACK GRINDER documented as of this encounter Miscellaneous Notes * Telephone Encounter - Ran Thacker MD - 01/28/2023 4:00 PM BACK GRINDER Thanks for clarifying this! I removed Tizanidine from his med list :) GRINDER * Telephone Encounter - Nakia Davis RN [...] Provider Dept 04/04/23 Appointment Ran Thacker MD [facility] Showing future appointments within next 90 days and meeting all other requirements Passed - ALT less than 90 and AST less than 55 on record in past 12 months SGOT (AST) Date Value Ref Range Status 12/27/2022 14 5 - 34 U/L Final SGPT (ALT) Date Value Ref Range Status 12/27/2022 26 0 - 55 U/L Final GRINDER documented in this encounter Plan of Treatment Upcoming Encounters Date Type Department Care Team (Late st Contact Info) Description 01/19/2025 9:30 AM BACK GRINDER Office Visit [facility] Medical Group - Family Medicine [facility] #[address] [place] [address] Ran Thacker MD #[address] [address] 03/22/2025 9:00 AM BACK GRINDER Lab [facility] Oncology Services [address] [place] [address] Renan Hernandez MD 0 [place] [address] Discharge Disposition: Discharged to home or Selfcare 03/22/2025 9:40 AM BACK GRINDER Office Visit [facility] Oncology Services [address] [place] [address] Renan Hernandez MD [address] [place] [address] Discharge Disposition: Discharged to home or Selfcare documented as of this encounter Visit Diagnoses Not on filedocumented in this encounter Additional Health Concerns Infection Onset Date Last Indicated Resolved Time COVID - 19 03/28/2023 03/28/2023 04/07/2023 12:1 6 AM BACK GRINDER documented as of this encounter Care Teams Corner Cutter Relationship Specialty Start Date End Date Ran Thacker MD #2 [facility] [address] [place] [address] PCP - General Family Medicine 11/30/22 Milena Chakraborty LSW [place] Wedding Planner 12/27/22 04/03/23 Milena Chakraborty LSW [place] Tire Layer Wedding Planner 12/27/22 06/24/23 Korey Matute MD #2 [place] [address] Consulting Physician Neurology 02/01/23 Fernando Camarillo MD #[address] [address] Consulting Physician Colon and Rectal Surgery 01/31/24 documented as of this encounter
--- OUTSIDE RECORDS SUMMARY | 2024-11-03 20:12 | XMS_ITS | Clinical Summary ---
Author Organization [facility] Address [address] [place] [address] Care Team Providers Care Etl Informatica Architect Name Role Phone Ran Layne Gerson CASTELLANO Primary Care Provider [phone] Allergies No known active allergies Medications loratadine [...] 10:10 PM CDT Height 177.8 cm (5' 10) 11/05/2021 10:10 PM CDT Body Mass Index 25.31 11/05/2021 10:10 PM CDT Plan of Treatment Health Maintenance Due Date Last Done Comments Annual Physical 1988 Hepatitis C 09/13/2003 Hepatitis B Vaccines (1 of 3 - 19+ 3-dose series) 2004 Pneumococcal Vaccine: Pediatrics (0 to 5 Years) and At-Risk Patients (6 to 49 Years) (1 of 2 - PCV) 2004 HPV Vaccines (1 - 3-dose SCD M series) 2012 COVID-19 Vaccine ( - 2023-2 5 season) 2023 03/31/2021, 10/12/2020, 09/14/2020 DTaP, Tdap and Td Vaccines ( 2 - Td or Tdap) 10/06/2025 10/07/2015 Meningococcal B Vaccine Aged Out No l onger eligible based on patient's age to complete this topic Meningococcal Vaccine Aged Out No alice astrid eligible based on patient's age to complete this topic RSV Immunizations Under 20 Months Aged Out No longer eligible b ased on patient's age to complete this topic Insurance [facility] Care Teams Etl Informatica Architect Relationship Specialty Start Date End Date Layne Tong NP [address] [place] [address] PCP - General Nurse Practitioner Family 11/26/19
--- OUTSIDE RECORDS SUMMARY | 2024-11-03 20:12 | XMS_ITS | Encounter Summary ---
Author Organization [facility] Address [address] [place] [address] Care Team Providers Care Test Cell Technician Name Role Phone Ran Thacker MD Primary Care Provider [phone] Encounter Details Date Type Department Care Team (Late st Contact Info) Description 11/03/2024 Orders Only [facility] - Orthopedics [address] [facility] [place] [address] Pepe Trevino MD [facility] [address] Right elbow pain Social History Tobacco Use Types Packs/Day Years [...] 6:15 AM DALIT Margaux Donald RN * Is person blind [...] Margaux Dimas RN documented in this encounter Plan of Treatment Upcoming Encounters Date Type Department Care Team (Late st Contact Info) Description 11/10/2024 10:15 AM CDT [facility] [address] [place] [phone] Pepe Trevino MD [address] [place] [phone] 12/01/2024 2:30 PM CDT Procedure visit [facility] - Neurology [address] [place] [phone] William Harrison MD [address] [place] [address] [place] [address] Scheduled Orders Name Type Priority Associated Diagnoses Orde r Schedule XR Elbow Right 3Vw or More Imaging Routine Right elbow pain 1 Occurrences starting 11/03/2024 until 11/03/2025 documented as of this encounter Visit Diagnoses Diagnosis Right elbow pain- Primary Pain in joint, upper arm documented in this encounter Care Teams Test Cell Technician Relationship Specialty Start Date End Date Ran Thacker MD [address] [place] [id number] PCP - General Family Medicine 06/20/23 documented as of this encounter
--- OUTSIDE RECORDS SUMMARY | 2024-11-03 20:12 | XMS_ITS | Encounter Summary ---
Author Organization [facility] Address [address] [place] [address] Phone Care Team Providers Care Canopy Stringer Name Role Phone Ran Thacker MD Primary Care Provider [phone] Milena Chakraborty Unavailable Unavailab Milena Pollard Unavailable Unavailab Korey Mccloud MD Unavailable [phone] Fernando Camarillo MD Unavailable Reason for Visit * Reason Comments Medication Refill Encounter Details Date Type Department Care Team (Late st Contact Info) Description 02/21/2023 Refill [facility] - Family Medicine [facility] [address] [place] [address] Ran Thacker MD [address] [address] Medication Refill Social History Tobacco Use Types [...] Coronavirus/COVID-19? No / Unsure 01/25/2023 9:16 AM COAT FITTER documented as of this encounter Miscellaneous Notes [...] 90 days and meeting all other requirements FITTER documented in this encounter Plan of Treatment Upcoming Encounters Date Type Department Care Team (Late st Contact Info) Description 01/19/2025 9:30 AM COAT FITTER Office Visit [facility] - Family Medicine - [place] [address] [place] [address] Ran Thacker MD [address] [address] 03/22/2025 9:00 AM COAT FITTER Lab [facility] [address] [place] [address] Renan Hernandez MD [address] [place] [address] Discharge Disposition: Discharged to home or Selfcare 03/22/2025 9:40 AM COAT FITTER Office Visit [facility] [address] [place] [address] Renan Hernandez MD [address] [place] [address] Discharge Disposition: Discharged to home or Selfcare documented as of this encounter Visit Diagnoses Not on filedocumented in this encounter Additional Health Concerns Infection Onset Date Last Indicated Resolved Time COVID - 19 03/28/2023 03/28/2023 04/07/2023 12:1 6 AM COAT FITTER documented as of this encounter Care Teams Canopy Stringer Relationship Specialty Start Date End Date Ran Thacker MD [address] [address] PCP - General Family Medicine 11/30/22 Milena Chakraborty LSW [place] [employer] And Wellness Coordinator 12/27/22 04/03/23 Milena Chakraborty LSW [place] Single Stroke Preformer Fitness And Wellness Coordinator 12/27/22 06/24/23 Korey Matute MD [address] [place] [address] Consulting Physician Neurology 02/01/23 Fernando Camarillo MD [address] [place] [address] Consulting Physician Colon and Rectal Surgery 01/31/24 documented as of this encounter
[2024-11-03 20:17] VITALS: BP 124/99; PULSE 65; RESP 16; TEMP 36.6; O2SAT 94
== END 2024-11-03 22:51 | disposition left against medical advice (07) ==
LOC: ANHED 22:33
PROVIDERS: PCP Family Medicine
DX: M79.671 Pain in right foot (principal)
CPT/HCPCS: 99199